=== PATIENT | male | born 1950 | race Caucasian/White ===

== ENCOUNTER → 2024-06-18 09:08 | Outpatient (BNVA) | payer SELFPAY | PROVIDERS: Visit Provider Clinical Nurse Specialist Adult Health | DX: E11.8 Type 2 diabetes mellitus with unspecified complications (principal); I10 Essential (primary) hypertension; E78.5 Hyperlipidemia, unspecified; E55.9 Vitamin D deficiency, unspecified | CPT/HCPCS: 80053; 80061; 82306; 82746; 83036; 83540; 83880; 85025 ==

== ENCOUNTER → 2024-07-20 08:59 | Outpatient (BNVA) | payer MEDICARE, SELFPAY | PROVIDERS: PCP Clinical Nurse Specialist Adult Health | DX: R50.9 Fever, unspecified (principal) | CPT/HCPCS: 87400; 87426 ==

== ENCOUNTER → 2024-09-03 10:41 | Outpatient (BNVA) | payer MEDICARE, SELFPAY | PROVIDERS: PCP Clinical Nurse Specialist Adult Health; Visit Provider Internal Medicine Cardiovascular Disease | DX: R07.9 Chest pain, unspecified (principal); I11.0 Hypertensive heart disease with heart failure; I50.9 Heart failure, unspecified; I47.20 Ventricular tachycardia, unspecified; E78.2 Mixed hyperlipidemia; E11.8 Type 2 diabetes mellitus with unspecified complications; G47.33 Obstructive sleep apnea (adult) (pediatric); E66.01 Morbid (severe) obesity due to excess calories; Z68.38 Body mass index [BMI] 38.0-38.9, adult; R94.31 Abnormal electrocardiogram [ECG] [EKG]; I45.10 Unspecified right bundle-branch block | CPT/HCPCS: 36415; 80048; 83880; 93005; 99205 ==

== ENCOUNTER 2024-09-12 20:59 | Emergency (ER) | payer MEDICARE, SELFPAY ==
[2024-09-12 21:16] VITALS: BP 131/60; PULSE 69; RESP 16; TEMP 36.9; O2SAT 92; BMI 42.5
[2024-09-12 21:31] LABS: Glucose Point of Care 551 mg/dL (70-110)
--- NOTE | 2024-09-12 21:54 | W.ED.RECABL ---
HPI - Recheck/Abnormal Lab/Rx General: Chief Complaint: Recheck/Abnormal Lab/Rx Stated Complaint: Blood Sugar register HIGH Time Seen by Provider: 09/12/24 21:39 History of Present Illness: Patient presents here to the ER because his glucometer read high. Patient is a insulin-dependent diabetic with a continuous glucose monitor and pump. There was some problem getting his normal insulin which was Humalog and he had to put Novolin R in his pump and has been working very good ever since for the last couple days. Related Data Home Medications Medication Instructions Recorded Confirmed acetaminophen 650 mg 650 mg PO Q8H 06/18/24 07/20/24 tablet,extended release (Tylenol Arthritis Pain) albuterol sulfate 2.5 mg/3 mL 2.5 mg inhalation Q6H PRN 06/18/24 07/20/24 (0.083 %) solution for nebulization shortness of breath or wheezing bupropion HCl 300 mg 24 hr tablet, 300 mg PO DAILY 06/18/24 07/20/24 extended release cetirizine 10 mg tablet 10 mg PO DAILY 06/18/24 07/20/24 cholecalciferol (vitamin D3) 25 25 mcg PO DAILY 06/18/24 07/20/24 mcg (1,000 unit) capsule docusate sodium 100 mg capsule 100 mg PO DAILY 06/18/24 07/20/24 (Colace) exenatide microspheres 2 mg/0.85 2 mg SUBCUT .weekly 06/18/24 07/20/24 mL subcutaneous auto-injector ([employer]) ezetimibe 10 mg tablet 10 mg PO DAILY 06/18/24 07/20/24 folic acid 1 mg tablet 1 mg PO DAILY 06/18/24 07/20/24 furosemide 40 mg tablet 80 mg PO DAILY 06/18/24 07/20/24 gabapentin 300 mg capsule 300 mg PO DAILY 06/18/24 07/20/24 insulin lispro 100 unit/mL 140 unit continuous subcutaneous 06/18/24 07/20/24 subcutaneous solution (Humalog infusion DAILY U-100 Insulin) isosorbide mononitrate 30 mg 30 mg PO DAILY 06/18/24 07/20/24 tablet,extended release 24 hr levothyroxine 200 mcg tablet 200 mcg PO DAILY 06/18/24 07/20/24 methotrexate sodium 2.5 mg tablet 20 mg PO .every week 06/18/24 07/20/24 metoclopramide HCl 10 mg tablet 10 mg PO DAILY 06/18/24 07/20/24 multivitamin with minerals-folic tab PO 06/18/24 07/20/24 acid 0.4 mg tablet omeprazole 20 mg capsule,delayed 20 mg PO DAILY 06/18/24 07/20/24 release prednisolone acetate 1 % eye 1 drp ophthalmic (eye) DAILY 06/18/24 07/20/24 drops,suspension ropinirole 3 mg tablet 3 mg PO .qhs 06/18/24 07/20/24 spironolactone 100 mg tablet 100 mg PO DAILY 06/18/24 07/20/24 Previous Rx's Medication Instructions Recorded adalimumab 40 mg/0.8 mL 40 mg (0.8 mL) SUBCUT Q14D #2 ea 06/18/24 subcutaneous syringe kit (Humira) ferrous sulfate 137 mg (45 mg 137 mg PO DAILY #30 tabs 06/18/24 iron) tablet,extended release (Slow Fe) CPAP Mask, tubing and all other #1 ea 06/20/24 supplies for CPAP benzonatate 200 mg capsule 200 mg PO BID PRN cough #20 caps 07/20/24 metoprolol succinate 50 mg 50 mg PO DAILY #90 tabs 09/03/24 tablet,extended release 24 hr insulin lispro 100 unit/mL 15 unit (0.15 mL) SUBCUT TID #15 mL 09/10/24 subcutaneous cartridge (Humalog U-100 Insulin) Allergies Allergy/AdvReac Type Severity Reaction Status Date / Time amoxicillin Allergy Severe anaphylaxis Verified 09/03/24 10:51 sulfamethoxazole Allergy Severe skin Verified 09/03/24 10:51 [From Bactrim] blisters trimethoprim [From Bactrim] Allergy Severe skin Verified 09/03/24 10:51 blisters meloxicam Allergy Intermediate swelling Verified 09/03/24 10:51 chlorhexadine Allergy Severe rash Uncoded 09/03/24 10:51 Review of Systems General: Reports: 10 or more systems reviewed and unremarkable except in HPI and below PFSH ED PFSH: Medical History NATIVIDAD (obstructive sleep apnea) Uses BiPAP Iron deficiency anemia Hx of bacterial pneumonia History of cystic kidney disease Seasonal allergies GERD (gastroesophageal reflux disease) Ventricular tachycardia Major depression Polymyalgia rheumatica Graves disease Laryngopharyngeal reflux Restless leg syndrome Congestive heart failure follows with cardiology Rheumatoid arthritis follows with rheumatology Vitamin D deficiency Hyperlipidemia Essential hypertension Type 2 diabetes mellitus with complication Surgical History History of bariatric surgery History of lumbar fusion Hx of fusion of cervical spine Hx of cataract extraction left eye Hx of cholecystectomy History of liver biopsy benign cysts Hx of eye surgery right eye Hx of thyroidectomy Hx of arthroscopy of right knee Hx of arthroscopy of left knee Hx of repair of right rotator cuff History of left shoulder replacement History of carpal tunnel surgery of left wrist Hx of colonoscopy with polypectomy 2023 Hx of right knee surgery History of tonsillectomy and adenoidectomy Hx of cornea transplant Family History Other Breast cancer Diabetes Heart disease Hyperlipidemia Hypertension Lung cancer Stroke Thyroid cancer Social History Smoking and tobacco/nicotine status: never used tobacco/nicotine Second hand smoke exposure: Yes (father) Alcohol intake: never Substance/Drug Use: never Household members: spouse Marital status: Highest education level completed: Master's Degree Current occupational status: retired Physical Exam Const: COMMON NORMALS: no acute distress, average body habitus, patient oriented x3, no limitations, healthy appearing, alert and well nourished HENMT: COMMON NORMALS: normocephalic, atraumatic, hearing grossly normal bilaterally, external ears normal, Normal external nose present and moist oral mucous membranes HEAD & SCALP: normocephalic and atraumatic NOSE: Normal external nose present EXTERNAL EAR: Yes external ears normal Neck/C-Spine: COMMON NORMALS: full ROM, no lymphadenopathy, supple, no meningeal signs, no JVD and Thyroid normal THYROID: Thyroid normal Chest: COMMONS NORMALS: normal inspection of the chest and normal palpation of entire chest wall Resp: COMMON NORMALS: normal respiratory effort, No retractions, No use of accessory muscles and clear to auscultation bilaterally AUSCULTATION: clear to auscultation bilaterally Cardio: COMMON NORMALS: no JVD, regular rate, regular rhythm, S1 normal heart sound present, S2 normal heart sound present, No gallops present (Cardio), No clicks present (Cardio), No murmurs present (Cardio) and No rub (Cardio) RATE: regular rate RHYTHM: regular rhythm HEART SOUNDS: S1 normal heart sound present and S2 normal heart sound present GI: COMMON NORMALS: Normal to inspection, nondistended, normoactive bowel sounds present, Soft to palpation, non-tender, No hepatosplenomegaly present and no masses PALPATION: Yes Soft to palpation and Yes No hepatosplenomegaly present Neuro: COMMON NORMALS: patient oriented x3 SENSORIUM/ORIENTATION: Yes alert MENINGEAL SIGNS: Yes no meningeal signs Course Vital Signs: Vital signs: Vital Signs Temperature 98.4 F 09/12/24 21:16 Pulse Rate 69 09/12/24 21:16 Respiratory Rate 16 09/12/24 21:16 Blood Pressure 131/60 09/12/24 21:16 Pulse Oximetry 92 09/12/24 21:16 Oxygen Delivery Me thod Room Air 09/12/24 21:16 MDM - Recheck/Abnormal Lab/Rx Medical Decision Making Patient had lab work, ketones were negative, initial blood glucose was 581 approximately. Patient was given total of 30 units of IV insulin his blood sugar went down to 300. Patient will be discharged home. Medical Records I reviewed the patient's medical records. Lab Data I reviewed the patient's lab results. 09/12/24 22:00 09/12/24 22:00 Laboratory Results WBC 9.21 10^3/uL (3.29-11.43) 09/12/24 22:00 RBC 4.18 10^6/uL (3.85-5.65) 09/12/24 22:00 Hgb 13.40 g/dL (11.27-16.99) 09/12/24 22:00 Hct 39.5 % (37-53) 09/12/24 22:00 MCV 94.5 fl (82-101) 09/12/24 22:00 MCH 32.1 pg (27-33) 09/12/24 22:00 MCHC 33.9 g/dL (30-55) 09/12/24 22:00 RDW 12.6 % (12.1-15.1) 09/12/24 22:00 Plt Count 209 10^3/cmm (157-399) 09/12/24 22:00 MPV 9.9 fL (7.4-10.4) 09/12/24 22:00 Neut % (Auto) 61.6 % 09/12/24 22:00 Lymph % (Auto) 27.5 % 09/12/24 22:00 Webster % (Auto) 6.0 % 09/12/24 22:00 Eos % (Auto) 4.3 % 09/12/24 22:00 Baso % (Auto) 0.3 % 09/12/24 22:00 Neut # (Auto) 5.67 10^3/uL (1.8-7.7) 09/12/24 22:00 Lymph # (Auto) 2.5 10^3/uL (0.8-4.8) 09/12/24 22:00 Webster # (Auto) 0.6 10^3/uL (0.2-0.9) 09/12/24 22:00 Eos # (Auto) 0.4 10^3/uL (0.0-0.8) 09/12/24 22:00 Baso # (Auto) 0.0 10^3/uL (0.0-0.1) 09/12/24 22:00 Nucleated RBC % (auto) 0 % 09/12/24 22:00 Nucleated RBCs # 0.0 /100WBC 09/12/24 22:00 Sodium 130 mmol/L (136-145) L 09/12/24 22:00 Potassium 4.8 mmol/L (3.5-5.1) 09/12/24 22:00 Chloride 92 mmol/L (98-107) L 09/12/24 22:00 Carbon Dioxide 24 mmol/L (22-29) 09/12/24 22:00 Anion Gap 18.8 (5-19) 09/12/24 22:00 BUN 24 mg/dL (8-23) H 09/12/24 22:00 Creatinine 1.3 mg/dL (0.7-1.2) H 09/12/24 22:00 GFR Calculation Not Reportable 09/12/24 22:00 Glucose 581 mg/dL (65-115) H* 09/12/24 22:00 POC Glucose 395 mg/dL (70-110) H 09/13/24 00:45 Calculated Osmolality 301 mOsm/kg (285-295) H 09/12/24 22:00 Calcium 8.4 mg/dL (8.5-10.5) L 09/12/24 22:00 Total Bilirubin 0.5 mg/dL (0.15-1.2) 09/12/24 22:00 AST 24 U/L (0-40) 09/12/24 22:00 ALT 20 U/L (0-41) 09/12/24 22:00 Alkaline Phosphatase 93 U/L (40-130) 09/12/24 22:00 Total Protein 6.9 g/dL (6.6-8.7) 09/12/24 22:00 Albumin 4.2 g/dL (3.5-5.2) 09/12/24 22:00 Globulin 2.7 g/dL (1.3-4.6) 09/12/24 22:00 Urine Color Yellow (Yellow) 09/12/24 22:00 Urine Appearance Clear (CLEAR) 09/12/24 22:00 Urine pH 7.0 (5-7) 09/12/24 22:00 Ur Specific Thomas 1.026 (1.005-1.030) 09/12/24 22:00 Urine Protein Negative (Negative) 09/12/24 22:00 Urine Glucose (UA) 3+ (Normal) H 09/12/24 22:00 Urine Ketones 2+ (Negative) H 09/12/24 22:00 Urine Blood Negative (Negative) 09/12/24 22:00 Urine Nitrate Negative (Negative) 09/12/24 22:00 Urine Bilirubin Negative (Negative) 09/12/24 22:00 Urine Urobilinogen 1.0 mg/dL (Negative) 09/12/24 22:00 Ur Leukocyte Esterase Negative (Negative) 09/12/24 22:00 Urine RBC 0-2 /hpf (0-2) 09/12/24 22:00 Urine WBC 0-5 /hpf (0-5) 09/12/24 22:00 Ur Squamous Epith Cells 0-5 /hpf (0-5) 09/12/24 22:00 Amorphous Sediment Not Reportable 09/12/24 22:00 Urine Bacteria None seen /hpf (NONE) 09/12/24 22:00 Hyaline Casts 0-4 /lpf H 09/12/24 22:00 Serum Ketones Negative (Negative) 09/12/24 22:00 No radiology studies performed this visit Discharge Plan Discharge Patient Disposition: Home Clinical Impression: Hyperglycemia due to diabetes mellitus Condition: Stable Prescriptions: No Action spironolactone 100 mg tablet 100 mg PO DAILY prednisolone acetate 1 % drops,suspension 1 drp ophthalmic (eye) DAILY methotrexate sodium 2.5 mg tablet 20 mg PO .every week folic acid 1 mg tablet 1 mg PO DAILY ezetimibe 10 mg tablet 10 mg PO DAILY furosemide 40 mg tablet 80 mg PO DAILY albuterol sulfate 2.5 mg /3 mL (0.083 %) solution for nebulization 2.5 mg inhalation Q6H PRN (Reason: shortness of breath or wheezing) cetirizine 10 mg tablet 10 mg PO DAILY isosorbide mononitrate 30 mg tablet extended release 24 hr 30 mg PO DAILY ropinirole 3 mg tablet 3 mg PO .qhs acetaminophen [Tylenol Arthritis Pain] 650 mg tablet extended release 650 mg PO Q8H docusate sodium [Colace] 100 mg capsule 100 mg PO DAILY gabapentin 300 mg capsule 300 mg PO DAILY omeprazole 20 mg capsule,delayed release(DR/EC) 20 mg PO DAILY levothyroxine 200 mcg tablet 200 mcg PO DAILY insulin lispro [Humalog U-100 Insulin] 100 unit/mL solution 140 unit continuous subcutaneous infusion DAILY metoclopramide HCl 10 mg tablet 10 mg PO DAILY cholecalciferol (vitamin D3) 25 mcg (1,000 unit) capsule 25 mcg PO DAILY bupropion HCl 300 mg tablet extended release 24 hr 300 mg PO DAILY multivit with min-folic acid 0.4 mg tablet PO Bydureon BCise 2 mg/0.85 mL auto-injector 2 mg SUBCUT .weekly Slow Fe 137 mg (45 mg iron) tablet extended release 137 mg PO DAILY Qty: 30 0RF Humira 40 mg/0.8 mL syringe kit 40 mg SUBCUT Q14D Qty: 2 0RF (DME) CPAP Mask, tubing and all other supplies for CPAP See Rx Instructions .ROUTE .MEDSUPPLY Qty: 1 0RF Rx Instructions: As directed benzonatate 200 mg capsule 200 mg PO BID PRN (Reason: cough) Qty: 20 0RF metoprolol succinate 50 mg tablet extended release 24 hr 50 mg PO DAILY Qty: 90 3RF Humalog U-100 Insulin 100 unit/mL cartridge 15 unit SUBCUT TID Qty: 15 0RF Discharge Orders: Discharge ED (Routine); Ordered 09/13/24 Ordered By: Del Bettencourt Patient Instructions: Diabetic Hyperglycemia (ED) Activity Restrictions/Additional Instructions: You are given a total of 30 units of fast acting insulin in the ER to help with your blood sugar. Please follow-up with your family practice physician and/or stitcher standard machine in the next couple days to try to arrange some change with your insulin pump and/or type of insulin that you are using. Otherwise you may have to institute a high dose sliding scale to keep your blood sugars more controlled. Coding Level of Care Code ED Med Surg Rn for Kosta Ocampo
[2024-09-12 21:57] VITALS: BP 134/52; PULSE 60; O2SAT 94
[2024-09-12 22:08] LABS: Basophils % 0.3 %; Eosinophils # 0.4 10^3/uL (0.0-0.8); Eosinophils % 4.3 %; Hematocrit 39.5 % (37-53); Lymphocytes # 2.5 10^3/uL (0.8-4.8); Lymphocytes % 27.5 %; Mean Corpuscular HGB Conc 33.9 g/dL (30-55); Mean Corpuscular Hemoglobin 32.1 pg (27-33); Mean Corpuscular Volume 94.5 fl (82-101); Mean Platelet Volume 9.9 fL (7.4-10.4); Monocytes # 0.6 10^3/uL (0.2-0.9); Neutrophils # 5.67 10^3/uL (1.8-7.7); Neutrophils % 61.6 %; Nucleated Red Blood Cells % 0 %; Platelet Count 209 10^3/cmm (157-399); Red Blood Count 4.18 10^6/uL (3.85-5.65); Red Cell Distribution Width 12.6 % (12.1-15.1); White Blood Count 9.21 10^3/uL (3.29-11.43)
[2024-09-12] MEDS: insulin lispro 100 unit/1 mL 15 UNIT SUBCUT ×2 (22:08→23:21)
[2024-09-12 22:18] LABS: Bilirubin Urine Negative (Negative); Blood Urine Negative (Negative); Glucose Urine UA 3+ (Normal); Ketones Urine 2+ (Negative); Leukocyte Esterase Urine Negative (Negative); Nitrate Urine Negative (Negative); Protein Urine Negative (Negative); Specific Gravity, Urine 1.026 (1.005-1.030); Urine Appearance Clear (CLEAR); Urine Color Yellow (Yellow)
[2024-09-12 22:22] LABS: Add Urine Microscopic? YES; Bacteria Urine None Seen /hpf; Hyaline Casts Urine 0-4 /lpf; RBC Urine 0-2 /hpf (0-2); Squamous Epithelial Cell Urine 0-5 /hpf (0-5); WBC Urine 0-5 /hpf (0-5)
[2024-09-12 22:24] LABS: Ketone (Acetest) Serum Negative (Negative)
[2024-09-12 22:25] LABS: Alanine Aminotransferase 20 U/L (0-41); Albumin Level 4.2 g/dL (3.5-5.2); Alkaline Phosphatase 93 U/L (40-130); Anion Gap 18.8 (5-19); Aspartate Amino Transferase 24 U/L (0-40); Blood Urea Nitrogen 24 mg/dL (8-23); Calcium 8.4 mg/dL (8.5-10.5); Carbon Dioxide 24 mmol/L (22-29); Chloride 92 mmol/L (98-107); Creatinine Clr Calc Pharmacy 63.8047; Globulin 2.7 g/dL (1.3-4.6); Osmolality Calculated 301 mOsm/kg (285-295); Potassium 4.8 mmol/L (3.5-5.1); Sodium 130 mmol/L (136-145); Total Bilirubin 0.5 mg/dL (0.15-1.2); Total Protein 6.9 g/dL (6.6-8.7)
[2024-09-12 22:27] LABS: Glucose 581 mg/dL (65-115)
[2024-09-12 23:08] LABS: Glucose Point of Care 530 mg/dL (70-110)
[2024-09-12 23:27] VITALS: PULSE 62; O2SAT 92
[2024-09-13 00:46] LABS: Glucose Point of Care 395 mg/dL (70-110)
[2024-09-13 00:57] VITALS: BP 127/71; PULSE 64; O2SAT 95
[2024-09-13 02:14] LABS: Glucose Point of Care 302 mg/dL (70-110)
[2024-09-13 02:27] VITALS: BP 134/90; PULSE 67; O2SAT 92
[2024-09-13 03:00] VITALS: BP 124/70; PULSE 59; O2SAT 95
[2024-09-13 03:06] VITALS: BP 124/70; PULSE 59; O2SAT 95
== END 2024-09-13 03:07 | disposition home or self-care (01) ==
PROVIDERS: Emergency Provider Emergency Medicine
DX: E11.65 Type 2 diabetes mellitus with hyperglycemia (principal); Z79.4 Long term (current) use of insulin; I10 Essential (primary) hypertension; E78.5 Hyperlipidemia, unspecified
CPT/HCPCS: 36415; 36416; 80053; 81001; 82009; 82962; 85025; 96372; 99284; J1815

== ENCOUNTER 2024-09-25 10:42 | Outpatient (CLI) | payer MEDICARE, SELFPAY ==
--- NOTE | 2024-09-25 11:15 | USCV_ITS ---
Tiff Prater Age: 74 Gender: M : 1950 Exam Date: 09/25/2024 10:54 Ordering Phys: Ranjit Sosa MD ([email or web address]) Technologist: DAVID [place]am [place] [facility] [place]: CHF BP: 124 / 86 HR: 71 Rhythm: Sinus Technical Quality: Adequate MEASUREMENTS (Male / Female) Normal Values 2D ECHO LV Diastolic Diameter PLAX 4.8 cm 4.2 - 5.9 / 3.9 - 5.3 cm IVS Diastolic Thickness 0.5 cm 0.6 - 1.0 / 0.6 - 0.9 cm IVS Systolic Thickness 1.8 cm LVPW Diastolic Thickness 1.6 cm 0.6 - 1.0 / 0.6 - 0.9 cm LVPW Systolic Thickness 1.5 cm LVOT Diameter 2.0 cm LV Ejection Fraction 2D Teich 60.0 % LV Ejection Fraction MOD 4C 63.9 % LV Ejection Fraction MOD 2C 68.3 % LV Ejection Fraction 2C AL 70.5 % LA Diameter 2.8 cm RA Systolic Volume 4C AL 23.4 ml RA Systolic Volume 4C MOD 22.3 ml LA Sys Volume AL 48.3 cm cubed LA Sys Volume Index AL 18.9 cm cubed/m squared Aorta at Sinotubular Diameter 2.3 cm IVC Diameter 1.7 cm M-MODE LA Ao Ratio MM 0.8 AV Cusp Separation MM 2.1 cm DOPPLER AV Peak Velocity 145.0 cm/s LVOT Peak Velocity 97.0 cm/s AV Area Cont Eq vti 2.2 cm squared AV Area Cont Eq pk 2.1 cm squared MV Peak Velocity 104.0 cm/s MV Area PHT 2.0 cm squared Mitral E to A Ratio 0.7 TR Peak Velocity 100.0 cm/s TR Peak Gradient 4.0 mmHg TR Mean Velocity 78.0 cm/s TR Mean Gradient 2.7 mmHg TR Velocity Time Integral 25.6 cm TV Peak E Velocity 33.0 cm/s Right Atrial Pressure 3.0 mmHg Pulmonary Artery Systolic Pressu 7.0 mmHg FINDINGS Left Ventricle Normal left ventricular size and systolic function, EF 65%.no regional wall motion abnormalities. Grade I/IV diastolic dysfunction (abnormal relaxation filling pattern), normal to mildly elevated filling pressures. Mild left ventricular hypertrophy. Right Ventricle The right ventricle is normal in size and function. Right Atrium The right atrium is normal in size. Left Atrium No gross abnormalities noted Mitral Valve No gross abnormalities noted Aortic Valve The leaflets could not be visualized well. Tricuspid Valve Trace tricuspid valve regurgitation. Pulmonic Valve Pulmonic valve not well visualized. Pericardium No pericardial effusion. Aorta Normal ascending aorta dimension. IVC The inferior vena cava appears normal. CONCLUSIONS Normal left ventricular size and systolic function, EF 65%.no regional wall motion abnormalities. Grade I/IV diastolic dysfunction (abnormal relaxation filling pattern), normal to mildly elevated filling pressures. Mild left ventricular hypertrophy. Trace tricuspid valve regurgitation. Estimated pulmonary artery peak systolic pressure probably within normal limits There is no pericardial effusion. Technically difficult study because of the poor ultrasonic window. Dr Ranjit Sosa MD FACC (Electronically Signed) Final Date: 02 October 2024 08:46 S
== END 2024-09-25 10:43 | disposition home or self-care (01) ==
LOC: RAD 10:43
PROVIDERS: PCP Family Medicine; Visit Provider Internal Medicine Cardiovascular Disease
DX: I50.30 Unspecified diastolic (congestive) heart failure (principal); R06.09 Other forms of dyspnea
CPT/HCPCS: 93306

== ENCOUNTER 2024-11-10 17:57 | Inpatient (IN) | payer MEDICARE, SELFPAY ==
[2024-11-10] VITALS (8 sets, daily range): BP systolic 97–124; BP diastolic 54–68; PULSE 52–72; RESP 16–19; TEMP 36.4–36.5; O2SAT 94–97; BMI 42.5; BMI 44.5
--- NOTE | 2024-11-10 18:06 | ECG_ITS ---
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 Measurements Intervals Conroy Rate: 65 P: 66 NE: 169 QRS: 85 QRSD: 145 T: 55 QT: 433 QTc: 452 Interpretive Statements SINUS RHYTHM WITH FREQUENT VENTRICULAR PREMATURE COMPLEXES IN A BIGEMINAL PATTERN RIGHT BUNDLE BRANCH BLOCK [120+ ms QRS DURATION, UPRIGHT V1, 40+ ms S IN I/aVL/V4/V5/V6] Compared to ECG 09/03/2024 10:46:05 Ventricular premature complex(es) now present Sinus arrhythmia no longer present Right-axis deviation no longer present Electronically Signed On 11-10-2024 21:32:00 DIRECTOR OF SOLUTIONS ARCHITECTURE by Ranjit Sosa M.D. [email or web address]
--- NOTE | 2024-11-10 18:27 | CTR_ITS ---
PROCEDURE INFORMATION: Exam: CT Head Without Contrast Exam date and time: 11/10/2024 6:36 PM Age: 74 years old Clinical indication: Patient HX: Dizziness with general weakness; Additional info: Dizzy TECHNIQUE: Imaging protocol: Computed tomography of the head without contrast. Radiation optimization: All CT scans at this facility use at least one of these dose optimization techniques: automated exposure control; mA and/or kV adjustment per patient size (includes targeted exams where dose is matched to clinical indication); or iterative reconstruction. COMPARISON: No relevant prior studies available. RADIATION DOSE METRICS: Total DLP (mGy-cm): 1087.78 FINDINGS: Brain: Mild periventricular white matter hypoattenuation. No acute intracranial hemorrhage. No acute territorial infarction. Cerebral ventricles: No ventriculomegaly. Paranasal sinuses: Mild paranasal mucosal sinus thickening. Mastoid air cells: Visualized mastoid air cells are well aerated. Bones: Unremarkable. No acute fracture. Soft tissues: Unremarkable. CT/CT head wo con* [id number] IMPRESSION: 1. No acute intracranial abnormality. 2. Mild chronic ischemic small-vessel disease.
--- NOTE | 2024-11-10 18:27 | XRR_ITS ---
PROCEDURE INFORMATION: Exam: XR Chest Exam date and time: 11/10/2024 7:22 PM Age: 74 years old Clinical indication: Other: Dizzy TECHNIQUE: Imaging protocol: Radiologic exam of the chest. Views: 1 view. COMPARISON: No relevant prior studies available. FINDINGS: Lungs: Moderate bronchovascular prominence and vascular crowding noted at the hilar regions bilaterally. No focal consolidation. Pleural spaces: No significant pleural effusion. No definitive pneumothorax. Heart/Mediastinum: The cardiomediastinal silhouette is enlarged. Bones/joints: Unremarkable. XR/XR chest 1V portable [id number] IMPRESSION: Cardiomegaly with findings suggesting pulmonary vascular congestion.
--- NOTE | 2024-11-10 19:00 | W.ED.DIZZY ---
HPI - Dizziness General: Chief Complaint: Dizziness Stated Complaint: weak and dizzy Time Seen by Provider: 11/10/24 18:22 History of Present Illness: HPI Narrative: 74-year-old male patient with no history of coronary disease he tells me. He says that he does have a history of bigeminy and right bundle branch block. He reports dizziness for the last 3 to 4 days. His dizziness he describes as nearly passing out. It is worse with changing position. His blood pressure has been low, particularly the diastolic number, which has been in the 40s. He has not been ill otherwise. No fever. No vomiting. No cough. He does not describe overt syncope. Related Data Home Medications Medication Instructions Recorded Confirmed acetaminophen 650 mg 650 mg PO Q8H 06/18/24 11/10/24 tablet,extended release (Tylenol Arthritis Pain) albuterol sulfate 2.5 mg/3 mL 2.5 mg inhalation Q6H PRN 06/18/24 11/10/24 (0.083 %) solution for nebulization shortness of breath or wheezing cetirizine 10 mg tablet 10 mg PO DAILY 06/18/24 11/10/24 docusate sodium 100 mg capsule 100 mg PO DAILY PRN Constipation 06/18/24 11/10/24 (Colace) ezetimibe 10 mg tablet 10 mg PO DAILY 06/18/24 11/10/24 folic acid 1 mg tablet 1 mg PO DAILY 06/18/24 11/10/24 furosemide 40 mg tablet 80 mg PO DAILY 06/18/24 11/10/24 gabapentin 300 mg capsule 300 mg PO DAILY 06/18/24 11/10/24 insulin lispro 100 unit/mL 140 unit continuous subcutaneous 06/18/24 11/10/24 subcutaneous solution (Humalog infusion DAILY U-100 Insulin) isosorbide mononitrate 30 mg 30 mg PO DAILY 06/18/24 11/10/24 tablet,extended release 24 hr levothyroxine 200 mcg tablet 200 mcg PO DAILY 06/18/24 11/10/24 methotrexate sodium 2.5 mg tablet 20 mg PO .every week 06/18/24 11/10/24 metoclopramide HCl 10 mg tablet 10 mg PO DAILY 06/18/24 11/10/24 multivitamin with minerals-folic 1 tab PO DAILY 06/18/24 11/10/24 acid 0.4 mg tablet prednisolone acetate 1 % eye 1 drp ophthalmic (eye) DAILY 06/18/24 11/10/24 drops,suspension spironolactone 100 mg tablet 100 mg PO DAILY 06/18/24 11/10/24 semaglutide 0.25 mg or 0.5 mg (2 0.5 mg SUBCUT .Once a week 09/19/24 11/10/24 mg/3 mL) subcutaneous pen injector (Ozempic) insulin lispro 100 unit/mL 15 unit SUBCUT TID PRN blood sugar 11/10/24 11/10/24 subcutaneous cartridge (Humalog U-100 Insulin) Previous Rx's Medication Instructions Recorded adalimumab 40 mg/0.8 mL 40 mg (0.8 mL) SUBCUT Q14D #2 ea 06/18/24 subcutaneous syringe kit (Humira) CPAP Mask, tubing and all other #1 ea 06/20/24 supplies for CPAP metoprolol succinate 50 mg 50 mg PO DAILY #90 tabs 09/03/24 tablet,extended release 24 hr Bipap, mask and supplies #1 ea 09/19/24 ropinirole 3 mg tablet 3 mg PO .qhs #90 tabs 09/19/24 tamsulosin 0.4 mg capsule 0.4 mg PO DAILY #30 caps 09/19/24 bupropion HCl 300 mg 24 hr tablet, 300 mg PO DAILY #90 tabs 11/05/24 extended release omeprazole 20 mg capsule,delayed 20 mg PO DAILY #90 caps 11/05/24 release Allergies Allergy/AdvReac Type Severity Reaction Status Date / Time amoxicillin Allergy Severe anaphylaxis Verified 11/10/24 18:11 sulfamethoxazole Allergy Severe skin Verified 11/10/24 18:11 [From Bactrim] blisters trimethoprim [From Bactrim] Allergy Severe skin Verified 11/10/24 18:11 blisters meloxicam Allergy Intermediate swelling Verified 11/10/24 18:11 chlorhexadine Allergy Severe rash Uncoded 09/03/24 10:51 [facility] ED PFSH: Medical History NATIVIDAD (obstructive sleep apnea) Uses BiPAP Iron deficiency anemia Hx of bacterial pneumonia History of cystic kidney disease Seasonal allergies GERD (gastroesophageal reflux disease) Ventricular tachycardia Major depression Polymyalgia rheumatica Graves disease Laryngopharyngeal reflux Restless leg syndrome Congestive heart failure follows with cardiology Rheumatoid arthritis follows with rheumatology Vitamin D deficiency Hyperlipidemia Essential hypertension Type 2 diabetes mellitus with complication Surgical History History of bariatric surgery History of lumbar fusion Hx of fusion of cervical spine Hx of cataract extraction left and right eye Hx of cholecystectomy History of liver biopsy benign cysts Hx of eye surgery right eye Hx of thyroidectomy Hx of arthroscopy of right knee Hx of arthroscopy of left knee Hx of repair of right rotator cuff History of left shoulder replacement History of carpal tunnel surgery of left wrist Hx of colonoscopy with polypectomy 2023 Hx of right knee surgery History of tonsillectomy and adenoidectomy Hx of cornea transplant Family History Father Congestive heart failure (CHF) COPD (chronic obstructive pulmonary disease) Other Breast cancer Diabetes Heart disease Hyperlipidemia Hypertension Lung cancer Stroke Thyroid cancer Social History Smoking and tobacco/nicotine status: never used tobacco/nicotine Second hand smoke exposure: Yes (father) Alcohol intake: current Alcohol intake frequency: holidays/special occasions only Substance/Drug Use: never Household members: spouse Marital status: Highest education level completed: Master's Degree Current occupational status: retired Previous occupational history: [employer] Physical Exam Const: GENERAL APPEARANCE: cooperative; not frail appearing HENMT: COMMON NORMALS: normocephalic, atraumatic and Normal external nose present HEAD & SCALP: normocephalic and atraumatic FACE & SINUS: normal facial exam and face symmetric NOSE: Normal external nose present Eye: COMMON NORMALS: Equal, round and reactive pupils present and EOMs intact bilaterally PUPIL: Yes Equal, round and reactive pupils present Neck/C-Spine: GENERAL: Yes trachea midline Chest: CHEST: Yes Symmetrical chest wall rise Resp: COMMON NORMALS: normal respiratory effort, No retractions, No use of accessory muscles and clear to auscultation bilaterally AUSCULTATION: clear to auscultation bilaterally Cardio: RATE: bradycardic RHYTHM: abnormal rhythm irregularly irregular GI: COMMON NORMALS: Normal to inspection, nondistended, normoactive bowel sounds present Extremity: COMMON NORMALS: no pedal edema Neuro: MELINDA COMA SCALE: document GCS findings Huggins coma scale eye opening: Spontaneous Huggins coma scale verbal response: Orientated Huggins coma scale motor response: Obey commands Melinda coma scale total score: 15 SENSORY EXAM: Yes extremities (intact) Psych: COMMON NORMALS: speech normal SPEECH: Yes normal speech Skin: COMMON NORMALS: no rashes or lesions noted GENERAL SKIN EXAM: no rashes or lesions noted Course Vital Signs: Vital signs: Vital Signs Temperature 97.7 F 11/11/24 11:36 Pulse Rate 71 11/11/24 11:36 Respiratory Rate 15 11/11/24 11:36 Blood Pressure 137/62 11/11/24 11:36 Pulse Oximetry 93 11/11/24 11:36 Oxygen Delivery Me thod Room Air 11/11/24 11:36 MDM - Dizziness Medical Decision Making Although this patient registers a consistent heart rate around 60-65, the patient has prolonged periods of ventricular bigeminy on the monitor, but the PVCs are static so closely to the normal QRS segment, that he is only conducting 1 of those beats, therefore giving him a functional distal pulse in the low 30s. He is symptomatic with this. Most likely reason for his dizziness. CBC is normal. Other laboratory and CT is pending. He is on metoprolol, 50 mg daily. He will need to be observed. Spoke with hospitalist, and with cardiology who will consult. Lab Data 11/10/24 19:18 11/11/24 01:23 Radiology Impressions Chest X-Ray 11/10/24 18:27 IMPRESSION: Cardiomegaly with findings suggesting pulmonary vascular congestion. Head CT 11/10/24 18:27 IMPRESSION: 1. No acute intracranial abnormality. 2. Mild chronic ischemic small-vessel disease. Chest CTA 11/11/24 12:59 IMPRESSION: Bilateral acute pulmonary embolism. ADDENDUM: 11/11/24 0069 THIS REPORT CONTAINS FINDINGS THAT MAY BE CRITICAL TO PATIENT CARE. The findings were verbally communicated via telephone conference with RON Bertrand at 1:57 PM CONSUMER RELATIONS COMPLAINT CLERK on 11/11/2024. The findings were acknowledged and understood. Laboratory Results WBC 8.64 10^3/uL (3.29-11.43) 11/10/24 19:18 RBC 4.06 10^6/uL (3.85-5.65) 11/10/24 19:18 Hgb 13.00 g/dL (11.27-16.99) 11/10/24 19:18 Hct 39.1 % (37-53) 11/10/24 19:18 MCV 96.3 fl (82-101) 11/10/24 19:18 MCH 32.0 pg (27-33) 11/10/24 19:18 MCHC 33.2 g/dL (30-55) 11/10/24 19:18 RDW 13.3 % (12.1-15.1) 11/10/24 19:18 Plt Count 181 10^3/cmm (157-399) 11/10/24 19:18 MPV 9.5 fL (7.4-10.4) 11/10/24 19:18 Neut % (Auto) 53.2 % 11/10/24 19:18 Lymph % (Auto) 34.7 % 11/10/24 19:18 [place] % (Auto) 8.7 % 11/10/24 19:18 Eos % (Auto) 2.9 % 11/10/24 19:18 Baso % (Auto) 0.2 % 11/10/24 19:18 Neut # (Auto) 4.59 10^3/uL (1.8-7.7) 11/10/24 19:18 Lymph # (Auto) 3.0 10^3/uL (0.8-4.8) 11/10/24 19:18 [place] # (Auto) 0.8 10^3/uL (0.2-0.9) 11/10/24 19:18 Eos # (Auto) 0.3 10^3/uL (0.0-0.8) 11/10/24 19:18 Baso # (Auto) 0.0 10^3/uL (0.0-0.1) 11/10/24 19:18 Nucleated RBC % (auto) 0 % 11/10/24 19:18 Nucleated RBCs # 0.0 /100WBC 11/10/24 19:18 PT 13.10 SECONDS (12.1-14.9) 11/10/24 19:18 INR 0.92 (0.8-1.2) 11/10/24 19:18 APTT 29.4 SECONDS (23.9-36.7) 11/10/24 19:18 D-Dimer 5.65 ug/mLFEU (0-0.59) H 11/10/24 19:18 Sodium 139 mmol/L (136-145) 11/10/24 19:18 Potassium 4.2 mmol/L (3.5-5.1) 11/10/24 19:18 Chloride 94 mmol/L (98-107) L 11/10/24 19:18 Carbon Dioxide 26 mmol/L (22-29) 11/10/24 19:18 Anion Gap 23.2 (5-19) H 11/10/24 19:18 BUN 20 mg/dL (8-23) 11/10/24 19:18 Creatinine 1.2 mg/dL (0.7-1.2) 11/10/24 19:18 GFR Calculation Not Reportable 11/10/24 19:18 Glucose 106 mg/dL (65-115) 11/10/24 19:18 Calculated Osmolality 291 mOsm/kg (285-295) 11/10/24 19:18 Calcium 9.0 mg/dL (8.5-10.5) 11/10/24 19:18 Phosphorus 3.8 mg/dL (2.5-4.5) 11/10/24 19:18 Magnesium 2.1 mg/dL (1.7-2.3) 11/10/24 19:18 Total Bilirubin 0.2 mg/dL (0.15-1.2) 11/10/24 19:18 AST 20 U/L (0-40) 11/10/24 19:18 ALT 17 U/L (0-41) 11/10/24 19:18 Alkaline Phosphatase 86 U/L (40-130) 11/10/24 19:18 Troponin T Baseline 19 ng/L (0-15) H 11/10/24 19:18 C-React Prot High Sens 0.700 mg/dL (0.0-0.3) H 11/10/24 19:18 NT-Pro-B Natriuret Pep 378 pg/mL (0-450) 11/10/24 19:18 Total Protein 6.2 g/dL (6.6-8.7) L 11/10/24 19:18 Albumin 4.0 g/dL (3.5-5.2) 11/10/24 19:18 Globulin 2.2 g/dL (1.3-4.6) 11/10/24 19:18 TSH 3.64 uIU/mL (0.27-4.20) 11/10/24 19:18 All radiology interpretation(s) finalized by discharge Discharge Plan Discharge Patient Disposition: Placed in Observation Admit Provider: Ratna Bailon Clinical Impression: Bradycardia, severe sinus Coding Level of Care Code ED Marker Shipments for Kosta Ocampo
[2024-11-10 19:26] LABS: Basophils % 0.2 %; Eosinophils # 0.3 10^3/uL (0.0-0.8); Eosinophils % 2.9 %; Hematocrit 39.1 % (37-53); Lymphocytes % 34.7 %; Mean Corpuscular HGB Conc 33.2 g/dL (30-55); Mean Corpuscular Volume 96.3 fl (82-101); Mean Platelet Volume 9.5 fL (7.4-10.4); Monocytes # 0.8 10^3/uL (0.2-0.9); Monocytes % 8.7 %; Neutrophils # 4.59 10^3/uL (1.8-7.7); Neutrophils % 53.2 %; Nucleated Red Blood Cells % 0 %; Platelet Count 181 10^3/cmm (157-399); Red Blood Count 4.06 10^6/uL (3.85-5.65); Red Cell Distribution Width 13.3 % (12.1-15.1); White Blood Count 8.64 10^3/uL (3.29-11.43)
[2024-11-10 19:43] LABS: INR 0.92 (0.8-1.2)
[2024-11-10 19:44] LABS: Partial Thromboplastin Time 29.4 SECONDS (23.9-36.7)
--- NOTE | 2024-11-10 19:48 | P.HP_ITS ---
Providers/Chief Complaint 2 Primary Care Provider: Rupesh Demarco MD Chief Complaint: weak and dizzy History of Present Illness Tiff Prater is a 74 year old male with history of V. tach in the past has seen Dr. Sosa, patient is not on any antiarrhythmics, takes multiple antihypertensive regimen including metoprolol, he has BiPAP at home that he uses every night, does not use oxygen the daytime, independent for daily activities, presenting with chief complaint of last 3 days of presyncopal event, dizziness and low blood pressure. Despite all that he has taken his antihypertensive regimen. He is denying syncopal events. No chest pain at all. He is denying fever, nausea, vomiting or diarrhea. In the ER his EKG showing multiple PVCs He is hemodynamically stable blood pressure 124/60 mm catheter my evaluation he is on room air No active chest pain at all troponin traded out Dr. Sosa consulted I have requested TSH, echo head CT unremarkable Review of Systems 2 Const: Denies: fever(s) Eyes: Denies: change in vision ENMT: Denies: throat pain Card: Reports: lightheadedness Resp: Denies: dyspnea GI: Denies: abdominal pain : Denies: flank pain Musc: Denies: neck pain Medications/Allergies Home Medications Medication Instructions Recorded Confirmed Last Taken Type acetaminophen 650 mg 650 mg PO Q8H 06/18/24 09/19/24 Unknown History tablet,extended release (Tylenol Arthritis Pain) adalimumab 40 mg/0.8 mL 40 mg (0.8 mL) SUBCUT Q14D #2 ea 06/18/24 09/19/24 Unknown Rx subcutaneous syringe kit (Humira) albuterol sulfate 2.5 mg/3 mL 2.5 mg inhalation Q6H PRN 06/18/24 09/19/24 Unknown History (0.083 %) solution for nebulization shortness of breath or wheezing cetirizine 10 mg tablet 10 mg PO DAILY 06/18/24 09/19/24 Unknown History cholecalciferol (vitamin D3) 25 25 mcg PO DAILY 06/18/24 09/19/24 Unknown History mcg (1,000 unit) capsule docusate sodium 100 mg capsule 100 mg PO DAILY 06/18/24 09/19/24 Unknown History (Colace) ezetimibe 10 mg tablet 10 mg PO DAILY 06/18/24 09/19/24 Unknown History ferrous sulfate 137 mg (45 mg 137 mg PO DAILY #30 tabs 06/18/24 09/19/24 Unknown Rx iron) tablet,extended release (Slow Fe) folic acid 1 mg tablet 1 mg PO DAILY 06/18/24 09/19/24 Unknown History furosemide 40 mg tablet 80 mg PO DAILY 06/18/24 09/19/24 Unknown History gabapentin 300 mg capsule 300 mg PO DAILY 06/18/24 09/19/24 Unknown History insulin lispro 100 unit/mL 140 unit continuous subcutaneous 06/18/24 09/19/24 Unknown History subcutaneous solution (Humalog infusion DAILY U-100 Insulin) isosorbide mononitrate 30 mg 30 mg PO DAILY 06/18/24 09/19/24 Unknown History tablet,extended release 24 hr levothyroxine 200 mcg tablet 200 mcg PO DAILY 06/18/24 09/19/24 Unknown History methotrexate sodium 2.5 mg tablet 20 mg PO .every week 06/18/24 09/19/24 Unknown History metoclopramide HCl 10 mg tablet 10 mg PO DAILY 06/18/24 09/19/24 Unknown History multivitamin with minerals-folic tab PO 06/18/24 09/19/24 Unknown History acid 0.4 mg tablet prednisolone acetate 1 % eye 1 drp ophthalmic (eye) DAILY 06/18/24 09/19/24 Unknown History drops,suspension spironolactone 100 mg tablet 100 mg PO DAILY 06/18/24 09/19/24 Unknown History CPAP Mask, tubing and all other #1 ea 06/20/24 09/19/24 Unknown Rx supplies for CPAP benzonatate 200 mg capsule 200 mg PO BID PRN cough #20 caps 07/20/24 09/19/24 Unknown Rx metoprolol succinate 50 mg 50 mg PO DAILY #90 tabs 09/03/24 09/19/24 Unknown Rx tablet,extended release 24 hr insulin lispro 100 unit/mL 15 unit (0.15 mL) SUBCUT TID #15 mL 09/10/24 09/19/24 Unknown Rx subcutaneous cartridge (Humalog U-100 Insulin) Bipap, mask and supplies #1 ea 09/19/24 09/19/24 Unknown Rx ropinirole 3 mg tablet 3 mg PO .qhs #90 tabs 09/19/24 09/19/24 Unknown Rx semaglutide 0.25 mg or 0.5 mg (2 mg SUBCUT .Once a week 09/19/24 09/19/24 Unknown History mg/3 mL) subcutaneous pen injector ([employer]) tamsulosin 0.4 mg capsule 0.4 mg PO DAILY #30 caps 09/19/24 09/19/24 Unknown Rx bupropion HCl 300 mg 24 hr tablet, 300 mg PO DAILY #90 tabs 11/05/24 Unknown Rx extended release omeprazole 20 mg capsule,delayed 20 mg PO DAILY #90 caps 11/05/24 Unknown Rx release Allergies Allergy/AdvReac Type Severity Reaction Status Date / Time amoxicillin Allergy Severe anaphylaxis Verified 11/10/24 18:11 sulfamethoxazole Allergy Severe skin Verified 11/10/24 18:11 [From Bactrim] blisters trimethoprim [From Bactrim] Allergy Severe skin Verified 11/10/24 18:11 blisters meloxicam Allergy Intermediate swelling Verified 11/10/24 18:11 chlorhexadine Allergy Severe rash Uncoded 09/03/24 10:51 PFSH Acute 2 PFSH: Medical History NATIVIDAD (obstructive sleep apnea) Uses BiPAP Iron deficiency anemia Hx of bacterial pneumonia History of cystic kidney disease Seasonal allergies GERD (gastroesophageal reflux disease) Ventricular tachycardia Major depression Polymyalgia rheumatica Graves disease Laryngopharyngeal reflux Restless leg syndrome Congestive heart failure follows with cardiology Rheumatoid arthritis follows with rheumatology Vitamin D deficiency Hyperlipidemia Essential hypertension Type 2 diabetes mellitus with complication Surgical History History of bariatric surgery History of lumbar fusion Hx of fusion of cervical spine Hx of cataract extraction left and right eye Hx of cholecystectomy History of liver biopsy benign cysts Hx of eye surgery right eye Hx of thyroidectomy Hx of arthroscopy of right knee Hx of arthroscopy of left knee Hx of repair of right rotator cuff History of left shoulder replacement History of carpal tunnel surgery of left wrist Hx of colonoscopy with polypectomy 2023 Hx of right knee surgery History of tonsillectomy and adenoidectomy Hx of cornea transplant Family History Father Congestive heart failure (CHF) COPD (chronic obstructive pulmonary disease) Other Breast cancer Diabetes Heart disease Hyperlipidemia Hypertension Lung cancer Stroke Thyroid cancer Social History Smoking and tobacco/nicotine status: never used tobacco/nicotine Second hand smoke exposure: Yes (father) Alcohol intake: current Alcohol intake frequency: holidays/special occasions only Substance/Drug Use: never Household members: spouse Marital status: Highest education level completed: Master's Degree Current occupational status: retired 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 Vitals/I&O/Wt Last Vital Signs Temp 97.5 F L 11/10/24 18:01 Pulse 65 11/10/24 19:21 Resp 16 11/10/24 19:21 BP 121/54 11/10/24 19:21 Pulse Ox 97 11/10/24 19:21 O2 Del Method Room Air 11/10/24 19:21 11/10/24 11/10/24 11/10/24 06:59 14:59 22:59 Intake Total 0 / 0 Balance 0 / 0 Weight last 48 hrs Weight 127.006 kg Physical Exam 2 Narrative: Morbidly obese male Hemodynamically stable No active chest pain S1, S2 with multiple PVCs Awake and alert Nonfocal neuroexam GCS 15 Distended abdomen nontender Pleasant and cooperative No acute distress Data 11/10/24 19:18 11/10/24 19:18 A&P Assessment and plan (1) Polymyalgia rheumatica: (2) Rheumatoid arthritis: (3) Restless leg syndrome: (4) NATIVIDAD (obstructive sleep apnea): (5) Ventricular tachycardia: (6) Heart murmur, systolic: (7) Congestive heart failure: Qualifiers: Heart failure type: unspecified Heart failure chronicity: unspecified Qualified Code(s): I50.9 - Heart failure, unspecified (8) Essential hypertension: (9) Bigeminy: (10) Pre-syncope: Plan Symptomatic bigeminy Multiple PVCs [place] potassium of 4, magnesium of 2 No active chest pain EKG without ischemic or refractory changes Troponin negative delta Requested echo I would only continue metoprolol for now Request D-dimer Presyncope Patient has kept taking his antihypertensive regimen despite low blood pressure at home No recent syncopal event No active chest pain Hold antihypertensive regimen Adjust antihypertensive regimen before discharge History of inflammatory arthritis: Hold methotrexate for now History of sleep apnea uses BiPAP at home BPH: Continue tamsulosin Hypothyroid: Continue levothyroxine Type II diabetic: Continue insulin sliding scale with cardiac consistent carb diet Full code GCS 15 DVT prophylaxis Lovenox Attestations 2 Medical Necessity Statement*: Anticipating discharge within 48 hours Diagnoses Polymyalgia rheumatica M35.3 Rheumatoid arthritis M06.9 Restless leg syndrome G25.81 NATIVIDAD (obstructive sleep apnea) G47.33 Ventricular tachycardia I47.20 Heart murmur, systolic R01.1 Congestive heart failure, unspecified HF chronicity, unspecified heart failure type I50.9 Heart failure type: unspecified Heart failure chronicity: unspecified Essential hypertension I10 Bigeminy I49.8 Pre-syncope R55
[2024-11-10 19:52] LABS: Troponin(5th) Baseline 19 ng/L (0-15)
[2024-11-10 20:04] LABS: Alanine Aminotransferase 17 U/L (0-41); Alkaline Phosphatase 86 U/L (40-130); Anion Gap 23.2 (5-19); Aspartate Amino Transferase 20 U/L (0-40); Blood Urea Nitrogen 20 mg/dL (8-23); Carbon Dioxide 26 mmol/L (22-29); Chloride 94 mmol/L (98-107); Creatinine Clr Calc Pharmacy 69.0944; Globulin 2.2 g/dL (1.3-4.6); Glucose 106 mg/dL (65-115); Magnesium 2.1 mg/dL (1.7-2.3); NT Pro B Type Natriuretic Pept 378 pg/mL (0-450); Osmolality Calculated 291 mOsm/kg (285-295); Phosphorus 3.8 mg/dL (2.5-4.5); Potassium 4.2 mmol/L (3.5-5.1); Sodium 139 mmol/L (136-145); Total Bilirubin 0.2 mg/dL (0.15-1.2); Total Protein 6.2 g/dL (6.6-8.7)
[2024-11-10 20:36] LABS: Thyroid Stimulating Hormone 3.64 uIU/mL (0.27-4.20)
[2024-11-10 21:26] LABS: Troponin 5 2HR 17.46 ng/L (0-15)
[2024-11-10 21:28] LABS: Troponin 5 2HR Delta -1.54 ABS# (0-10)
[2024-11-10 22:17] LABS: D Dimer 5.65 ug/mLFEU (0-0.59)
[2024-11-10] MEDS: enoxaparin 40 mg/0.4 mL Syringe SUBCUT (22:26)
--- NOTE | 2024-11-10 23:00 | ECG_ITS ---
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 Measurements Intervals [place] Rate: 58 P: 63 MA: 184 QRS: 81 QRSD: 161 T: 50 QT: 463 QTc: 455 Interpretive Statements SINUS BRADYCARDIA WITH FREQUENT VENTRICULAR PREMATURE COMPLEXES RIGHT BUNDLE BRANCH BLOCK [120+ ms QRS DURATION, UPRIGHT V1, 40+ ms S IN I/aVL/V4/V5/V6] Compared to ECG 11/10/2024 18:06:52 Sinus rhythm no longer present Electronically Signed On 11-11-2024 13:35:35 VP OF CUSTOMER EXPERIENCE STRATEGY by Ranjit Sosa M.D. [id number]
[2024-11-11] VITALS (10 sets, daily range): BP systolic 111–137; BP diastolic 62–75; PULSE 54–71; RESP 15–18; TEMP 36.4–36.9; O2SAT 93–96
--- NOTE | 2024-11-11 00:28 | ECG_ITS ---
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 Measurements Intervals [place] Rate: 58 P: 58 MS: 184 QRS: 77 QRSD: 143 T: 57 QT: 457 QTc: 450 Interpretive Statements SINUS BRADYCARDIA WITH OCCASIONAL VENTRICULAR PREMATURE COMPLEXES RIGHT BUNDLE BRANCH BLOCK [120+ ms QRS DURATION, UPRIGHT V1, 40+ ms S IN I/aVL/V4/V5/V6] Compared to ECG 11/10/2024 23:00:45 No significant changes Electronically Signed On 11-11-2024 13:35:43 CATECHIST by Ranjit Sosa M.D. [id number]
[2024-11-11 02:03] LABS: Anion Gap 25.1 (5-19); Blood Urea Nitrogen 21 mg/dL (8-23); Carbon Dioxide 25 mmol/L (22-29); Chloride 95 mmol/L (98-107); Creatinine Clr Calc Pharmacy 85.0261; Glucose 94 mg/dL (65-115); Magnesium 2.1 mg/dL (1.7-2.3); Osmolality Calculated 295 mOsm/kg (285-295); Potassium 4.1 mmol/L (3.5-5.1); Sodium 141 mmol/L (136-145)
[2024-11-11] MEDS: levothyroxine 200 mcg Tablet PO (05:17)
[2024-11-11 06:23] LABS: Glucose Point of Care 66 mg/dL (70-110)
[2024-11-11 07:03] LABS: Bilirubin Urine Negative (Negative); Blood Urine Negative (Negative); Glucose Urine UA Negative (Normal); Ketones Urine Negative (Negative); Leukocyte Esterase Urine Negative (Negative); Nitrate Urine Negative (Negative); Protein Urine Negative (Negative); Specific Gravity, Urine 1.018 (1.005-1.030); Urine Appearance Clear (CLEAR); Urine Color Yellow (Yellow); Urobilinogen Urine 0.2 mg/dL (Negative); pH Urine 5.5 (5-7)
[2024-11-11 07:07] LABS: Add Urine Microscopic? YES; Bacteria Urine None Seen /hpf; Hyaline Casts Urine 0-4 /lpf; RBC Urine 0-2 /hpf (0-2); Squamous Epithelial Cell Urine 0-5 /hpf (0-5); WBC Urine 0-5 /hpf (0-5)
--- NOTE | 2024-11-11 08:25 | USR_ITS ---
PROCEDURE INFORMATION: Exam: US Duplex Lower Extremity Veins, Bilateral Exam date and time: 11/11/2024 1:52 PM Age: 74 years old Clinical indication: Screening exam; Assess for dvt TECHNIQUE: Imaging protocol: Real-time duplex ultrasound of the bilateral extremities with 2-D calles scale, color Doppler flow and spectral waveform analysis including responses to compression and other maneuvers (when performed) with image documentation. Complete exam focused on the lower extremity veins. COMPARISON: No relevant prior studies available. FINDINGS: Right deep veins: Unremarkable. The common femoral, femoral, proximal profunda femoral and popliteal veins are patent without thrombus. Normal Doppler waveforms. Normal compressibility and/or augmentation response. Left deep veins: Unremarkable. The common femoral, femoral, proximal profunda femoral and popliteal veins are patent without thrombus. Normal Doppler waveforms. Normal compressibility and/or augmentation response. Superficial veins: Greater saphenous veins at the saphenofemoral junctions are patent bilaterally without thrombus. Soft tissues: Unremarkable. US/CV venous duplex [facility] [id number] IMPRESSION: No evidence of deep vein thrombosis.
[2024-11-11] MEDS: ipratropium-albuterol 3 mL Neb INHALATION (08:47)
[2024-11-11] MEDS: tamsulosin 0.4 mg Capsule PO (08:55)
[2024-11-11] MEDS: metoprolol succinate ER (24 HR) 50 mg Tablet PO (08:55)
[2024-11-11] MEDS: sennosides-docusate Tablet 1 TAB PO (08:55)
--- NOTE | 2024-11-11 11:52 | PM.CONSULT ---
Providers/Reason For Consult Consulting Physician/Specialty*: TIARA Sosa MD/cardiology Reason for Consult*: Patient with the frequent ventricular arrhythmia Requesting Physician: Dr. Reno Attending Physician: Adam Reno Primary Care Provider: Rupesh Demarco MD History of Present Illness History of Present Illness Tiff Prater is a 74 year old male with a history of ventricular arrhythmia, he is admitted to hospital through the emergency room where he presented with complaints of dizziness/weakness and relatively low blood pressure. He was found to have frequent PVCs in the form of bigeminy on the monitor. Cardiology consult is requested for further cardiac evaluation recommendations. This patient is known to have ventricular arrhythmia/ventricular tachycardia .The initial episode occurred in 1999, requiring hospitalization and angiographic evaluation, which revealed no coronary artery blockages. Subsequent episodes were recorded in 2001, 2002, 2004, and then a more recent episode in 2018, which lasted approximately [address], resolving upon arrival at the emergency room. Episodes have reportedly led to symptoms of chest pain and lightheadedness, though syncope was not experienced. The patient has undergone three cardiac catheterizations, the latest in 2014, which verified no occlusive coronary disease. Since 2014, three chemical stress tests were performed and were essentially unremarkable. There has been no record of antiarrhythmic drugs or ablation therapy for the ventricular tachycardia. Comorbid conditions include essential hypertension, type 2 diabetes mellitus for over 15 years, hyperlipidemia, and severe obstructive sleep apnea managed with continuous positive airway pressure at maximal settings/ COPD. The patient has also experienced congestive heart failure, characterized by ankle swelling, managed with diuretics, including furosemide and spironolactone. Previous echocardiographic evaluation in 2018 revealed cardiac enlargement but not ejection fraction details. 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 Comprehensive cardiac evaluations or follow-ups post-2019 have not been noted. The most recent echocardiogram in September of this year-09/25/2024 revealed the following Normal left ventricular size and systolic function, EF 65%.no regional wall motion abnormalities. Grade I/IV diastolic dysfunction (abnormal relaxation filling pattern), normal to mildly elevated filling pressures. Mild left ventricular hypertrophy. Trace tricuspid valve regurgitation. Estimated pulmonary artery peak systolic pressure probably within normal limits There is no pericardial effusion. Technically difficult study because of the poor ultrasonic window. According the patient, his blood pressure has been running low in the 90s and low 100s for the last couple of months. He feels very weak and tired with this low blood pressures. However according the patient, he continues to take the medications as prescribed. Review of Systems Narrative: CONSTITUTIONAL: No fever or chills. EYES: No blurring of vision or other visual disturbances lately. ENT: No hoarseness of voice, auditory disturbances or sore throat. CARDIOVASCULAR: As mentioned above. RESPIRATORY: No significant cough. GASTROINTESTINAL: No hematemesis or melena. GENITOURINARY: No dysuria or hematuria. INTEGUMENTARY: No skin rashes or history of skin cancer. NEURO: Intermittent episodes of dizziness/weakness PSYCHIATRIC: No history of psychosis or major depression. HEMATOLOGIC: No bleeding disorders or significant anemia. ENDOCRINE: No history of polyuria or polydipsia. MUSCULOSKELETAL: No recent joint pain or swelling. ALLERGY/IMMUNOLOGY: As mentioned above. Medications/Allergies Home Medications Medication Instructions Recorded Confirmed Last Taken Type acetaminophen 650 mg 650 mg PO Q8H 06/18/24 11/10/24 11/10/24 08:00 History tablet,extended release (Tylenol Arthritis Pain) adalimumab 40 mg/0.8 mL 40 mg (0.8 mL) SUBCUT Q14D #2 ea 06/18/24 11/10/24 Unknown Rx subcutaneous syringe kit (Humira) albuterol sulfate 2.5 mg/3 mL 2.5 mg inhalation Q6H PRN 06/18/24 11/10/24 Unknown History (0.083 %) solution for nebulization shortness of breath or wheezing cetirizine 10 mg tablet 10 mg PO DAILY 06/18/24 11/10/24 11/10/24 08:00 History docusate sodium 100 mg capsule 100 mg PO DAILY PRN Constipation 06/18/24 11/10/24 Unknown History (Colace) ezetimibe 10 mg tablet 10 mg PO DAILY 06/18/24 11/10/24 11/10/24 08:00 History folic acid 1 mg tablet 1 mg PO DAILY 06/18/24 11/10/24 11/10/24 08:00 History furosemide 40 mg tablet 80 mg PO DAILY 06/18/24 11/10/24 11/10/24 08:00 History gabapentin 300 mg capsule 300 mg PO DAILY 06/18/24 11/10/24 11/10/24 08:00 History insulin lispro 100 unit/mL 140 unit continuous subcutaneous 06/18/24 11/10/24 11/10/24 08:00 History subcutaneous solution (Humalog infusion DAILY U-100 Insulin) isosorbide mononitrate 30 mg 30 mg PO DAILY 06/18/24 11/10/24 11/10/24 08:00 History tablet,extended release 24 hr levothyroxine 200 mcg tablet 200 mcg PO DAILY 06/18/24 11/10/24 11/10/24 06:00 History methotrexate sodium 2.5 mg tablet 20 mg PO .every week 06/18/24 11/10/24 11/09/24 History metoclopramide HCl 10 mg tablet 10 mg PO DAILY 06/18/24 11/10/24 11/10/24 08:00 History multivitamin with minerals-folic 1 tab PO DAILY 06/18/24 11/10/24 11/10/24 08:00 History acid 0.4 mg tablet prednisolone acetate 1 % eye 1 drp ophthalmic (eye) DAILY 06/18/24 11/10/24 11/10/24 08:00 History drops,suspension spironolactone 100 mg tablet 100 mg PO DAILY 06/18/24 11/10/24 11/10/24 08:00 History CPAP Mask, tubing and all other #1 ea 06/20/24 11/10/24 Unknown Rx supplies for CPAP metoprolol succinate 50 mg 50 mg PO DAILY #90 tabs 09/03/24 11/10/24 11/10/24 08:00 Rx tablet,extended release 24 hr Bipap, mask and supplies #1 ea 09/19/24 11/10/24 Unknown Rx ropinirole 3 mg tablet 3 mg PO .qhs #90 tabs 09/19/24 11/10/24 11/09/24 Rx semaglutide 0.25 mg or 0.5 mg (2 0.5 mg SUBCUT .Once a week 09/19/24 11/10/24 11/09/24 History mg/3 mL) subcutaneous pen injector (Ozempic) tamsulosin 0.4 mg capsule 0.4 mg PO DAILY #30 caps 09/19/24 11/10/24 11/10/24 08:00 Rx bupropion HCl 300 mg 24 hr tablet, 300 mg PO DAILY #90 tabs 11/05/24 11/10/24 11/10/24 08:00 Rx extended release omeprazole 20 mg capsule,delayed 20 mg PO DAILY #90 caps 11/05/24 11/10/24 11/10/24 08:00 Rx release insulin lispro 100 unit/mL 15 unit SUBCUT TID PRN blood sugar 11/10/24 11/10/24 Unknown History subcutaneous cartridge (Humalog U-100 Insulin) Allergies Allergy/AdvReac Type Severity Reaction Status Date / Time amoxicillin Allergy Severe anaphylaxis Verified 11/10/24 18:11 sulfamethoxazole Allergy Severe skin Verified 11/10/24 18:11 [From Bactrim] blisters trimethoprim [From Bactrim] Allergy Severe skin Verified 11/10/24 18:11 blisters meloxicam Allergy Intermediate swelling Verified 11/10/24 18:11 chlorhexadine Allergy Severe rash Uncoded 09/03/24 10:51 Current Medications Generic Name Dose Route Start Last Admin Trade Name Freq PRN Reason Stop Dose Admin Albuterol/Ipratropium 3 ml 11/10/24 19:54 11/11/24 08:47 Ipratropium-Albuterol 3 Ml Neb INHALATION 3 ml Q6H PRN Administration SHORTNESS OF BREATH Enoxaparin Sodium 40 mg 11/10/24 20:00 11/10/24 22:26 Enoxaparin 40 Mg/0.4 Ml Syringe SUBCUT 40 mg Q24H JUAN CARLOS Administration Insulin Human Lispro 0 unit 11/11/24 08:00 11/11/24 08:54 Insulin Lispro 100 Unit/1 Ml SUBCUT Not Given TIDWM [facility] Protocol Levothyroxine Sodium 200 mcg 11/11/24 06:30 11/11/24 05:17 Levothyroxine 200 Mcg Tablet PO 200 mcg 0630 JUAN CARLOS Administration Metoprolol Succinate 50 mg 11/11/24 09:00 11/11/24 08:55 Metoprolol Succinate Er (24 Hr) 50 Mg Tablet PO 50 mg DAILY [facility] Administration Senna/Docusate Sodium 1 tab 11/11/24 09:00 11/11/24 08:55 Sennosides-Docusate Tablet PO 1 tab DAILY [facility] Administration Tamsulosin HCl 0.4 mg 11/11/24 09:00 11/11/24 08:55 Tamsulosin 0.4 Mg Capsule PO 0.4 mg DAILY JUAN CARLOS Administration PFSH Acute PFSH: Medical History NATIVIDAD (obstructive sleep apnea) Uses BiPAP Iron deficiency anemia Hx of bacterial pneumonia History of cystic kidney disease Seasonal allergies GERD (gastroesophageal reflux disease) Ventricular tachycardia Major depression Polymyalgia rheumatica Graves disease Laryngopharyngeal reflux Restless leg syndrome Congestive heart failure follows with cardiology Rheumatoid arthritis follows with rheumatology Vitamin D deficiency Hyperlipidemia Essential hypertension Type 2 diabetes mellitus with complication Surgical History History of bariatric surgery History of lumbar fusion Hx of fusion of cervical spine Hx of cataract extraction left and right eye Hx of cholecystectomy History of liver biopsy benign cysts Hx of eye surgery right eye Hx of thyroidectomy Hx of arthroscopy of right knee Hx of arthroscopy of left knee Hx of repair of right rotator cuff History of left shoulder replacement History of carpal tunnel surgery of left wrist Hx of colonoscopy with polypectomy 2023 Hx of right knee surgery History of tonsillectomy and adenoidectomy Hx of cornea transplant Family History Father Congestive heart failure (CHF) COPD (chronic obstructive pulmonary disease) Other Breast cancer Diabetes Heart disease Hyperlipidemia Hypertension Lung cancer Stroke Thyroid cancer Social History Smoking and tobacco/nicotine status: never used tobacco/nicotine Second hand smoke exposure: Yes (father) Alcohol intake: current Alcohol intake frequency: holidays/special occasions only Substance/Drug Use: never Household members: spouse Marital status: Highest education level completed: Master's Degree Current occupational status: retired 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 Not in any acute distress. HEENT: No significant pallor, icterus or lymphadenopathy.Oral cavity: There are no mucous membrane lesions. NECK: Trachea appears to be central. No masses noted. No JVD or thyromegaly appreciated. RESPIRATORY: Chest is symmetrical. No intercostals muscle retraction or any accessory muscle activation. There is no chest wall tenderness. Breath sounds are heard bilaterally. No rales or rhonchi heard. No evidence of any consolidation. BREASTS: Deferred. HEART: The heart sounds are normal. No S3 or S4. No significant murmurs. No pericardial rub ABDOMEN: No vessel pulsations or distention. No tenderness. No organomegaly appreciated. Bowel sounds are normally heard. : Deferred. RECTAL: Deferred. LYMPHATIC: No lymphadenopathy noted in the neck. EXTREMITIES: No edema or cyanosis. No clubbing. MUSCULOSKELETAL: No acute joint deformities or swelling SKIN: There are no significant rashes or ecchymosis NEUROPSYCHIATRIC: The patient is alert and oriented x3. Appears to be in a good mood. No tremors or rigidity noted. Data 11/10/24 19:18 11/11/24 01:23 Other data: The EKG showed a sinus rhythm with a frequent PVCs. Right bundle branch block pattern. Telemetry shows sinus rhythm with occasional episodes of ventricular bigeminy A&P Assessment and plan (1) Ventricular arrhythmia: Patient was found to have frequent PVCs in the form of bigeminy. Patient apparently has a history of a chronic arrhythmia with episodes of ventricular tachycardia. MAR Mag-Tab SR 85 mg p.o. twice daily. (2) Low blood pressure reading: Exact etiology is not clear. The isosorbide and spironolactone are on hold. May continue on the metoprolol for the time being. (3) Obesity: Qualifiers: Body mass index: BMI 38.0-38.9 Obesity classification: adult class 2 (BMI 35 - 39.9) Obesity type: due to excess calories Serious obesity comorbidity presence: with serious comorbidity Qualified Code(s): E66.812 - Obesity, class 2; E66.01 - Morbid (severe) obesity due to excess calories; Z68.38 - Body mass index [BMI] 38.0-38.9, adult (4) Bradycardia, severe sinus: Patient seems to have no symptomatic bradycardia at this point. Some of the symptoms could be related to the ventricular arrhythmia (5) Congestive heart failure: Clinically compensated. The LV ejection fraction was within normal limits by echocardiogram on 09/25/2024. Qualifiers: Heart failure chronicity: unspecified Heart failure type: unspecified Qualified Code(s): I50.9 - Heart failure, unspecified (6) Hyperlipidemia: May continue the current medications. Qualifiers: Hyperlipidemia type: mixed hyperlipidemia Qualified Code(s): E78.2 - Mixed hyperlipidemia (7) Elevated d-dimer: Etiology is not known. Patient is being evaluated for the DVT/pulm embolism Plan Based on the clinical progress and the results of the above, further recommendations will be made. Thank you for the opportunity to evaluate this patient and make these recommendations Coding Level of Care Code 27528 Diagnoses Ventricular arrhythmia I49.9 Low blood pressure reading R03.1 Class 2 severe obesity due to excess calories with serious comorbidity and body mass index (BMI) of 38.0 to 38.9 in adult E66.812; E66.01; Z68.38 Body mass index: BMI 38.0-38.9 Obesity classification: adult class 2 (BMI 35 - 39.9) Obesity type: due to excess calories Serious obesity comorbidity presence: with serious comorbidity Bradycardia, severe sinus R00.1 Congestive heart failure, unspecified HF chronicity, unspecified heart failure type I50.9 Heart failure chronicity: unspecified Heart failure type: unspecified Mixed hyperlipidemia E78.2 Hyperlipidemia type: mixed hyperlipidemia Elevated d-dimer R79.89
[2024-11-11 11:57] LABS: Glucose Point of Care 188 mg/dL (70-110)
--- NOTE | 2024-11-11 12:59 | CTR_ITS ---
PROCEDURE INFORMATION: Exam: CTA Chest With Contrast Exam date and time: 11/11/2024 1:22 PM Age: 74 years old Clinical indication: Abnormal findings; Abnormal diagnostic tests; Elevated d-dimer; Additional info: Syncope, elev ddimer, assess for pe TECHNIQUE: Imaging protocol: Computed tomographic angiography of the chest with contrast. Exam focused on the arteries. 3D rendering (Not supervised by radiologist): MIP and/or 3D reconstructed images were created by the technologist. Radiation optimization: All CT scans at this facility use at least one of these dose optimization techniques: automated exposure control; mA and/or kV adjustment per patient size (includes targeted exams where dose is matched to clinical indication); or iterative reconstruction. Contrast material: OMNI 350; Contrast volume: 69 ml; Contrast route: INTRAVENOUS (IV); COMPARISON: CR (CHEST, ) 11/10/2024 7:22 PM RADIATION DOSE METRICS: Total DLP (mGy-cm): 573.66 FINDINGS: Pulmonary arteries: Acute pulmonary embolism in right main pulmonary artery extending into right upper lobe lobar branch and right middle lobe and lower lobe lobar and segmental branches. Acute pulmonary embolism in left lower lobe segmental branches. Aorta: Dense coronary artery calcifications. No aortic aneurysm. No aortic dissection. Lungs: Low lung volume. Minimal nonspecific mosaic attenuation ground-glass densities in lower lobes posteriorly. No consolidation. No masses. Pleural spaces: No pneumothorax. No pleural effusion. Heart: RV/LV ratio is 1.0. Cardiomegaly. No pericardial effusion. Lymph nodes: No enlarged lymph nodes. Bones/joints: Left shoulder arthroplasty noted. Moderate spondylotic change at T7-8 level noted. No acute fracture. Soft tissues: Cholecystectomy noted. Air within the biliary tree noted. Surgical clips surrounding stomach noted. Cortical cyst in the visualized left kidney midpole posteriorly suspected, not completely imaged. CT/CT angio chest PE protcl [id number] IMPRESSION: Bilateral acute pulmonary embolism.
--- NOTE | 2024-11-11 13:28 | P.PN_ITS ---
Vitals/I&O/Wt Last Vital Signs Temp 97.7 F 11/11/24 11:36 Pulse 71 11/11/24 11:36 Resp 15 11/11/24 11:36 BP 137/62 11/11/24 11:36 Pulse Ox 93 11/11/24 11:36 O2 Del Method Room Air 11/11/24 11:36 11/10/24 11/11/24 11/11/24 22:59 06:59 14:59 Intake Total 0 / 0 600 / 600 Balance 0 / 0 600 / 600 Weight last 48 hrs Weight 136.214 kg Weight 132.857 kg Weight 127.006 kg Physical Exam 2 Const: COMMON NORMALS: patient oriented x3 and alert GENERAL APPEARANCE: c ooperative NUTRITIONAL APPEARANCE: obese ORIENTATION/CONSCIOUSNESS: Yes awake HENMT: COMMON NORMALS: oropharynx normal OTHER: Tiny bruise inf L orbit Neck/C-Spine: COMMON NORMALS: no JVD Resp: COMMON NORMALS: normal respiratory effort and clear to auscultation bilaterally AUSCULTATION: clear to auscultation bilaterally Cardio: COMMON NORMALS: no JVD, regular rhythm, S1 normal heart sound present, S2 normal heart sound present and No murmurs present (Cardio) RHYTHM: regular rhythm HEART SOUNDS: S1 normal heart sound present and S2 normal heart sound present GI: COMMON NORMALS: Normal to inspection, nondistended, normoactive bowel sounds present, Soft to palpation and non-tender PALPATION: Yes Soft to palpation Extremity: COMMON NORMALS: no joint enlargement NARRATIVE EXTREMITY EXAM: Bruising L calf GENERAL: Yes edema (Trace) Neuro: COMMON NORMALS: patient oriented x3 and moves all extremities S ENSORIUM/ORIENTATION: Yes alert Skin: COMMON NORMALS: no rashes or lesions noted GENERAL SKIN EXAM: no rashes or lesions noted Data 11/10/24 19:18 11/11/24 01:23 A&P Assessment and plan (1) Polymyalgia rheumatica: (2) Rheumatoid arthritis: (3) Restless leg syndrome: (4) NATIVIDAD (obstructive sleep apnea): (5) Ventricular tachycardia: (6) Heart murmur, systolic: (7) Congestive heart failure: Qualifiers: Heart failure type: unspecified Heart failure chronicity: unspecified Qualified Code(s): I50.9 - Heart failure, unspecified (8) Essential hypertension: (9) Bigeminy: (10) Pre-syncope: Plan Symptomatic bigeminy Monitor on Trelegy. Continue metoprolol. Discussed with transitional care manager. Appreciate recommendation. Cardiology significantly starting him on magnesium tablet. Reassess. Pending additional limited TTE. Reviewed vitals, CBC, D-dimer, CMP. NT proBNP. Troponins. Magnesium. TSH. UA. D-dimer is elevated. Requested lower extremity duplex. Discussed with him also regarding obtaining CTA, discussed risk of contrast reaction, risk of contrast- induced nephropathy. Syncope and collapse Continue metoprolol. Imdur has been on hold. Lasix, spironolactone has been held for now. Patient has kept taking his antihypertensive regimen despite low blood pressure at home No recent syncopal event No active chest pain Hold antihypertensive regimen Adjust antihypertensive regimen before discharge History of inflammatory arthritis: Hold methotrexate for now History of sleep apnea uses BiPAP at home BPH: Continue tamsulosin Hypothyroid: Continue levothyroxine Type II diabetic: He has an insulin pump which he manages, has not had any issues. I reviewed his basal and bolus insulin. He is agreeable to continue POC Accu-Cheks to compare to the pump sensor readings. Full code DVT prophylaxis Lovenox Attestations 2 Medical Necessity Statement*: Continue hospitalization for assessment management of syncope and collapse in a gentleman with history of bigeminy, ventricular tachycardia, assessment for possible VTE with abnormal D-dimer. and High MDM includes amount and/or complexity of data reviewed/ordered [ resulted lab(s)/test(s), ordered lab(s)/test(s) and other healthcare professional discussion] and described risk of complication, morbidity or mortality of management as documented Diagnoses Polymyalgia rheumatica M35.3 Rheumatoid arthritis M06.9 Restless leg syndrome G25.81 NATIVIDAD (obstructive sleep apnea) G47.33 Ventricular tachycardia I47.20 Heart murmur, systolic R01.1 Congestive heart failure, unspecified HF chronicity, unspecified heart failure type I50.9 Heart failure type: unspecified Heart failure chronicity: unspecified Essential hypertension I10 Bigeminy I49.8 Pre-syncope R55
[2024-11-11] MEDS: iohexol 350 mg/mL 500 mL Btl (per mL) IV (13:31)
[2024-11-11] MEDS: enoxaparin 150 mg/mL Syringe 140 MG SUBCUT (15:00)
[2024-11-11 16:58] LABS: Glucose Point of Care 126 mg/dL (70-110)
[2024-11-11] MEDS: magnesium lactate 84 mg Tablet PO (17:30)
--- NOTE | 2024-11-11 19:56 | USCV_ITS ---
Tiff Prater Age: 74 Gender: M : 1950 Exam Date: 11/11/2024 14:10 Ordering Phys: Ratna Bailon MD Technologist: Jason Arrieta Exam Location: [facility] – [place], [place] Indication: syncope BP: 137 / 62 HR: Rhythm: Sinus Technical Quality: Adequate MEASUREMENTS (Male / Female) Normal Values 2D ECHO LV Diastolic Diameter PLAX 3.5 cm 4.2 - 5.9 / 3.9 - 5.3 cm IVS Diastolic Thickness 1.1 cm 0.6 - 1.0 / 0.6 - 0.9 cm IVS Systolic Thickness 1.3 cm LVPW Diastolic Thickness 1.8 cm 0.6 - 1.0 / 0.6 - 0.9 cm LVPW Systolic Thickness 2.4 cm LVOT Diameter 2.0 cm LV Ejection Fraction 2D Teich 86.9 % LV Ejection Fraction MOD 4C 72.0 % LV Ejection Fraction MOD 2C 71.7 % LV Ejection Fraction 2C AL 72.5 % LA Diameter 3.5 cm RA Systolic Volume 4C AL 61.4 ml RA Systolic Volume 4C MOD 60.6 ml LA Sys Volume AL 53.2 cm cubed LA Sys Volume Index AL 20.2 cm cubed/m squared Aorta at Sinotubular Diameter 2.4 cm IVC Diameter 2.6 cm M-MODE LA Ao Ratio MM 1.5 AV Cusp Separation MM 1.8 cm FINDINGS Left Ventricle Normal cardia chamber sizes with normal ejection fraction of 72%. No gross wall motion abnormalities. Right Ventricle Normal right ventricular size and systolic function. Right Atrium The right atrium is normal in size. Left Atrium The left atrium is normal in size. Mitral Valve No gross morphologic abnormalities Aortic Valve No gross morphologic abnormalities Tricuspid Valve No gross morphologic abnormalities Pulmonic Valve No gross abnormalities noted Pericardium Normal pericardium without effusion. Aorta Normal ascending aorta dimension. IVC Inferior vena cava not visualized. CONCLUSIONS Normal cardia chamber sizes with normal ejection fraction of 72%. No gross wall motion abnormalities. Mild concentric left ventricular hypertrophy Normal cardiac chamber sizes. No intracardiac masses. No pericardial effusion. Dr Ranjit Sosa MD FAC (Electronically Signed) Final Date: 11 November 2024 17:32 S
[2024-11-11 20:44] LABS: Glucose Point of Care 148 mg/dL (70-110)
[2024-11-12] VITALS (7 sets, daily range): BP systolic 116–133; BP diastolic 65–75; PULSE 52–98; RESP 16–18; TEMP 36.6–36.8; O2SAT 94–97
[2024-11-12] MEDS: enoxaparin 150 mg/mL Syringe 140 MG SUBCUT (01:48)
[2024-11-12] MEDS: levothyroxine 200 mcg Tablet PO (05:24)
[2024-11-12 06:15] LABS: Basophils % 0.4 %; Eosinophils # 0.3 10^3/uL (0.0-0.8); Eosinophils % 4.3 %; Hematocrit 40.4 % (37-53); Lymphocytes # 2.8 10^3/uL (0.8-4.8); Lymphocytes % 42.3 %; Mean Corpuscular HGB Conc 32.2 g/dL (30-55); Mean Corpuscular Hemoglobin 32.3 pg (27-33); Mean Corpuscular Volume 100.2 fl (82-101); Mean Platelet Volume 9.8 fL (7.4-10.4); Monocytes # 0.5 10^3/uL (0.2-0.9); Neutrophils # 3.06 10^3/uL (1.8-7.7); Neutrophils % 45.6 %; Nucleated Red Blood Cells % 0 %; Platelet Count 177 10^3/cmm (157-399); Red Blood Count 4.03 10^6/uL (3.85-5.65); Red Cell Distribution Width 13.5 % (12.1-15.1); White Blood Count 6.72 10^3/uL (3.29-11.43)
[2024-11-12 06:25] LABS: Glucose Point of Care 98 mg/dL (70-110)
[2024-11-12 06:38] LABS: Anion Gap 17.2 (5-19); Blood Urea Nitrogen 15 mg/dL (8-23); Carbon Dioxide 23 mmol/L (22-29); Chloride 101 mmol/L (98-107); Creatinine Clr Calc Pharmacy 86.3695; Glucose 92 mg/dL (65-115); Osmolality Calculated 284 mOsm/kg (285-295); Potassium 4.2 mmol/L (3.5-5.1); Sodium 137 mmol/L (136-145)
[2024-11-12] MEDS: sennosides-docusate Tablet 1 TAB PO (08:25)
[2024-11-12] MEDS: tamsulosin 0.4 mg Capsule PO (08:25)
[2024-11-12] MEDS: metoprolol succinate ER (24 HR) 50 mg Tablet PO (08:25)
[2024-11-12] MEDS: magnesium lactate 84 mg Tablet PO (08:25)
--- NOTE | 2024-11-12 08:55 | PM.PN ---
Subjective Subjective: The patient was found to have features of acute pulmonary embolism bilaterally. He was started on oral anticoagulation. He seems to be doing okay with no unusual shortness of breath. Oxygen saturation is 95% room air. No evidence of DVT. Medications: Medication Review Details: Current Medications Acetaminophen (Acetaminophen 500 Mg Tablet) 500 mg PO Q4H PRN PRN Reason: fever Albuterol/Ipratropium (Ipratropium-Albuterol 3 Ml Neb) 3 ml INHALATION Q6H PRN PRN Reason: SHORTNESS OF BREATH Last Admin: 11/11/24 08:47 Dose: 3 ml Enoxaparin Sodium (Enoxaparin 150 Mg/Ml Syringe) 140 mg SUBCUT Q12H [facility] Last Admin: 11/12/24 01:48 Dose: 140 mg Glucagon (Glucagon 1 Mg/Ml Kit 1 Ml) 1 mg IM ONCE PRN; Protocol PRN Reason: Adult Acute Hypoglycemia Nursing Prot. Dextrose (D5w) 500 mls @ 0 mls/hr IV ONCE PRN; Protocol PRN Reason: Adult Acute Hypoglycemia Prot Dextrose (D10w) 125 mls @ 750 mls/hr IV PRN PRN; Protocol PRN Reason: Adult Acute Hypoglycemia Nursing Protocol Dextrose (D10w) 250 mls @ 1,000 mls/hr IV PRN PRN; Protocol PRN Reason: Adult Acute Hypoglycemia Nursing Protocol Insulin Human Lispro (Insulin Lispro 100 Unit/1 Ml) 0 unit SUBCUT TIDWM [facility]; Protocol Last Admin: 11/11/24 13:05 Dose: Not Given Levothyroxine Sodium (Levothyroxine 200 Mcg Tablet) 200 mcg PO 0630 [facility] Last Admin: 11/12/24 05:24 Dose: 200 mcg Magnesium Lactate (Magnesium Lactate 84 Mg Tablet) 84 mg PO BID [facility] Last Admin: 11/12/24 08:25 Dose: 84 mg Metoprolol Succinate (Metoprolol Succinate Er (24 Hr) 50 Mg Tablet) 50 mg PO DAILY [facility] Last Admin: 11/12/24 08:25 Dose: 50 mg Ondansetron HCl (Ondansetron 2 Mg/Ml Sdv 2 Ml) 4 mg IVP Q6H PRN PRN Reason: NAUSEA AND VOMITING Senna/Docusate Sodium (Sennosides-Docusate Tablet) 1 tab PO DAILY [facility] Last Admin: 11/12/24 08:25 Dose: 1 tab Tamsulosin HCl (Tamsulosin 0.4 Mg Capsule) 0.4 mg PO DAILY [facility] Last Admin: 11/12/24 08:25 Dose: 0.4 mg Vitals/I&O/Wt Last Vital Signs Temp 98.3 F 11/12/24 07:51 Pulse 52 L 11/12/24 07:51 Resp 17 11/12/24 07:51 BP 133/75 11/12/24 07:51 Pulse Ox 94 11/12/24 07:51 O2 Del Method CPAP 11/12/24 07:51 11/11/24 11/12/24 11/12/24 22:59 06:59 14:59 Intake Total 240 / 840 400 / 1240 Balance 240 / 840 400 / 1240 Weight last 48 hrs Weight 301 lb 1.6 oz Weight 300 lb 4.8 oz Weight 292 lb 14.4 oz Weight 280 lb Physical Exam Narrative: GENERAL: The patient is alert and oriented times three. Not in any acute distress. HEENT: No significant pallor, icterus or lymphadenopathy.Oral cavity: There are no mucous membrane lesions. NECK: Trachea appears to be central. No masses noted. No JVD or thyromegaly appreciated. RESPIRATORY: Chest is symmetrical. No intercostals muscle retraction or any accessory muscle activation. There is no chest wall tenderness. Breath sounds are heard bilaterally. No rales or rhonchi heard. No evidence of any consolidation. BREASTS: Deferred. HEART: The heart sounds are normal. No S3 or S4. No significant murmurs. No pericardial rub ABDOMEN: No vessel pulsations or distention. No tenderness. No organomegaly appreciated. Bowel sounds are normally heard. : Deferred. RECTAL: Deferred. LYMPHATIC: No lymphadenopathy noted in the neck. EXTREMITIES: No edema or cyanosis. No clubbing. MUSCULOSKELETAL: No acute joint deformities or swelling SKIN: There are no significant rashes or ecchymosis NEUROPSYCHIATRIC: The patient is alert and oriented x3. Appears to be in a good mood. No tremors or rigidity noted. Data 11/12/24 05:46 11/12/24 05:46 Other Labs: Laboratory Last Values WBC 6.72 10^3/uL (3.29-11.43) 11/12/24 05:46 RBC 4.03 10^6/uL (3.85-5.65) 11/12/24 05:46 Hgb 13.00 g/dL (11.27-16.99) 11/12/24 05:46 Hct 40.4 % (37-53) 11/12/24 05:46 MCV 100.2 fl (82-101) 11/12/24 05:46 MCH 32.3 pg (27-33) 11/12/24 05:46 MCHC 32.2 g/dL (30-55) 11/12/24 05:46 RDW 13.5 % (12.1-15.1) 11/12/24 05:46 Plt Count 177 10^3/cmm (157-399) 11/12/24 05:46 MPV 9.8 fL (7.4-10.4) 11/12/24 05:46 Neut % (Auto) 45.6 % 11/12/24 05:46 Lymph % (Auto) 42.3 % 11/12/24 05:46 Hayes % (Auto) 7.0 % 11/12/24 05:46 Eos % (Auto) 4.3 % 11/12/24 05:46 Baso % (Auto) 0.4 % 11/12/24 05:46 Neut # (Auto) 3.06 10^3/uL (1.8-7.7) 11/12/24 05:46 Lymph # (Auto) 2.8 10^3/uL (0.8-4.8) 11/12/24 05:46 Hayes # (Auto) 0.5 10^3/uL (0.2-0.9) 11/12/24 05:46 Eos # (Auto) 0.3 10^3/uL (0.0-0.8) 11/12/24 05:46 Baso # (Auto) 0.0 10^3/uL (0.0-0.1) 11/12/24 05:46 Nucleated RBC % (auto) 0 % 11/12/24 05:46 Nucleated RBCs # 0.0 /100WBC 11/12/24 05:46 PT 13.10 SECONDS (12.1-14.9) 11/10/24 19:18 INR 0.92 (0.8-1.2) 11/10/24 19:18 APTT 29.4 SECONDS (23.9-36.7) 11/10/24 19:18 D-Dimer 5.65 ug/mLFEU (0-0.59) H 11/10/24 19:18 Sodium 137 mmol/L (136-145) 11/12/24 05:46 Potassium 4.2 mmol/L (3.5-5.1) 11/12/24 05:46 Chloride 101 mmol/L (98-107) 11/12/24 05:46 Carbon Dioxide 23 mmol/L (22-29) 11/12/24 05:46 Anion Gap 17.2 (5-19) 11/12/24 05:46 BUN 15 mg/dL (8-23) 11/12/24 05:46 Creatinine 1.0 mg/dL (0.7-1.2) 11/12/24 05:46 GFR Calculation Not Reportable 11/12/24 05:46 Glucose 92 mg/dL (65-115) 11/12/24 05:46 POC Glucose 105 mg/dL (70-110) 11/12/24 11:18 Calculated Osmolality 284 mOsm/kg (285-295) L 11/12/24 05:46 Calcium 9.0 mg/dL (8.5-10.5) 11/12/24 05:46 Phosphorus 3.8 mg/dL (2.5-4.5) 11/10/24 19:18 Magnesium 2.1 mg/dL (1.7-2.3) 11/11/24 01:23 Total Bilirubin 0.2 mg/dL (0.15-1.2) 11/10/24 19:18 AST 20 U/L (0-40) 11/10/24 19:18 ALT 17 U/L (0-41) 11/10/24 19:18 Alkaline Phosphatase 86 U/L (40-130) 11/10/24 19:18 Troponin T Baseline 19 ng/L (0-15) H 11/10/24 19:18 Troponin T 120 Minute 17.46 ng/L (0-15) H 11/10/24 20:59 Delta Troponin T -1.54 ABS# (0-10) L 11/10/24 20:59 Troponin T Hi Sens 6Hr 14.90 ng/L (0-15) 11/11/24 01:23 Troponin T Hi Sens 6Hr Delta -4.10 ng/L (0-12) L 11/11/24 01:23 C-React Prot High Sens 0.700 mg/dL (0.0-0.3) H 11/10/24 19:18 NT-Pro-B Natriuret Pep 378 pg/mL (0-450) 11/10/24 19:18 Total Protein 6.2 g/dL (6.6-8.7) L 11/10/24 19:18 Albumin 4.0 g/dL (3.5-5.2) 11/10/24 19:18 Globulin 2.2 g/dL (1.3-4.6) 11/10/24 19:18 TSH 3.64 uIU/mL (0.27-4.20) 11/10/24 19:18 Urine Color Yellow (Yellow) 11/11/24 06:45 Urine Appearance Clear (CLEAR) 11/11/24 06:45 Urine pH 5.5 (5-7) 11/11/24 06:45 Ur Specific [place] 1.018 (1.005-1.030) 11/11/24 06:45 Urine Protein Negative (Negative) 11/11/24 06:45 Urine Glucose (UA) Negative (Normal) 11/11/24 06:45 Urine Ketones Negative (Negative) 11/11/24 06:45 Urine Blood Negative (Negative) 11/11/24 06:45 Urine Nitrate Negative (Negative) 11/11/24 06:45 Urine Bilirubin Negative (Negative) 11/11/24 06:45 Urine Urobilinogen 0.2 mg/dL (Negative) 11/11/24 06:45 Ur Leukocyte Esterase Negative (Negative) 11/11/24 06:45 Urine RBC 0-2 /hpf (0-2) 11/11/24 06:45 Urine WBC 0-5 /hpf (0-5) 11/11/24 06:45 Ur Squamous Epith Cells 0-5 /hpf (0-5) 11/11/24 06:45 Amorphous Sediment Not Reportable 11/11/24 06:45 Urine Bacteria None seen /hpf (NONE) 11/11/24 06:45 Hyaline Casts 0-4 /lpf H 11/11/24 06:45 A&P Assessment and plan (1) Acute pulmonary embolism: Qualifiers: Pulmonary embolism type: unspecified Acute cor pulmonale presence: without acute cor pulmonale Qualified Code(s): I26.99 - Other pulmonary embolism without acute cor pulmonale (2) Ventricular arrhythmia: Patient was found to have frequent PVCs in the form of bigeminy. Patient apparently has a history of a chronic arrhythmia with episodes of ventricular tachycardia. MAR Mag-Tab SR 85 mg p.o. twice daily. Symptoms are less PVCs on the monitor at this time. (3) Low blood pressure reading: This could be related to the pulm embolism. The blood pressure seems to be improving at this time. (4) Bradycardia, severe sinus: Patient seems to have no symptomatic bradycardia at this point. Currently seems to have improved (5) Congestive heart failure: Clinically compensated. The LV ejection fraction was within normal limits by echocardiogram on 09/25/2024. Qualifiers: Heart failure chronicity: unspecified Heart failure type: unspecified Qualified Code(s): I50.9 - Heart failure, unspecified (6) Hyperlipidemia: May continue the current medications. Qualifiers: Hyperlipidemia type: mixed hyperlipidemia Qualified Code(s): E78.2 - Mixed hyperlipidemia (7) Obesity: Importance of lifestyle modification was discussed with the patient Qualifiers: Body mass index: BMI 38.0-38.9 Obesity classification: adult class 2 (BMI 35 - 39.9) Obesity type: due to excess calories Serious obesity comorbidity presence: with serious comorbidity Qualified Code(s): E66.812 - Obesity, class 2; E66.01 - Morbid (severe) obesity due to excess calories; Z68.38 - Body mass index [BMI] 38.0-38.9, adult Plan Cardiac christensen, the patient seems to be fairly stable. May continue the current management. Attestations Medical Necessity Statement*: Disposition as per the primary Coding Level of Care Code 47514 Diagnoses Acute pulmonary embolism without acute cor pulmonale, unspecified pulmonary embolism type I26.99 Pulmonary embolism type: unspecified Acute cor pulmonale presence: without acute cor pulmonale Ventricular arrhythmia I49.9 Low blood pressure reading R03.1 Bradycardia, severe sinus R00.1 Congestive heart failure, unspecified HF chronicity, unspecified heart failure type I50.9 Heart failure chronicity: unspecified Heart failure type: unspecified Mixed hyperlipidemia E78.2 Hyperlipidemia type: mixed hyperlipidemia Class 2 severe obesity due to excess calories with serious comorbidity and body mass index (BMI) of 38.0 to 38.9 in adult E66.812; E66.01; Z68.38 Body mass index: BMI 38.0-38.9 Obesity classification: adult class 2 (BMI 35 - 39.9) Obesity type: due to excess calories Serious obesity comorbidity presence: with serious comorbidity
--- NOTE | 2024-11-12 09:13 | PC.CHAP ---
Pastoral Care Encounter/Spiritual Assessment Type of Contact [] Declined food services director visit [] Patient/Family/Request visit [] Outpatient visit [] Follow-up visit [] Physician referral [] Code/Alert [x] Routine visit [] Staff referral [] Actively dying [] Patient sleeping [] Family support [] [] Out of room [] Palliative care [] [] Receiving care in room [] Pre-surgical visit [] Trauma [] Long length of stay [] ICU visit [] Other: Relational/Emotional Strength [] Patient feels connected with others/family/visitors/staff [] Distress [] Loneliness/isolation [] Abandonment Spirituality of Patient [x] Person of Roxy [] Attends Judaism of their Roxy [x] Believes in Prayer [] Reads Bible or Oriental Orthodox materials [] There are Spiritual issues to be addressed Electron Microprobe Operator Interventions [x] Prayer [x] Active listening [] Non-anxious presence [] Spiritual/emotional support [] Crisis/trauma care [] Spiritual counseling [] Bereavement support [] Provided bereavement packet [x] Provided Bible/devotional materials [] Provided toy/stuffed animal, coloring book to patient or family member [] Provided Communion [] Anointing/[place] [] Salvation [x] Completed spiritual assessment [] Other: Impact on Illness or Injury [] Angry [] Fearful [] Anxious [] Often cries [] Exhaustion [] Unable to work [] Unable to attend jain [] Unable to walk/stand [] Unable to read [] Unable to drive [] Unable to eat/drink [] Unable to sleep [] Unable to be with family [] Patient intubated [] Other: Summary Time spent with patient 10 min
[2024-11-12 11:29] LABS: Glucose Point of Care 105 mg/dL (70-110)
--- NOTE | 2024-11-12 12:05 | PM.DCS ---
Discharge Providers Date of Admission: 11/11/24 14:45 Date of Discharge: November 12, 2024 Attending Provider at Admission: Ratna Bailon MD Attending Provider at Discharge: David Borden MD Consults: Cardiology: Dr. Sosa Primary Care Provider: Rupesh Demarco MD Diagnoses at Discharge Discharge Diagnosis (1) Ventricular arrhythmia: Status: Acute (2) Low blood pressure reading: Status: Acute (3) Obesity: Status: Acute Qualifiers: Body mass index: BMI 38.0-38.9 Obesity classification: adult class 2 (BMI 35 - 39.9) Obesity type: due to excess calories Serious obesity comorbidity presence: with serious comorbidity Qualified Code(s): E66.812 - Obesity, class 2; E66.01 - Morbid (severe) obesity due to excess calories; Z68.38 - Body mass index [BMI] 38.0-38.9, adult (4) Bradycardia, severe sinus: Status: Acute (5) Congestive heart failure: Status: Acute Qualifiers: Heart failure chronicity: unspecified Heart failure type: unspecified Qualified Code(s): I50.9 - Heart failure, unspecified Permanent problem details: follows with cardiology (6) Hyperlipidemia: Status: Chronic Qualifiers: Hyperlipidemia type: mixed hyperlipidemia Qualified Code(s): E78.2 - Mixed hyperlipidemia (7) Elevated d-dimer: Status: Acute Reason for Visit Reason for Visit: weak and dizzy Brief History: History as per HPI: Tiff Prater is a 74 year old male with history of V. tach in the past has seen Dr. Sosa, patient is not on any antiarrhythmics, takes multiple antihypertensive regimen including metoprolol, he has BiPAP at home that he uses every night, does not use oxygen the daytime, independent for daily activities, presenting with chief complaint of last 3 days of presyncopal event, dizziness and low blood pressure. Despite all that he has taken his antihypertensive regimen. He is denying syncopal events. No chest pain at all. He is denying fever, nausea, vomiting or diarrhea. In the ER his EKG showing multiple PVCs He is hemodynamically stable blood pressure 124/60 mm catheter my evaluation he is on room air No active chest pain at all troponin traded out Dr. Sosa consulted I have requested TSH, echo head CT unremarkable Hospital Course Hospital Course Patient was admitted to the hospital further evaluation and management of presyncope which at first was thought to be in setting of mild hypotension along with symptomatic multiple VPCs/bigeminy. He was found to have elevated D-dimer. CTA done was consistent with pulmonary embolism. During Hospitalization for low blood pressures his antihypertensives were withheld. He worked well with physical therapy. Echocardiogram was done which ruled out right heart strain. Cardiology was consulted given concerns for bigeminy. Discharged in hemodynamically stable condition on oral Eliquis 10 mg twice daily for next 1 week followed by 5 mg twice daily. He is to check his blood pressure daily at home maintain a blood pressure diary. Goal blood pressures less than 140/90 mmHg. All his antihypertensives are withheld except metoprolol. Lasix has been changed to as needed for increased body weight or swelling. Physical Exam Const: COMMON NORMALS: patient oriented x3 and alert GENERAL APPEARANCE: cooperative NUTRITIONAL APPEARANCE: obese ORIENTATION/CONSCIOUSNESS: Yes awake HENMT: COMMON NORMALS: oropharynx normal OTHER: Tiny bruise inf L orbit Neck/C-Spine: COMMON NORMALS: no JVD Resp: COMMON NORMALS: normal respiratory effort and clear to auscultation bilaterally AUSCULTATION: clear to auscultation bilaterally Cardio: COMMON NORMALS: no JVD, regular rhythm, S1 normal heart sound present, S2 normal heart sound present and No murmurs present (Cardio) RHYTHM: regular rhythm HEART SOUNDS: S1 normal heart sound present and S2 normal heart sound present GI: COMMON NORMALS: Normal to inspection, nondistended, normoactive bowel sounds present, Soft to palpation and non-tender PALPATION: Yes Soft to palpation Extremity: COMMON NORMALS: no joint enlargement NARRATIVE EXTREMITY EXAM: Bruising L calf GENERAL: Yes edema (Trace) Neuro: COMMON NORMALS: patient oriented x3 and moves all extremities SENSORIUM/ORIENTATION: Yes alert Skin: COMMON NORMALS: no rashes or lesions noted GENERAL SKIN EXAM: no rashes or lesions noted Discharge Data Studies Completed and Pending Completed Studies During Hospitalization Category Date Time Status CT head wo con* [id number] Stat Cat Scan 11/10/24 18:27 Completed CTA chest [CT angio chest PE protcl [id number]] Routine Cat Scan 11/11/24 12:59 Completed XR chest 1V portable [id number] Stat Exams 11/10/24 18:27 [place] [id number] Routine Ultrasound 11/11/24 08:25 Completed CV. echo limited [id number] Routine Ultrasound 11/11/24 19:56 Completed Radiology Impressions Chest X-Ray 11/10/24 18:27 IMPRESSION: Cardiomegaly with findings suggesting pulmonary vascular congestion. Head CT 11/10/24 18:27 IMPRESSION: 1. No acute intracranial abnormality. 2. Mild chronic ischemic small-vessel disease. Venous Duplex 11/11/24 08:25 IMPRESSION: No evidence of deep vein thrombosis. Chest CTA 11/11/24 12:59 IMPRESSION: Bilateral acute pulmonary embolism. ADDENDUM: 11/11/24 2681 THIS REPORT CONTAINS FINDINGS THAT MAY BE CRITICAL TO PATIENT CARE. The findings were verbally communicated via telephone conference with RON Bertrand at 1:57 PM [employer]ING [employer]DER on 11/11/2024. The findings were acknowledged and understood. Laboratory Results WBC 6.72 10^3/uL (3.29-11.43) 11/12/24 05:46 RBC 4.03 10^6/uL (3.85-5.65) 11/12/24 05:46 Hgb 13.00 g/dL (11.27-16.99) 11/12/24 05:46 Hct 40.4 % (37-53) 11/12/24 05:46 MCV 100.2 fl (82-101) 11/12/24 05:46 MCH 32.3 pg (27-33) 11/12/24 05:46 MCHC 32.2 g/dL (30-55) 11/12/24 05:46 RDW 13.5 % (12.1-15.1) 11/12/24 05:46 Plt Count 177 10^3/cmm (157-399) 11/12/24 05:46 MPV 9.8 fL (7.4-10.4) 11/12/24 05:46 Neut % (Auto) 45.6 % 11/12/24 05:46 Lymph % (Auto) 42.3 % 11/12/24 05:46 [place] % (Auto) 7.0 % 11/12/24 05:46 Eos % (Auto) 4.3 % 11/12/24 05:46 Baso % (Auto) 0.4 % 11/12/24 05:46 Neut # (Auto) 3.06 10^3/uL (1.8-7.7) 11/12/24 05:46 Lymph # (Auto) 2.8 10^3/uL (0.8-4.8) 11/12/24 05:46 [place] # (Auto) 0.5 10^3/uL (0.2-0.9) 11/12/24 05:46 Eos # (Auto) 0.3 10^3/uL (0.0-0.8) 11/12/24 05:46 Baso # (Auto) 0.0 10^3/uL (0.0-0.1) 11/12/24 05:46 Nucleated RBC % (auto) 0 % 11/12/24 05:46 Nucleated RBCs # 0.0 /100WBC 11/12/24 05:46 PT 13.10 SECONDS (12.1-14.9) 11/10/24 19:18 INR 0.92 (0.8-1.2) 11/10/24 19:18 APTT 29.4 SECONDS (23.9-36.7) 11/10/24 19:18 D-Dimer 5.65 ug/mLFEU (0-0.59) H 11/10/24 19:18 Sodium 137 mmol/L (136-145) 11/12/24 05:46 Potassium 4.2 mmol/L (3.5-5.1) 11/12/24 05:46 Chloride 101 mmol/L (98-107) 11/12/24 05:46 Carbon Dioxide 23 mmol/L (22-29) 11/12/24 05:46 Anion Gap 17.2 (5-19) 11/12/24 05:46 BUN 15 mg/dL (8-23) 11/12/24 05:46 Creatinine 1.0 mg/dL (0.7-1.2) 11/12/24 05:46 GFR Calculation Not Reportable 11/12/24 05:46 Glucose 92 mg/dL (65-115) 11/12/24 05:46 POC Glucose 105 mg/dL (70-110) 11/12/24 11:18 Calculated Osmolality 284 mOsm/kg (285-295) L 11/12/24 05:46 Calcium 9.0 mg/dL (8.5-10.5) 11/12/24 05:46 Phosphorus 3.8 mg/dL (2.5-4.5) 11/10/24 19:18 Magnesium 2.1 mg/dL (1.7-2.3) 11/11/24 01:23 Total Bilirubin 0.2 mg/dL (0.15-1.2) 11/10/24 19:18 AST 20 U/L (0-40) 11/10/24 19:18 ALT 17 U/L (0-41) 11/10/24 19:18 Alkaline Phosphatase 86 U/L (40-130) 11/10/24 19:18 Troponin T Baseline 19 ng/L (0-15) H 11/10/24 19:18 Troponin T 120 Minute 17.46 ng/L (0-15) H 11/10/24 20:59 Delta Troponin T -1.54 ABS# (0-10) L 11/10/24 20:59 Troponin T Hi Sens 6Hr 14.90 ng/L (0-15) 11/11/24 01:23 Troponin T Hi Sens 6Hr Delta -4.10 ng/L (0-12) L 11/11/24 01:23 C-React Prot High Sens 0.700 mg/dL (0.0-0.3) H 11/10/24 19:18 NT-Pro-B Natriuret Pep 378 pg/mL (0-450) 11/10/24 19:18 Total Protein 6.2 g/dL (6.6-8.7) L 11/10/24 19:18 Albumin 4.0 g/dL (3.5-5.2) 11/10/24 19:18 Globulin 2.2 g/dL (1.3-4.6) 11/10/24 19:18 TSH 3.64 uIU/mL (0.27-4.20) 11/10/24 19:18 Urine Color Yellow (Yellow) 11/11/24 06:45 Urine Appearance Clear (CLEAR) 11/11/24 06:45 Urine pH 5.5 (5-7) 11/11/24 06:45 Ur Specific [place] 1.018 (1.005-1.030) 11/11/24 06:45 Urine Protein Negative (Negative) 11/11/24 06:45 Urine Glucose (UA) Negative (Normal) 11/11/24 06:45 Urine Ketones Negative (Negative) 11/11/24 06:45 Urine Blood Negative (Negative) 11/11/24 06:45 Urine Nitrate Negative (Negative) 11/11/24 06:45 Urine Bilirubin Negative (Negative) 11/11/24 06:45 Urine Urobilinogen 0.2 mg/dL (Negative) 11/11/24 06:45 Ur Leukocyte Esterase Negative (Negative) 11/11/24 06:45 Urine RBC 0-2 /hpf (0-2) 11/11/24 06:45 Urine WBC 0-5 /hpf (0-5) 11/11/24 06:45 Ur Squamous Epith Cells 0-5 /hpf (0-5) 11/11/24 06:45 Amorphous Sediment Not Reportable 11/11/24 06:45 Urine Bacteria None seen /hpf (NONE) 11/11/24 06:45 Hyaline Casts 0-4 /lpf H 11/11/24 06:45 Vitals Last Vital Signs Temp 98 F 11/12/24 11:55 Pulse 58 L 11/12/24 11:55 Resp 18 11/12/24 11:55 BP 116/65 11/12/24 11:55 Pulse Ox 95 11/12/24 11:55 O2 Del Method Room Air 11/12/24 11:55 Discharge Plan Discharge Patient Disposition: Home Condition: Stable Prescriptions: New magnesium L-lactate [Magtab] 84 mg Tablet Extended Release 84 mg PO BID Qty: 60 0RF Eliquis DVT-PE Treat 30D Start 5 mg (74 tabs) tablets,dose pack See Rx Instructions .ROUTE .COMPLEX Qty: 74 0RF Rx Instructions: orally per package directions Continued prednisolone acetate 1 % drops,suspension 1 drp ophthalmic (eye) DAILY methotrexate sodium 2.5 mg tablet 20 mg PO .every week folic acid 1 mg tablet 1 mg PO DAILY ezetimibe 10 mg tablet 10 mg PO DAILY albuterol sulfate 2.5 mg /3 mL (0.083 %) solution for nebulization 2.5 mg inhalation Q6H PRN (Reason: shortness of breath or wheezing) cetirizine 10 mg tablet 10 mg PO DAILY acetaminophen [Tylenol Arthritis Pain] 650 mg tablet extended release 650 mg PO Q8H docusate sodium [Colace] 100 mg capsule 100 mg PO DAILY PRN (Reason: Constipation) gabapentin 300 mg capsule 300 mg PO DAILY levothyroxine 200 mcg tablet 200 mcg PO DAILY insulin lispro [Humalog U-100 Insulin] 100 unit/mL solution 140 unit continuous subcutaneous infusion DAILY metoclopramide HCl 10 mg tablet 10 mg PO DAILY multivit with min-folic acid 0.4 mg tablet 1 tab PO DAILY Humira 40 mg/0.8 mL syringe kit 40 mg SUBCUT Q14D Qty: 2 0RF (DME) CPAP Mask, tubing and all other supplies for CPAP See Rx Instructions .ROUTE .MEDSUPPLY Qty: 1 0RF Rx Instructions: As directed Ozempic 0.25 mg or 0.5 mg (2 mg/3 mL) pen injector 0.5 mg SUBCUT .Once a week (DME) Bipap, mask and supplies See Rx Instructions .Route .MEDSUPPLY Qty: 1 6RF Rx Instructions: Settings . Use at night. ropinirole 3 mg tablet 3 mg PO .qhs Qty: 90 3RF tamsulosin 0.4 mg capsule 0.4 mg PO DAILY Qty: 30 6RF metoprolol succinate 50 mg tablet extended release 24 hr 50 mg PO DAILY Qty: 90 3RF omeprazole 20 mg capsule,delayed release(DR/EC) 20 mg PO DAILY Qty: 90 3RF bupropion HCl 300 mg tablet extended release 24 hr 300 mg PO DAILY Qty: 90 3RF Humalog U-100 Insulin 100 unit/mL cartridge 15 unit SUBCUT TID PRN (Reason: blood sugar) Rx Instructions: Patient only uses this if his insulin pump is empty Changed furosemide 40 mg tablet 80 mg PO DAILY PRN (Reason: Swelling, shortness of breath) Qty: 10 0RF Held isosorbide mononitrate 30 mg tablet extended release 24 hr 30 mg PO DAILY Hold Instructions: Resume on 11/26/24. Discontinued spironolactone 100 mg tablet 100 mg PO DAILY Discharge Orders: Discharge Order (Routine); Ordered 11/12/24 Ordered By: David Borden Referrals: Rupesh Demarco MD [Primary Care Provider] - 11/14/24 11:40 am ( ) Discharge Diet: Cardiac and Diabetic Discharge Activity: Resume usual activity and Increase activity as tolerated Patient Instructions: Magnesium Oxide (By mouth), Apixaban (By mouth), Syncope (DC), Opioid Safety Activity Restrictions/Additional Instructions: Check your blood pressure daily at home maintain a blood pressure diary. Hold off on home dose of spironolactone and Imdur for now. Lasix has been changed to only as needed for shortness of breath or increasing body weight by 5 pounds. Please check your weight daily at home maintain a body weight diary. Your goal blood pressure is less than 140/90 mmHg. Follow-up with a primary care provider with a blood pressure diary in 2 weeks for further adjustment of antihypertensives as needed. Eliquis with blood thinner which is supposed to take going forward. Take 10 mg twice daily for next 1 week followed by 5 mg twice daily. Discharge Attestations Time Spent in Discharge Care*: greater than 30 min Specific Discharge Activities: educating patient, discussing with pcp/other providers, discussing with bilingual patient support caseworker/social workers/dc planners, documenting/other paperwork and evaluating patient/reviewing data Status at Discharge: Cognitive status at discharge: cognitively intact, Behavioral status at discharge: cooperative, Functional status at discharge: independent ambulation, Overall status at discharge: patient is back to baseline Quality Metrics Clinical Quality Measures [ No reported AMI, CVA or VTE this stay] Coding Level of Care Code 89895 Total time (in minutes) for Discharge: 60 Diagnoses Ventricular arrhythmia I49.9 Low blood pressure reading R03.1 Class 2 severe obesity due to excess calories with serious comorbidity and body mass index (BMI) of 38.0 to 38.9 in adult E66.812; E66.01; Z68.38 Body mass index: BMI 38.0-38.9 Obesity classification: adult class 2 (BMI 35 - 39.9) Obesity type: due to excess calories Serious obesity comorbidity presence: with serious comorbidity Bradycardia, severe sinus R00.1 Congestive heart failure, unspecified HF chronicity, unspecified heart failure type I50.9 Heart failure chronicity: unspecified Heart failure type: unspecified Mixed hyperlipidemia E78.2 Hyperlipidemia type: mixed hyperlipidemia Elevated d-dimer R79.89
--- NOTE | 2024-11-12 13:24 | PC.SOCIAL ---
IMM Update pg 2 of IMM updated and reviewed w/ patient. Copy provided and copy dated, initialed and placed in chart.
== END 2024-11-12 14:05 | disposition home or self-care (01) | DRG 308 ==
LOC: ER 19:35 → MEDSURG 20:52
PROVIDERS: Internal Medicine; Internal Medicine Cardiovascular Disease; Admitting Provider Internal Medicine; Emergency Provider Emergency Medicine; PCP Family Medicine; Visit Provider Student in an Organized Health Care Education/Training Program
DX: I47.20 Ventricular tachycardia, unspecified (principal); I26.99 Other pulmonary embolism without acute cor pulmonale; Z68.42 Body mass index [BMI] 45.0-49.9, adult; R03.1 Nonspecific low blood-pressure reading; E66.01 Morbid (severe) obesity due to excess calories; R00.1 Bradycardia, unspecified; I11.0 Hypertensive heart disease with heart failure; I50.9 Heart failure, unspecified; E78.5 Hyperlipidemia, unspecified; M35.3 Polymyalgia rheumatica; M06.9 Rheumatoid arthritis, unspecified; G25.81 Restless legs syndrome; G47.33 Obstructive sleep apnea (adult) (pediatric); R01.1 Cardiac murmur, unspecified; R00.8 Other abnormalities of heart beat; R55 Syncope and collapse; N40.0 Benign prostatic hyperplasia without lower urinary tract symptoms; E03.9 Hypothyroidism, unspecified; E11.9 Type 2 diabetes mellitus without complications; E55.9 Vitamin D deficiency, unspecified; F32.9 Major depressive disorder, single episode, unspecified; K21.9 Gastro-esophageal reflux disease without esophagitis; D50.9 Iron deficiency anemia, unspecified; Z98.84 Bariatric surgery status; Z79.85 Long-term (current) use of injectable non-insulin antidiabetic drugs; Z79.4 Long term (current) use of insulin
CPT/HCPCS: 36415; 36416; 70450; 71045; 71275; 80048; 80053; 81001; 82962; 83735; 83880; 84100; 84443; 84484; 85025; 85378; 85610; 85730; 86141; 93005; 93308; 93970; 94640; 96360; 96372; 97161; 99285; G0378; J1650

== ENCOUNTER → 2024-11-20 10:53 | Outpatient (BNVA) | payer MEDICARE, SELFPAY | PROVIDERS: PCP Family Medicine; Visit Provider Podiatrist Foot & Ankle Surgery | DX: L60.3 Nail dystrophy (principal); E11.8 Type 2 diabetes mellitus with unspecified complications; R60.9 Edema, unspecified; M76.60 Achilles tendinitis, unspecified leg; G62.9 Polyneuropathy, unspecified; Z79.4 Long term (current) use of insulin | CPT/HCPCS: 11721; 99203 ==

== ENCOUNTER 2024-11-21 09:01 | Oncology outpatient (recurring) (ONCR) | payer MEDICARE, SELFPAY ==
--- NOTE | 2024-11-21 10:48 | XR_ITS ---
WS: [email or web address] XR bone survey* [id number] REASON FOR EXAM: elevated light chains FINDINGS: Multiple axial and extremity images for evaluation of bony multiple myeloma. AXIAL: Posterior lumbar fusion with severe compression deformity of L5. No previous examination for comparis on. The thoracic spine demonstrates dextroscoliosis and moderate degenerative spondylosis without focal l esion or significant compression deformity. The cervical spine demonstrates anterior fusion with no significant compression deformity or focal le vi. No lesions of the skull. No lesions in the visualized ribs. No abnormality of the bony pelvis. EXTREMITIES: Total reverse left shoulder arthroplasty. Total right knee arthroplasty. No focal lesions of the visualized extremities. XR/XR bone survey* [id number] IMPRESSION: The only finding of significance for the myeloma survey is severe compression d eformity of L5. The abnormality appears chronic and most likely unrelated to mu ltiple myeloma. There are no previous exams for comparison.
[2024-11-21 11:05] LABS: Basophils % 0.5 %; Eosinophils # 0.3 10^3/uL (0.0-0.8); Eosinophils % 4.9 %; Hematocrit 36.7 % (37-53); Lymphocytes # 1.7 10^3/uL (0.8-4.8); Lymphocytes % 28.4 %; Mean Corpuscular HGB Conc 33.8 g/dL (30-55); Mean Corpuscular Hemoglobin 32.6 pg (27-33); Mean Corpuscular Volume 96.6 fl (82-101); Mean Platelet Volume 10.1 fL (7.4-10.4); Monocytes # 0.3 10^3/uL (0.2-0.9); Monocytes % 5.1 %; Neutrophils # 3.71 10^3/uL (1.8-7.7); Neutrophils % 60.6 %; Nucleated Red Blood Cells % 0 %; Platelet Count 209 10^3/cmm (157-399); Red Cell Distribution Width 13.2 % (12.1-15.1); White Blood Count 6.12 10^3/uL (3.29-11.43)
[2024-11-21 11:25] LABS: D Dimer 1.02 ug/mLFEU (0-0.59)
[2024-11-21 11:28] LABS: Alanine Aminotransferase 20 U/L (0-41); Alkaline Phosphatase 78 U/L (40-130); Anion Gap 16.2 (5-19); Aspartate Amino Transferase 19 U/L (0-40); Blood Urea Nitrogen 12 mg/dL (8-23); C Reactive Protein 7.6 mg/L (0.0-4.9); Calcium 8.9 mg/dL (8.5-10.5); Carbon Dioxide 25 mmol/L (22-29); Chloride 100 mmol/L (98-107); Creatinine Clr Calc Pharmacy 93.5819; Globulin 2.5 g/dL (1.3-4.6); Glucose 202 mg/dL (65-115); Immunoglobulin IGA 165 mg/dL (70-400); Immunoglobulin IGG 976 mg/dL (700-1600); Immunoglobulin IGM 63 mg/dL (40-230); Lactate Dehydrogenase 216 U/L (135-225); Osmolality Calculated 290 mOsm/kg (285-295); Phosphorus 2.6 mg/dL (2.5-4.5); Potassium 4.2 mmol/L (3.5-5.1); Sodium 137 mmol/L (136-145); Total Bilirubin 0.5 mg/dL (0.15-1.2); Total Protein 6.5 g/dL (6.6-8.7); Uric Acid 5.3 mg/dL (3.4-7.0)
[2024-11-22 13:07] LABS: Leukemia Profile (BBPL) See Report
[2024-11-22 20:19] LABS: PTT-LA-Screen 40 sec (< OR = 40)
[2024-11-23 11:54] LABS: KAPPA LIGHT CHAIN, FREE, SERUM 28.2 mg/L (3.3-19.4); LAMBDA LIGHT CHAIN, FREE, SERU 14.1 mg/L (5.7-26.3)
[2024-11-23 22:05] LABS: CARDIOLIPIN AB (IGA) <2.0 APL-U/mL; CARDIOLIPIN AB (IGG) <2.0 GPL-U/mL; CARDIOLIPIN AB (IGM) 2.7 MPL-U/mL
[2024-11-24 21:19] LABS: PROTEIN C, ACTIVITY 157 % normal (70-180)
[2024-11-24 21:45] LABS: Antithrombin III Activity 108 % normal (80-135)
[2024-11-26 11:06] LABS: Protein S Antigen, Total 103 % normal (70-140)
[2024-11-26 19:59] LABS: Immunofixation Serum Normal pattern.
== END 2024-11-21 23:59 | disposition home or self-care (01) ==
PROVIDERS: PCP Family Medicine; Visit Provider Internal Medicine
DX: R76.8 Other specified abnormal immunological findings in serum (principal); M43.8X6 Other specified deforming dorsopathies, lumbar region; D80.8 Other immunodeficiencies with predominantly antibody defects; I26.99 Other pulmonary embolism without acute cor pulmonale; I50.9 Heart failure, unspecified; I49.9 Cardiac arrhythmia, unspecified; G47.33 Obstructive sleep apnea (adult) (pediatric); E11.8 Type 2 diabetes mellitus with unspecified complications; E03.9 Hypothyroidism, unspecified; Z86.718 Personal history of other venous thrombosis and embolism; Z79.01 Long term (current) use of anticoagulants; I11.0 Hypertensive heart disease with heart failure; Z90.89 Acquired absence of other organs
CPT/HCPCS: 36415; 77075; 80053; 81219; 81241; 81270; 81279; 81339; 82784; 83010; 83615; 83883; 84100; 84550; 85025; 85210; 85300; 85303; 85305; 85378; 85613; 85730; 86140; 86146; 86147; 86334; 88184; 88185; 99204

== ENCOUNTER 2024-11-29 09:15 | Oncology outpatient (recurring) (ONCR) | payer MEDICARE, SELFPAY ==
--- NOTE | 2024-11-29 09:30 | US_ITS ---
WS: [id number] Complete ABDOMINAL ULTRASOUND HISTORY: elevated free light chains COMPARISON: None available. Liver: 20.5 cm in length. Enlarged liver is poorly visualized. Poor echogenic windows and body habitu s limiting evaluation of the liver. Hypoechoic mass towards the diaphragm measures 1.7 x 1.6 x 1.3 cm . Portal Vein: Normal hepatopetal flow with monophasic waveform. Gallbladder: Prior cholecystectomy. CBD: 0.8 cm Pancreas: Not visualized. Right kidney: 10.2 cm x 5.4 x 6.1 cm. Cortex:1.1 cm. Hypoechoic mass exophytic from the lower pole measures 1.2 x 1.2 x 1.3 cm. Left kidney: 11.4 cm x 4.9 cm x 5.9 cm. Cortex: 1.2 cm. Cyst from the superior pole measures 3.5 x 3.9 x 3.3 cm. No hydronephrosis or solid mass. Spleen: 12.2 cm. Normal size and echogenicity. Aorta and IVC: Unremarkable abdominal aorta and IVC. US/US abdomen complete* [id number] Impression: 1. Limited quality evaluation of the abdominal ultrasound due to patient's bod y habitus. 2. Prior cholecystectomy. 3. Bilateral renal masses. Favor these are probably cysts but are difficult to characterize completely due to patient's body habitus. 4. Indeterminate hypoechoic mass in the liver. Complex cyst, hemangioma or met astatic disease not excluded. For further evaluation MRI or CT for hepatic mass protocol can be obtained. This would include imaging with and without contrast .
== END 2024-12-07 23:59 | disposition home or self-care (01) ==
LOC: RAD 09:15 → ONCMED 09:53
PROVIDERS: PCP Family Medicine; Visit Provider Internal Medicine
DX: R76.8 Other specified abnormal immunological findings in serum (principal); Z90.49 Acquired absence of other specified parts of digestive tract; N28.89 Other specified disorders of kidney and ureter; R16.0 Hepatomegaly, not elsewhere classified
CPT/HCPCS: 76700

== ENCOUNTER → 2024-12-03 10:31 | Outpatient (BNVA) | payer MEDICARE, SELFPAY | PROVIDERS: PCP Family Medicine; Visit Provider Nurse Practitioner Family | DX: I11.0 Hypertensive heart disease with heart failure (principal); I50.9 Heart failure, unspecified; M79.89 Other specified soft tissue disorders; I47.20 Ventricular tachycardia, unspecified; E78.2 Mixed hyperlipidemia; E11.8 Type 2 diabetes mellitus with unspecified complications; G47.33 Obstructive sleep apnea (adult) (pediatric); E66.812 Obesity, class 2; E66.01 Morbid (severe) obesity due to excess calories; Z68.38 Body mass index [BMI] 38.0-38.9, adult; Z79.4 Long term (current) use of insulin; Z86.718 Personal history of other venous thrombosis and embolism; Z79.01 Long term (current) use of anticoagulants | CPT/HCPCS: 99214 ==

== ENCOUNTER 2024-12-26 07:15 | Oncology outpatient (recurring) (ONCR) | payer MEDICARE, SELFPAY ==
--- NOTE | 2024-12-26 07:15 | MR_ITS ---
WS: [email or web address] MRI OF THE ABDOMEN WITHOUT GADOLINIUM ENHANCEMENT TECHNIQUE: Coronal T2 Fase BH, Axial T2 Fase BH, Axial T2 FS BH, Zxial 3D BH, Axial 3D Dyn BH Post sequences. CLINICAL INFORMATION: Hx pulmonary embolism COMPARISON: Ultrasound 11/29/2024 FINDINGS: Abdominal images significantly limited due to respiratory artifact. Patient difficulty holding breath. Prior cholecystectomy. Mild hepatomegaly LEFT renal cyst measuring 3.8 x 3.4 cm. No hydronephrosis in either kidney. Smaller RIGHT renal cyst measuring 1.3 cm. Normal caliber abdominal aorta. Celiac and SMA appear patent. Proximal renal arteries appear patent. Portal vein and splenic vein appear patent. Small esophageal hiatal hernia. Lobulated lesion in the RIGHT hepatic lobe measuring 1.8 cm likely small cyst or hemangioma. Post gadolinium images are too degraded to adequately evaluate. Adrenal glands appear normal. MR/MR abdomen wo/w con* [id number] Impression: Limited examination due to significant respiratory artifact. Post post gadolini um images essentially nondiagnostic. Recommend any additional follow-up of the liver and kidneys to be performed with contrast-enhanced CT abdomen pelvis Also spinal fusion hardware significantly degrades pelvic MRI imaging. 1. LEFT renal cyst measuring 3.8 x 3.4 cm. 2. Small RIGHT renal cyst. 3. 1.8 cm T2 hyperintense hepatic lesion likely small cyst or hemangioma. Resp iratory artifact on the post gadolinium images degrades further evaluation of t his lesion 4. Small esophageal hiatal hernia. 5. No other remarkable findings considering limitations
--- NOTE | 2024-12-26 08:00 | MR_ITS ---
WS: [email or web address] MRI OF THE PELVIS WITHOUT AND WITH GADOLINIUM ENHANCEMENT. INDICATION: Multiple myeloma TECHNIQUE: Coronal T1, coronal STIR, axial T2 fat-sat, axial T1, sagittal T2 fat-sat and post gadolinium imaging was obtained. FINDINGS: Pelvic imaging is somewhat limited due to extensive lumbar fusion hardware and body habitus. Prior postoperative changes pedicle screw fixation with interbody fusion L2-L5. Osteopenia. Chronic compression of L5. Heterogeneous bone marrow signal throughout the visualized pelvic bony structures compatible with history of multiple myeloma. This involves the bony pelvis and sacrum extending into the pubic rami and bilateral acetabulum and proximal femurs. No pelvic lymphadenopathy. No significant inguinal lymphadenopathy. Heterogeneous enhancing enlarged nodular prostate measuring 3.6 x 4.7 cm. Recommend correlation PSA. 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 No large dominant expansile myelomatous lesions. MR/MR pelvis wo/w con [id number] IMPRESSION: Pelvic imaging is somewhat limited due to extensive lumbar fusion hardware and body habitus. 1. Diffuse heterogeneous bone marrow signal throughout the visualized bony str uctures compatible with history of multiple myeloma. No large dominant destruct ryan myelomatous or soft tissue lesions. 2. Enlarged heterogeneous nodular prostate suspicious for neoplasia/hyperplasi a recommend correlation PSA. 3. Diffuse bladder wall thickening likely due to bladder outlet obstruction. 4. No other acute findings.
== END 2025-01-04 23:59 | disposition home or self-care (01) ==
LOC: RAD 12-27 00:01 → ONCMED 12-27 09:05
PROVIDERS: PCP Family Medicine; Visit Provider Internal Medicine
DX: E55.9 Vitamin D deficiency, unspecified (principal); Z86.711 Personal history of pulmonary embolism; D50.9 Iron deficiency anemia, unspecified; N32.9 Bladder disorder, unspecified; N28.1 Cyst of kidney, acquired; N40.2 Nodular prostate without lower urinary tract symptoms; Z85.79 Personal history of other malignant neoplasms of lymphoid, hematopoietic and related tissues; K44.9 Diaphragmatic hernia without obstruction or gangrene; K76.89 Other specified diseases of liver
CPT/HCPCS: 72197; 74183; 99213

== ENCOUNTER 2025-01-15 12:57 | Outpatient (RCR) | payer MEDICARE, SELFPAY | END 2025-02-04 12:09 | disposition home or self-care (01) | LOC: SPT 12:57 | PROVIDERS: PCP Family Medicine; Visit Provider Family Medicine | DX: R42 Dizziness and giddiness (principal) | CPT/HCPCS: 95992; 97112; 97161 ==

== ENCOUNTER 2025-01-15 20:00 | Outpatient (CLI) | payer MEDICARE, SELFPAY | END 2025-01-15 20:01 | disposition home or self-care (01) | LOC: SLEEP 01-16 05:03 | PROVIDERS: PCP Family Medicine; Visit Provider Family Medicine | DX: G47.33 Obstructive sleep apnea (adult) (pediatric) (principal) | CPT/HCPCS: 95811 ==

== ENCOUNTER 2025-01-16 09:30 | Oncology outpatient (recurring) (ONCR) | payer MEDICARE, SELFPAY ==
[2025-01-15 09:43] LABS: Basophils % 0.5 %; Eosinophils # 0.1 10^3/uL (0.0-0.8); Eosinophils % 1.9 %; Hematocrit 42.5 % (37-53); Lymphocytes # 1.9 10^3/uL (0.8-4.8); Mean Corpuscular HGB Conc 31.8 g/dL (30-55); Mean Corpuscular Volume 97.5 fl (82-101); Mean Platelet Volume 10.1 fL (7.4-10.4); Monocytes # 0.4 10^3/uL (0.2-0.9); Neutrophils # 3.42 10^3/uL (1.8-7.7); Neutrophils % 58.4 %; Nucleated Red Blood Cells % 0 %; Platelet Count 198 10^3/cmm (157-399); Red Blood Count 4.36 10^6/uL (3.85-5.65); White Blood Count 5.85 10^3/uL (3.29-11.43)
[2025-01-15 10:02] LABS: Alanine Aminotransferase 14 U/L (0-41); Alkaline Phosphatase 65 U/L (40-130); Anion Gap 12.4 (5-19); Aspartate Amino Transferase 17 U/L (0-40); Blood Urea Nitrogen 14 mg/dL (8-23); Calcium 8.6 mg/dL (8.5-10.5); Carbon Dioxide 28 mmol/L (22-29); Chloride 103 mmol/L (98-107); Glucose 133 mg/dL (65-115); Lactate Dehydrogenase 189 U/L (135-225); Osmolality Calculated 290 mOsm/kg (285-295); Potassium 4.4 mmol/L (3.5-5.1); Sodium 139 mmol/L (136-145); Total Bilirubin 0.6 mg/dL (0.15-1.2)
[2025-01-15 10:04] LABS: D Dimer 0.58 ug/mLFEU (0-0.59)
--- NOTE | 2025-01-16 09:30 | USR_ITS ---
PROCEDURE INFORMATION: Exam: US Duplex Lower Extremity Veins, Bilateral Exam date and time: 01/16/2025 9:38 AM Age: 74 years old Clinical indication: Swelling (edema) of limb; Lower extremity, left; Additional info: Lower extremity swelling TECHNIQUE: Imaging protocol: Real-time duplex ultrasound of the bilateral extremities with 2-D calles scale, color Doppler flow and spectral waveform analysis including responses to compression and other maneuvers (when performed) with image documentation. Complete exam focused on the lower extremity veins. COMPARISON: No relevant prior studies available. FINDINGS: Right deep veins: Unremarkable. The common femoral, femoral, proximal profunda femoral and popliteal veins are patent without thrombus. Normal Doppler waveforms. Normal compressibility and/or augmentation response. Left deep veins: Unremarkable. The common femoral, femoral, proximal profunda femoral and popliteal veins are patent without thrombus. Normal Doppler waveforms. Normal compressibility and/or augmentation response. Superficial veins: Greater saphenous veins at the saphenofemoral junctions are patent bilaterally without thrombus. Reflux is noted within the left greater saphenous vein [id number]. US/CV lanette dup bran [facility] [id number] IMPRESSION: No evidence of deep vein thrombosis.
== END 2025-02-04 23:59 | disposition home or self-care (01) ==
LOC: RAD 09:30 → ONCMED 09:59 → RAD 01-17 00:01 → ONCMED 01-17 09:01
PROVIDERS: PCP Family Medicine; Visit Provider Internal Medicine
DX: Z53.9 Procedure and treatment not carried out, unspecified reason; D80.8 Other immunodeficiencies with predominantly antibody defects; I26.99 Other pulmonary embolism without acute cor pulmonale; M79.89 Other specified soft tissue disorders; I50.9 Heart failure, unspecified; I11.0 Hypertensive heart disease with heart failure; I49.9 Cardiac arrhythmia, unspecified; G47.33 Obstructive sleep apnea (adult) (pediatric); E11.8 Type 2 diabetes mellitus with unspecified complications; E03.9 Hypothyroidism, unspecified; K76.89 Other specified diseases of liver; Z87.891 Personal history of nicotine dependence; N32.89 Other specified disorders of bladder; Z90.89 Acquired absence of other organs; Z79.01 Long term (current) use of anticoagulants
CPT/HCPCS: 36415; 80053; 83615; 85025; 85378; 93970; 99213

== ENCOUNTER → 2025-01-22 11:15 | Outpatient (BNVA) | payer MEDICARE, SELFPAY | PROVIDERS: PCP Family Medicine; Visit Provider Podiatrist Foot & Ankle Surgery | DX: E11.8 Type 2 diabetes mellitus with unspecified complications (principal); L60.3 Nail dystrophy; M76.62 Achilles tendinitis, left leg; R60.9 Edema, unspecified; G62.9 Polyneuropathy, unspecified; Z79.4 Long term (current) use of insulin | CPT/HCPCS: 11721; 73630; 99213 ==

== ENCOUNTER 2025-02-07 14:25 | Outpatient (RCR) | payer MEDICARE, SELFPAY | END 2025-03-06 23:59 | disposition home or self-care (01) | LOC: SPT 14:25 | PROVIDERS: PCP Family Medicine; Visit Provider Podiatrist Foot & Ankle Surgery | DX: M76.62 Achilles tendinitis, left leg (principal) | CPT/HCPCS: 97110; 97140; 97161 ==

== ENCOUNTER → 2025-03-04 10:04 | Outpatient (BNVA) | payer MEDICARE, SELFPAY | PROVIDERS: PCP Family Medicine; Visit Provider Nurse Practitioner Family | DX: I11.0 Hypertensive heart disease with heart failure (principal); I50.9 Heart failure, unspecified; E78.2 Mixed hyperlipidemia; I47.20 Ventricular tachycardia, unspecified; Z86.711 Personal history of pulmonary embolism; G47.33 Obstructive sleep apnea (adult) (pediatric); Z87.891 Personal history of nicotine dependence | CPT/HCPCS: 99214 ==

== ENCOUNTER 2025-03-07 05:00 | Outpatient (RCR) | payer MEDICARE, SELFPAY | END 2025-04-06 23:59 | disposition home or self-care (01) | LOC: SPT 05:00 | PROVIDERS: PCP Family Medicine; Visit Provider Podiatrist Foot & Ankle Surgery | DX: M76.62 Achilles tendinitis, left leg (principal) | CPT/HCPCS: 97110; 97140 ==

== ENCOUNTER → 2025-03-26 10:17 | Outpatient (BNVA) | payer MEDICARE, SELFPAY | PROVIDERS: PCP Family Medicine; Visit Provider Podiatrist Foot & Ankle Surgery | DX: E11.42 Type 2 diabetes mellitus with diabetic polyneuropathy (principal); L60.3 Nail dystrophy; R60.9 Edema, unspecified; G62.9 Polyneuropathy, unspecified; L03.031 Cellulitis of right toe; Z79.4 Long term (current) use of insulin | CPT/HCPCS: 11721; 99214 ==

== ENCOUNTER 2025-04-07 05:00 | Outpatient (RCR) | payer MEDICARE, SELFPAY | END 2025-04-26 09:06 | disposition home or self-care (01) | LOC: SPT 05:00 | PROVIDERS: PCP Family Medicine; Visit Provider Podiatrist Foot & Ankle Surgery | DX: M76.62 Achilles tendinitis, left leg (principal) | CPT/HCPCS: 97110; 97140 ==

== ENCOUNTER 2025-05-14 11:59 | Outpatient (RCR) | payer MEDICARE, OTHER, SELFPAY | END 2025-06-06 23:59 | disposition home or self-care (01) | LOC: SOT 11:59 | PROVIDERS: PCP Family Medicine; Visit Provider Orthopaedic Surgery Hand Surgery | DX: Z98.890 Other specified postprocedural states (principal) | CPT/HCPCS: 97110; 97140; 97165 ==

== ENCOUNTER → 2025-05-28 10:59 | Outpatient (BNVA) | payer MEDICARE, OTHER, SELFPAY | PROVIDERS: PCP Family Medicine; Visit Provider Podiatrist Foot & Ankle Surgery | DX: E11.42 Type 2 diabetes mellitus with diabetic polyneuropathy (principal); L60.3 Nail dystrophy; E11.8 Type 2 diabetes mellitus with unspecified complications; R60.9 Edema, unspecified; G62.9 Polyneuropathy, unspecified; L03.031 Cellulitis of right toe; Z79.4 Long term (current) use of insulin | CPT/HCPCS: 11721; 99213 ==

== ENCOUNTER 2025-06-07 05:00 | Outpatient (RCR) | payer MEDICARE, OTHER, SELFPAY | END 2025-07-07 23:59 | disposition home or self-care (01) | LOC: SOT 05:00 | PROVIDERS: PCP Family Medicine; Visit Provider Orthopaedic Surgery Hand Surgery | DX: M19.041 Primary osteoarthritis, right hand (principal) | CPT/HCPCS: 97110; 97140 ==

== ENCOUNTER 2025-06-18 11:19 | Outpatient (CLI) | payer MEDICARE, OTHER, SELFPAY ==
--- NOTE | 2025-06-18 11:30 | XR_ITS ---
WS: [email or web address] Right knee, 3 views, 06/18/2025 Clinical Data: Knee pain/clicking with rotation Comparison: None. Findings: The right knee arthroplasty is in good position. No periprosthetic fractures or loosening is seen. The soft tissues are normal. XR/XR knee RT 3V* [id number] Impression: Right knee arthroplasty.
== END 2025-06-18 11:20 | disposition home or self-care (01) ==
PROVIDERS: PCP Family Medicine; Visit Provider Family Medicine
DX: M25.561 Pain in right knee (principal); E53.8 Deficiency of other specified B group vitamins; R35.0 Frequency of micturition; Z51.81 Encounter for therapeutic drug level monitoring; E55.9 Vitamin D deficiency, unspecified; Z96.651 Presence of right artificial knee joint
CPT/HCPCS: 73562; 80053; 82306; 82607; 84153

== ENCOUNTER 2025-07-08 05:00 | Outpatient (RCR) | payer MEDICARE, OTHER, SELFPAY | END 2025-08-06 23:59 | disposition home or self-care (01) | LOC: SOT 05:00 | PROVIDERS: PCP Family Medicine; Visit Provider Orthopaedic Surgery Hand Surgery | DX: M19.041 Primary osteoarthritis, right hand (principal) | CPT/HCPCS: 97022; 97110; 97140 ==

== ENCOUNTER 2025-07-17 12:28 | Oncology outpatient (recurring) (ONCR) | payer MEDICARE, OTHER, SELFPAY ==
[2025-07-10 14:33] LABS: Hematocrit 40.3 % (37-53); Hemoglobin 13.70 g/dL (11.27-16.99); Mean Corpuscular HGB Conc 34.0 g/dL (30-55); Mean Corpuscular Hemoglobin 32.5 pg (27-33); Mean Corpuscular Volume 95.5 fl (82-101); Nucleated Red Blood Cells % 0 %; Platelet Count 218 10^3/cmm (157-399); Red Blood Count 4.22 10^6/uL (3.85-5.65); White Blood Count 7.93 10^3/uL (3.29-11.43)
[2025-07-10 14:53] LABS: Alanine Aminotransferase 16 U/L (0-41); Albumin Level 4.2 g/dL (3.5-5.2); Alkaline Phosphatase 95 U/L (40-130); Anion Gap 15.5 (5-19); Aspartate Amino Transferase 20 U/L (0-40); Blood Urea Nitrogen 13 mg/dL (8-23); Calcium 8.9 mg/dL (8.5-10.5); Carbon Dioxide 29 mmol/L (22-29); Chloride 100 mmol/L (98-107); Globulin 2.8 g/dL (1.3-4.6); Glucose 134 mg/dL (65-115); Osmolality Calculated 292 mOsm/kg (285-295); Potassium 4.5 mmol/L (3.5-5.1); Sodium 140 mmol/L (136-145); Total Protein 7.0 g/dL (6.6-8.7)
[2025-07-11 06:10] LABS: PROTEIN, TOTAL 6.7 g/dL (6.1-8.1)
[2025-07-11 14:24] LABS: KAPPA LIGHT CHAIN, FREE, SERUM 26.4 mg/L (3.3-19.4); KAPPA/LAMBDA LIGHT CHAINS FREE 1.87 (0.26-1.65); LAMBDA LIGHT CHAIN, FREE, SERU 14.1 mg/L (5.7-26.3)
[2025-07-11 21:09] LABS: ALPHA 1 GLOBULIN 0.3 g/dL (0.2-0.3); ALPHA 2 GLOBULIN 0.8 g/dL (0.5-0.9); BETA 1 GLOBULIN 0.4 g/dL (0.4-0.6); BETA 2 GLOBULIN 0.4 g/dL (0.2-0.5)
[2025-07-14 07:04] LABS: Protein/Creatinine Ratio 0.145 (<0.100); Protein/Creatinine Ratio 145 mg/g creat (<100)
[2025-07-18 12:29] LABS: ALPHA-1-GLOBULINS 0 %; ALPHA-2-GLOBULINS 0 %; BETA GLOBULINS 0 %; GAMMA GLOBULINS 0 %
== END 2025-08-06 23:59 | disposition home or self-care (01) ==
PROVIDERS: PCP Family Medicine; Visit Provider Internal Medicine
DX: D80.8 Other immunodeficiencies with predominantly antibody defects (principal); I26.99 Other pulmonary embolism without acute cor pulmonale; I50.9 Heart failure, unspecified; I49.9 Cardiac arrhythmia, unspecified; G47.33 Obstructive sleep apnea (adult) (pediatric); E11.8 Type 2 diabetes mellitus with unspecified complications; E03.9 Hypothyroidism, unspecified; Z79.01 Long term (current) use of anticoagulants; N32.9 Bladder disorder, unspecified; Z86.718 Personal history of other venous thrombosis and embolism
CPT/HCPCS: 36415; 80053; 82232; 82570; 82784; 83615; 83883; 84155; 84165; 84166; 85025; 86334; 86335; 99214

== ENCOUNTER → 2025-08-08 08:52 | Outpatient (BNVA) | payer MEDICARE, OTHER, SELFPAY | PROVIDERS: PCP Family Medicine; Visit Provider Podiatrist Foot & Ankle Surgery | DX: E11.42 Type 2 diabetes mellitus with diabetic polyneuropathy (principal); L60.0 Ingrowing nail; L60.3 Nail dystrophy; R60.9 Edema, unspecified; G62.9 Polyneuropathy, unspecified; L03.031 Cellulitis of right toe; Z79.4 Long term (current) use of insulin | CPT/HCPCS: 11721; 11730; 11750; 99214; A6219; J9999 ==

== ENCOUNTER → 2025-08-12 09:57 | Outpatient (BNVA) | payer MEDICARE, OTHER, SELFPAY | PROVIDERS: PCP Family Medicine; Visit Provider Internal Medicine Cardiovascular Disease | DX: I11.0 Hypertensive heart disease with heart failure (principal); I50.32 Chronic diastolic (congestive) heart failure; I47.20 Ventricular tachycardia, unspecified; E78.5 Hyperlipidemia, unspecified; E11.9 Type 2 diabetes mellitus without complications; Z79.4 Long term (current) use of insulin; Z79.85 Long-term (current) use of injectable non-insulin antidiabetic drugs; G47.33 Obstructive sleep apnea (adult) (pediatric); Z99.89 Dependence on other enabling machines and devices; E66.9 Obesity, unspecified; Z68.41 Body mass index [BMI] 40.0-44.9, adult; Z79.01 Long term (current) use of anticoagulants; Z86.718 Personal history of other venous thrombosis and embolism; R06.02 Shortness of breath | CPT/HCPCS: 80048; 83880; 99214 ==

== ENCOUNTER → 2025-08-22 07:39 | Outpatient (BNVA) | payer MEDICARE, OTHER, SELFPAY | PROVIDERS: PCP Family Medicine; Visit Provider Podiatrist Foot & Ankle Surgery | DX: L60.8 Other nail disorders (principal); L60.3 Nail dystrophy; E11.8 Type 2 diabetes mellitus with unspecified complications; R60.9 Edema, unspecified; G62.9 Polyneuropathy, unspecified; L03.031 Cellulitis of right toe; L60.0 Ingrowing nail; E11.42 Type 2 diabetes mellitus with diabetic polyneuropathy; Z79.4 Long term (current) use of insulin | CPT/HCPCS: 99213 ==

== ENCOUNTER 2025-08-29 09:18 | Oncology outpatient (recurring) (ONCR) | payer MEDICARE, OTHER, SELFPAY ==
--- NOTE | 2025-08-29 09:30 | USCV_ITS ---
Tiff Prater Age: 75 Gender: M : 1950 Exam Date: 08/29/2025 09:08 Ordering Phys: Ranjit Sosa MD ([email or web address]) Technologist: CONCHA [place]am Location[place] [facility] [place]: HISTORY: PROCEDURES: FINDINGS: The veins were found to be easily compressible bilaterally Significant reflux was noted in the right popliteal vein, reflux time of 3.07-second. No deep vein reflux in the left side Interrogation of the superficial veins on the right side revealed significant reflux at the level of the mid greater saphenous vein and below-knee greater saphenous vein. The reflux time where 1.77 and 1.08 respectively, at a depth of 2.02 and 0.22 cm respectively. These venous segments were measuring 0.57 and 0.44 cm in diameter. On the left side, significant venous reflux were noted throughout the greater saphenous vein segments. The reflux times were. 2.96, 3.08, 3.39, 2.67 and 2.91 seconds at the level of the greater saphenous vein distal to SFJ, proximal, mid, distal and below-knee levels. These venous segments were at a depth of 1.35, 1.72, 1.36, 0.47 and 0.31 cm respectively from the surface. These venous segments are measuring 0.91, 0.68, 0.75, 0.51 and 0.5 cm respectively. CONCLUSIONS 1. No evidence of DVT in the above-mentioned identifiable veins 2. Significant deep venous reflux on the right side, at the level of the popliteal vein as mentioned above 3. Significant venous reflux of greater than 500 ms were noted on the right side, at the level of the mid greater saphenous vein and below- knee greater saphenous vein on the right side. But the below-knee segment was very superficial. Details as mentioned above. 3. Significant venous reflux of greater than 500 ms were noted on the left side at the level of the distal to SFJ, proximal, mid, distal and below-knee segments of the greater saphenous vein. However the distal and below-knee segments of the greater saphenous vein were found to be very superficial. The details are as mentioned above Dr Ranjit Sosa MD [facility] (Electronically Signed) Final Date: 31 August 2025 11:55 S
== END 2025-09-06 23:59 | disposition home or self-care (01) ==
LOC: RAD 09:19 → ONCMED 09:23
PROVIDERS: PCP Family Medicine; Visit Provider Internal Medicine
DX: D80.8 Other immunodeficiencies with predominantly antibody defects (principal); I26.99 Other pulmonary embolism without acute cor pulmonale; I50.9 Heart failure, unspecified; I49.9 Cardiac arrhythmia, unspecified; G47.33 Obstructive sleep apnea (adult) (pediatric); E11.8 Type 2 diabetes mellitus with unspecified complications; E03.9 Hypothyroidism, unspecified; Z79.01 Long term (current) use of anticoagulants; N32.9 Bladder disorder, unspecified; Z86.718 Personal history of other venous thrombosis and embolism; E55.9 Vitamin D deficiency, unspecified; D50.9 Iron deficiency anemia, unspecified; E53.8 Deficiency of other specified B group vitamins; R06.02 Shortness of breath
CPT/HCPCS: 93970

== ENCOUNTER 2025-09-18 08:18 | Emergency (ER) | payer MEDICARE, OTHER, SELFPAY ==
[2025-09-18 08:18] VITALS: BP 130/62; PULSE 60; RESP 18; TEMP 36.7; O2SAT 97; BMI 41.3
--- NOTE | 2025-09-18 08:20 | XR_ITS ---
WS: [email or web address] Exam: XR hip RT 2-3V wo/w pel* [id number] Date/Time of Exam: 09/18/2025 8:26 AM Reason For Exam: Pain No obvious acute fracture. Mild DJD of the joint compartment. Normal soft tissues. XR/XR hip RT 2-3V wo/w pel* [id number] IMPRESSION: 1. No obvious fracture.
--- OUTSIDE RECORDS SUMMARY | 2025-09-18 08:25 | XMS_ITS | Encounter Summary ---
Author Organization [facility] Address [address] 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
--- OUTSIDE RECORDS SUMMARY | 2025-09-18 08:25 | XMS_ITS | Encounter Summary ---
Author Organization [facility] Address [address] [place] [address] Care Team Providers Care Pai Gow Dealer Name Role Phone Rupesh Vargas MD Primary Care Provider [phone]- [phone] Encounter Details Date Type Department Care Team (Late st Contact Info) Description 06/29/2000 Inpatient Historical [facility] Laboratory Services [place] [address] [address] Fely Sommers MD [address] [place] [address] Type II or unspecified type diabetes mellitus without mention of complication, uncontrolled (Primary Dx) Social History Tobacco Use Types Packs/Day Years Used Date Smoking Tobacco: Never Assessed Sex and Gender Information Value Date Recorded Sex Assigned at Not on file 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
--- OUTSIDE RECORDS SUMMARY | 2025-09-18 08:25 | XMS_ITS | Encounter Summary ---
Author Organization [facility] Address [address] [place] [address] Care Team Providers Care Material Controller Name Role Phone Rupesh Vargas MD Primary Care Provider [phone]- [phone] Encounter Details Date Type Department Care Team (Late st Contact Info) Description 10/23/1997 Emergency 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
--- OUTSIDE RECORDS SUMMARY | 2025-09-18 08:25 | XMS_ITS | Patient Health Record ---
Author Organization [facility] Address [address] [address] Care Team Providers Care Cripple Chaser Name Role Phone MASON GONZALEZ Primary Care Provider Reason For Referral No Information Problems Problem Type SNOMED Code ICD Code Onset Dates Problem Status W/U Status Risk Notes Problem Morbid obesity (824941968) Morbid obesity (278.01) Active confirmed [id number] -Snomed Descriptio n:Morbid obesity, NOS Plan Of Treatment No Information
--- OUTSIDE RECORDS SUMMARY | 2025-09-18 08:25 | XMS_ITS | Encounter Summary ---
Author Organization [facility] Address [address] 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
--- OUTSIDE RECORDS SUMMARY | 2025-09-18 08:25 | XMS_ITS | Encounter Summary ---
Author Organization [facility] Address [address] [place] [address] Care Team Providers Care Director Sales And Trade Marketing Name Role Phone Unavailable Primary Care Provider Unavailabl e Encounter Details Date Type Department Care Team (Late Contact Info) Description 09/09/2025 Orders Only [facility] [address] [place] [address] Randolph Lundy MD [address] [place] [address] Social History Tobacco Use Types Packs/Day Years Used Date Smoking Tobacco: Never Smokeless Tobacco: Never Alcohol Use Standard Drinks/Week Comments No 0 (1 standard drink = 0.6 oz pur e alcohol) Feeling Safe Answer Date Recorded Are you in a relationship wi th someone who hurts you emotionally and/or physically? No 05/03/2025 Sex and Gender Information Value Date Recorded Sex Assigned at Not on file Legal Sex Male 2:26 AM [employer] Gender Identity Not on file Sexual Orientation Not on file documented as of this encounter Plan of Treatment Upcoming Encounters Date Type Department Care Team (Late Contact Info) Description 09/25/2025 1:10 PM [employer] Office Visit [place] [facility] [address] [place] [address] Randolph Lundy MD [address] [place] [address] 09/27/2025 3:10 PM [employer] Office Visit [facility] Endocrinology [facility] [address] [place] [address] Nevin Walker PA [address] [place] [address] 11/04/2025 1:10 PM [employer] Office Visit [facility] Facial Plastic Surgery- [place] [address] [place] [address] Mak Serrato MD [address] [place] [address] 11/15/2025 1:00 PM [employer] Office Visit [facility] Ophthal[facility] [place] [address] [place] [address] Bharath Clark, [facility] [address] [place] [address] 12/23/2025 10:30 AM [employer] Office Visit [facility] Endocrinology [facility] [address] [place] [address] Kulwinder Cutler MD [address] [place] [address] 01/17/2026 10:20 AM CDT Office Visit [facility] Rheumatology- [place] [address] [place] [address] Charo Ramos PA [address] [place] [address] documented as of this encounter Visit Diagnoses Not on filedocumented in this encounter
--- OUTSIDE RECORDS SUMMARY | 2025-09-18 08:25 | XMS_ITS | Clinical Summary ---
Author Organization [facility] Address [address] [place] [address] Phone Care Team Providers Care Elastic Attacher Overlock Name Role Phone Unavailable Primary Care Provider Unavailabl e Allergies Active Allergy Reactions Criticality Noted Date Comments Amoxicillin Anaphylaxis,Shortnes s of Breath/Wheezing High 01/30/2015 Chlorhexidine Rash,Itching Low 03/09/2021 Meloxicam Swelling Low 12/19/2017 Sulfamethoxazole-Trimeth oprim Hives,Swelling,Jhonatan ns Kulwinder Syndrome High 01/15/2022 Lip Swelling / Raw Skin Medications docusate sodium (COLACE) 100 mg capsule Take 100 mg by mouth 2 times daily as needed. 05/08/20 20 Active acetaminophen (TYLENOL ARTHRITIS) 650 mg Extended Release tablet Take 1,300 mg by mouth 2 times daily as needed. 05/01/20 20 Active polyethylene glycol 3350 (MIRALAX) 17 gram/dose Powder Take 17 Grams by mouth 1 time daily as needed. 05/08/20 20 Active isosorbide mononitrate (IMDUR) 30 mg Extended Release 24 hour tablet Take 30 mg by mouth daily. 05/22/20 21 Active glucagon (GlucaGen HypoKit) 1 mg Recon Soln Inject 1 mg by subcutaneous injection. Has never used 01/31/20 20 Active rOPINIRole (REQUIP) 3 mg Tablet Take 3 mg by mouth daily at bedtime. 08/11/20 21 Active MULTIVITAMIN ORAL Take 1 Tablet by mouth daily. 02/25/20 21 Active buPROPion HCL (WELLBUTRIN XL) 300 mg Extended Release 24 hour tablet Take 300 mg by mouth daily. 01/18/20 Active losartan (COZAAR) 100 mg tablet Take 100 mg by mouth daily. 11/09/19 Active omeprazole (PriLOSEC) 20 mg Capsule, Delayed Release(E.C.) Take 1 Capsule (20 mg) by mouth daily at bedtime. 60 Capsule 1 07/02/20 22 Active cetirizine (ZyrTEC) 10 mg tablet Take 10 mg by mouth daily. 12/15/19 23 Active albuterol (PROVENTIL,RICCO OBINNA) 2.5 mg /3 mL (0.083 %) Solution for Nebulization TAKE 3 ML BY NEBULIZATION EVERY 6 HOURS NEEDED FOR WHEEZING. 07/14/20 23 Active CHOLECALCIFEROL, VITAMIN D3, ORAL Take 50 mcg by mouth daily. 10/12/20 23 Active triamcinolone acetonide (KENALOG) 0.1 % Ointment APPLY TOPICALLY TO TRUNK AND EXTREMITIES TWICE DAILY NEEDED 11/23/19 24 Active folic acid (FOLVITE) 1 mg tablet Take 1 Tablet (1 mg) by mouth daily. 90 Tablet 6 03/20/20 24 Active Syringe with Needle, Disp, (Monoject TB Safety Syringe) 1 mL 25 gauge x 5/8 Syringe Use for the administration of MTX. 50 Each 06/21/20 24 Active metoprolol succinate (TOPROL XL) 50 mg Extended Release 24 hour tablet Take 50 mg by mouth daily. 09/03/20 Active Eliquis 5 mg tablet Take 5 mg by mouth 2 times daily. 12/17/19 Active semaglutide (Ozempic) 2 mg/dose (8 mg/3 mL) Pen Injector Inject 2 mg by subcutaneous injection every 7 days. 9 mL 3 03/26/20 Active gabapentin (NEURONTIN) 300 mg capsule Take 1 Capsule (300 mg) by mouth 3 times daily. 270 Capsule 3 03/26/20 Active azithromycin (AzaSite) 1 % solution Administer 1 Drop in right eye. 09/03/20 24 Active metoclopramide HCl (REGLAN) 10 mg tablet Take 10 mg by mouth daily. 02/03/20 Active levothyroxine 200 mcg tablet Take 1 Tablet (200 mcg) by mouth daily in the morning. 100 Tablet 3 04/26/20 25 Active solifenacin (VESICARE) 5 mg Tablet Take 1 Tablet (5 mg) by mouth daily. 90 Tablet 3 04/30/20 25 Active tamsulosin (FLOMAX) 0.4 mg capsule Take 0.4 mg by mouth daily. 04/20/20 25 Active ezetimibe (ZETIA) 10 mg tablet Take 10 mg by mouth daily. 02/20/20 25 Active cephALEXin (KEFLEX) 500 mg capsule Take 1 Capsule by mouth 3 times daily. 04/19/20 25 Active ferrous sulfate (SLOW RELEASE IRON) 142 mg (45 mg iron) Tablet Sustained Release Take 142 mg by mouth daily. 10/12/20 23 Active furosemide (LASIX) 40 mg tablet Take 80 mg by mouth daily. 10/07/20 24 Active Restasis 0.05 % emulsionIndicati ons:Dry eye syndrome of both eyes INSTILL 1 DROP INTO BOTH EYES TWICE DAILY 120 Each 5 05/06/20 25 Active epinastine (ELESTAT) 0.05 % solution Q12H 07/17/20 25 Active prednisoLONE acetate (PRED FORTE) 1 % suspension Administer 1 Drop in both eyes 2 times daily. 10 mL 4 08/08/20 25 Active tiZANidine (ZANAFLEX) 4 mg Tablet TAKE 1 TABLET BY MOUTH EVERY 8 HOURS NEEDED FOR SPASM OR PAIN 90 Tablet 1 08/13/20 25 Active methotrexate (RHEUMATREX) 2.5 mg TabletIndication s:Seronegative rheumatoid arthritis ([facility]/HCC) TAKE 8 TABLETS BY MOUTH EVERY 7 DAYS 102 Tablet 08/13/20 25 Active insulin lispro (HumaLOG U-100 Insulin) 100 unit/mL vialIndications: Uncontrolled type 2 diabetes mellitus with hyperglycemia, with long-term current use of insulin ([facility]) INFUSE THROUGH INSULIN PUMP. AVERAGE DAILY DOSE OF 140 UNITS 40 mL 11 09/03/20 25 Active HumaLOG U-100 Insulin 100 unit/mL vial INFUSE THROUGH INSULIN PUMP. AVERAGE DAILY DOSE OF 140 UNITS 40 mL 11 06/14/20 25 025 Discontin ued(Reord er) Active Problems Problem Noted Date Diagnosed Date Mixed stress and urge urinary incontinence 10/12 Vitamin D deficiency 10/12/2023 Iron deficiency anemia due to chronic blood loss 06/15/2023 Degenerative lumbar spinal stenosis 06/14/2023 Stage 3a chronic kidney disease 11/24/2022 Cervical spinal stenosis 09/02/2022 Moderate persistent asthma without complication 06/24/2022 Rheumatoid arthritis of [facility] with negative rheumatoid factor 05/24/2022 Syphilis, late latent 11/18/2021 Paroxysmal supraventricular tachycardia 07/06/20 21 Right bundle branch block 05/22/2021 Ventricular tachycardia 05/22/2021 Left ventricular hypertrophy 05/12/2021 Peripheral edema 01/19/2021 Erectile dysfunction due to diseases classified elsewhere 09/15/2020 Chronic diastolic congestive heart failure 07/27 Overview (11/04/2023): Last Assessment & Plan: Recent Lab Results Lab Units 06/01/23 1549 06/01/23 1250 06/01/23 1250 05/30/23 0703 POTASSIUM SERUM mmol/L 4.5 < > 5.1 4.5 CREATININE mg/dL 1.32* -- 1.47* 1.00 < > = values in this interval not displayed. BP Min: 111/65 Min taken time: 06/01/23 1615 Max: 140/72 Max taken time: 06/01/23 1400 Pulse Min: 61 Min taken time: 06/01/23 1630 Max: 77 Max taken time: 06/01/23 1345 Continue home medications Obstructive sleep apnea 03/27/2019 Recurrent major depressive disorder, in partial remission 03/02/2019 Postoperative hypothyroidism 02/14/2018 Diabetic peripheral neuropathy 11/15/2017 Graves' disease with exophthalmos 04/21/2017 Wade light chain disease 03/24/2017 Asthma 06/28/2016 Overview (11/04/2023): Last Assessment & Plan: Continue home medication and adjust as needed. Cobalamin deficiency 06/28/2016 Hyperlipidemia 06/28/2016 Overview (11/04/2023): Last Assessment & Plan: Continue home medications Sensorineural hearing loss 06/28/2016 Restless legs 03/07/2015 Morbid obesity with BMI of 40.0-44.9, adult 11/2014 Hypertension 03/07/2015 Diabetes mellitus type 2, controlled, without co mplications 03/07/2015 Chronic bronchitis 03/07/2015 GERD (gastroesophageal reflux disease) 5 Resolved Problems Problem Noted Date Diagnosed Date Resolved Date Trigger middle finger of right hand 02/29/2024 03/28/2024 Oropharyngeal dysphagia 08/02/202303/08 Hyponatremia 06/17/2023 03/28/2024 History of lumbosacral spine surgery 06/14/2023 03/28/2024 Elevated CK 11/24/2022 03/28/2024 Uncontrolled diabetes mellit us with hyperglycemia 09/02/2022 03/28/2024 Cervical spondylosis 07/22/2022 024 Left carpal tunnel syndrome 07/07/2022 03/28/2024 Cubital tunnel syndrome on left 07/07/2022 03/28/2024 Right foot pain 02/01/2022 03/28/2024 S/P reverse total shoulder arthroplasty, left 12/23/1903/28/2024 Rotator cuff arthropathy of left shoulder 10/28/2021 03/28/2024 Degenerative joint disease of shoulder region 10/28/2003/28/2024 Hepatic lesion 07/21/2021 03/28/2024 Pain in both lower extremities 05/22/2021 03/28/2024 Shortness of breath 05/22/2021 03/28/20 24 Swelling 05/22/2021 03/28/2024 Syncope and collapse 05/22/2021 024 Nonrheumatic mitral valve regurgitation 05/12/2021 03/28/2024 Nonrheumatic tricuspid valve regurgitation 05/12/2021 03/28/2024 PVC's (premature ventricular contractions) 05/12/2021 03/28/2024 Bursitis of right shoulder 04/23/2021 0 03/28/2024 Arthritis of left shoulder region 03/25/2021 03/28/2024 S/P arthroscopy of right shoulder 03/25/2021 03/28/2024 Hoarseness 03/10/2021 03/28/2024 Tinea corporis 03/10/2021 03/28/2024 Shoulder pain 02/24/2021 03/28/2024 Closed fracture of base of f ifth metatarsal bone of left foot at metaphyseal-diaphyseal junction 11/19/2020 03/28/2024 Microscopic hematuria 05/01/20202023 Chest pain 08/19/2019 03/28/2024 Onychomycosis 06/01/2019 03/28/2024 Primary osteoarthritis invol ving multiple joints 06/01/2019 03/28/2024 Tinea cruris 07/19/2018 03/28/2024 Family history of colonic polyps 07/18/2018 03/28/2024 Polymyalgia rheumatica 01/02/201803/28 Overview (11/04/2023): Last Assessment & Plan: Tiff is having no problems with his polymyalgia rheumatica, and is been on 4 mg of prednisone a day. We will decrease it to 3 mg of prednisone daily. Allergic rhinitis 11/15/2016 03/28/2024 Acanthosis nigricans 06/28/2016 024 Chronic midline low back jake n without sciatica 06/28/2016 03/28/2024 Morbid obesity 06/28/2016 03/28/2024 Overview (11/04/2023): Last Assessment & Plan: Obesity is unchanged. Diastasis recti 06/28/2016 03/28/2024 Trigger thumb of left hand 06/28/2016 0 03/28/2024 Encounters Date Type Department Care Team Description 09/09/2025 Orders Only [facility] [address] [facility] [id number] Randolph Lundy MD 09/03/[address] [facility] [address] [place] [address] Nevin Walker PA Uncontrolled type 2 diabetes mellitus with hyperglycemia, with long-term current use of insulin ([facility]) (Primary Dx) 09/02/2025 Orders Only [facility] [address] [place] [address] Charo Ramos PA High risk medication use 08/16/2025 1:00 PM CDT Office Visit [facility] [place] [address] [place] [phone] Bharath Clark, SENIOR COMMISSARY AGENT Hx of cornea transplant (Primary Dx); Dry eye syndrome of both eyes; Keratoconus of both eyes; Lagophthalmos of both lower eyelids 08/12/2025 Refill [facility] [address] [place] [address] Charo Ramos PA Seronegative rheumatoid arthritis (CMS/HCC) 08/12/2025 Refill [facility] [address] [place] [address] Crys Mendenhall MD 08/08/[address] [facility] [place] [address] [phone] Hanna Dietrich, COA 07/19/2025 10:20 AM CDT Office Visit [place] [address] [place] [phone] Charo Ramos PA Seronegative rheumatoid arthritis ([facility]/HCC) (Primary Dx); High risk medication use; Primary osteoarthritis involving multiple joints 07/18/2025 10:30 AM CDT Office Visit [facility] [place] [address] [phone] Bharath Clark, SENIOR COMMISSARY AGENT Dry eye syndrome of both eyes (Primary Dx); Hx of cornea transplant; Keratoconus of both eyes; Lagophthalmos of both lower eyelids; Exophthalmos 06/22/2025 Results [facility] [address] [place] [phone] Kulwinder Cutler MD HEMOGLOBIN A1C, LIPID PANEL 06/21/2025 10:10 AM CDT Office Visit [facility] [address] [place] [address] Nevin Walker PA Uncontrolled type 2 diabetes mellitus with hyperglycemia, with long-term current use of insulin ([facility]) (Primary Dx); Morbid obesity with BMI of 40.0-44.9, adult ([facility]); Diabetic polyneuropathy associated with type 2 diabetes mellitus ([facility]); Dyslipidemia; Postoperative hypothyroidism 06/19/2025 11:00 AM CDT Office Visit [facility] [address] [place] [phone] Randolph Lundy MD Degenerative arthritis of middle finger of right hand (Primary Dx) 06/19/2025 10:05 AM CDT Ancillary Procedure [facility] [address] [place] [phone] Randolph Lundy MD Degenerative arthritis of middle finger of right hand from Last 3 Months Immunizations Immunization Administration Dates Next Due (Desktime)(12 YR UP) COVID-19 VACCINE - EMERGENCY USE AUTHORIZATION, MRNA, [id number](PF) 30 MCG/0.3 ML IM SUSP 07/21/2021,11/12/2020,10/23/2020 (PNEUMOVAX 23)(50 YRS UP) PN EUMOCOCCAL POLYSACCHARIDE (PPV23) 0.5 ML, IM 04/21/2017,03/07/2013 (PREVNAR 13)(6 WKS UP) PNEUM OCOCCAL CONJUGATE (PCV13) 0.5 ML, IM 08/04/2015 (SHINGRIX)(50 YRS UP) ZOSTER VACCINE RECOMBINANT, 0.5 ML, IM 10/02/2018 Influenza Seasonal Unspecifi ed Formulation IM 07/21/2021,09/05/2014 Pneumococcal conjugate, unsp ecified formulation 03/07/2013 Zoster Vaccine Live SQ 09/02/2012 Family History Medical History Relation Name Comments Diabetes Brother 1 Violetta Prater diet controlled Hypertension Brother 1 Violetta Prater Hypertension Brother 2 Latesha Prater Diabetes Brother 3 Baltazar Prater insulin dependa nt Hypertension Brother 3 Baltazar Prater Hypertension Brother 4 Jaden Prater Diabetes Brother 5 Latesha Prater Healthy Brother 5 Latesha Prater Hypertension Brother 5 Latesha Council Hypertension Daughter Marisol Prater Fofana COPD Father HT Council Emphysema Father HT Council Heart Attack Father HT Council Heart Disease Father HT Council Hypertension Father HT Council Respiratory Disease Father HT Council Heart Failure Maternal Grandfather Nelson Mccullough Hypertension Maternal Grandfather Nelson Mccullough Diabetes Maternal Grandmother Lashanda Mccullough Hypertension Maternal Grandmother Lashanda Brown Stroke Maternal Grandmother Lashanda Mccullough Arthritis-osteo Mother Rosie Council Breast Cancer Mother Rosie Council Cancer Mother Rosie Council Diabetes Mother Rosie Council Heart Disease Mother Rosie Council Hepatitis Mother Rosie Council Hypertension Mother Rosie Council Rheumatoid Arthritis Mother Rosie Council Thyroid Cancer Mother Rosie Council Thyroid Disease Mother Rosie Council Heart Attack Paternal Grandfather Baltazar H Council Heart Disease Paternal Grandfather Baltazar H Council Hypertension Paternal Grandfather Baltazar H Council Hypertension Paternal Grandmother Mary Ann Prater Other Paternal Grandmother Mary Ann Prater afib Relation Name Status Comments Brother 1 Violetta Council Brother 2 Latesha Prater Alive Brother 3 Baltazar [place] Council Alive Brother 4 Jaden Prater Alive Brother 5 Latesha Prater Alive Daughter Marisol Fofana Alive Father HT Council Maternal Grandfather Nelson Mccullough Maternal Grandmother Lashanda Mccullough Mother Rosie Prater Paternal Grandfather Baltazar Prater Paternal Grandmother Mary Ann Prater Social History Tobacco Use Types Packs/Day Years Used Date Smoking Tobacco: Never Smokeless Tobacco: Never Tobacco Cessation:Counseling Given: Not Answered Alcohol Use Standard Drinks/Week Comments No 0 (1 standard drink = 0.6 oz pur e alcohol) Feeling Safe Answer Date Recorded Are you in a relationship wi th someone who hurts you emotionally and/or physically? No 05/03/2025 Sex and Gender Information Value Date Recorded Sex Assigned at Not on file Legal Sex Male 2:26 AM RING STRIKER Gender Identity Not on file Sexual Orientation Not on file Last Filed Vital Signs Vital Sign Reading Time Taken Comments Blood Pressure 122/88 07/19/2025 10:00 AM CDT Pulse 66 07/19/2025 10:00 AM CDT Temperature 36.7 C (98 F) 05/03/2025 10:30 AM CDT Respiratory Rate 15 05/03/2025 10:2 0 AM CDT Oxygen Saturation 95% 07/19/2025 10: 00 AM CDT Inhaled Oxygen Concentration - - Weight 129.1 kg (284 lb 9.6 oz) 025 10:00 AM CDT Height 172.7 cm (5' 8 ) 07/19/2025 10:0 0 AM CDT Body Mass Index 43.27 07/19/2025 10:00 AM CDT Plan of Treatment Upcoming Encounters Date Type Department Care Team (Late st Contact Info) Description 09/25/2025 1:10 PM RING STRIKER Office Visit [facility] [address] [place] [address] Randolph Lundy MD [address] [place] [address] 09/27/2025 3:10 PM RING STRIKER Office Visit [facility] [address] [place] [address] Nevin Walker PA [address] [place] [address] 11/04/2025 1:10 PM RING STRIKER [facility] [address] [place] [address] Mak Serrato MD [address] [facility] [address] [place] [address] 11/15/2025 1:00 PM RING STRIKER Office Visit [facility] [place] [address] [place] [address] Bharath Clark, [facility] [address] [place] [address] 12/23/2025 10:30 AM RING STRIKER Office Visit [facility] [address] [place] [address] Kulwinder Cutler MD [address] [place] [address] 01/17/2026 10:20 AM CDT Office Visit [facility] [address] [place] [address] Charo Ramos PA [address] [place] [address] Health Maintenance Due Date Last Done Comments Traditional Medicare (ACO) A nnual Wellness Visit 1969 RSV VACCINE (60+ or ) (1 - 1-dose 75+ series) 2024 DIABETES ANNUAL FOOT EXAM 06/07/2024 06/07/2023 INFLUENZA VACCINE (#1) 2025 , 07/23/2022, 07/21/2021, Additional history exists DIABETES ANNUAL RETINAL EXAM 06/22/2025, 06/22/2024, 06/22/2024, Additional history exists COVID-19 Vaccine (9 - Pfizer risk 2023- season) 2025 08/05/2024, 03/20/2024, 09/19/2023, Additional history exists DIABETES MICROALBUMIN ANNUAL SCREEN 09/12/2025 09/12/2024 DIABETES HBA1C Q 6 MONTHS 12/22/20252024, 03/19/2025, 03/19/2025, Additional history exists LDL CHOLESTEROL ANNUAL 06/21/2026 06/21/2025 DTAP/TDAP/TD VACCINES (3 - T d or Tdap) 10/26/2027 10/26/2017, 09/04/2012 ZOSTER VACCINE Completed 05/14/2023, 0512/2022, 10/02/2018, Additional history exists COLORECTAL SCREENING Discontinued 03/26/2024, 03/26/20 Colorectal Cancer Screening Discontinued PNEUMOCOCCAL VACCINE 50+ YEARS Completed 0 08/05/2024, 04/21/2017, 08/04/2015, Additional history exists FIT-DNA Q 3 years Discontinued FIT/FOBT Q 1 year Discontinued Flex Sig/CT Colonography Q 5 years Discontinued Medical Devices Implanted Type Area Environmental Manager Device Identifier Shelf Expiration Date Model / Serial / Lot Finger Mcp-30 - [id number] Implanted:Qty: 1 on 05/03/2025 by Randolph Lundy MD at [facility] Finger Right: Finger [employer] [id number] 07/13/2027 MCP-30 / / [id number] Screw Central Modular Rvrs 30mm Ar-9561-30s - [id number] Implanted:Qty: 1 on 12/07/2021 by Rupesh Garrido MD at [facility] Screw Left: Shoulder [employer] [id number] 05/06/2026 AR-9561- 30S / / [id number] Screw Peripheral Loc 5.5x20mm Ar-9563-20 - [id number] Implanted:Qty: 1 on 12/07/2021 by Rupesh Garrido MD at [facility] Screw Left: Shoulder [employer] [id number] 01/04/2026 AR-9563- 20 / / [id number] Screw Peripheral Loc 5.5x28mm Ar-9563-28 - [id number] Implanted:Qty: 1 on 12/07/2021 by Rupesh Garrido MD at [facility] Screw Left: Shoulder [employer] [id number] 05/06/2026 AR-9563- 28 / / [id number] Baseplate Modular +2 Lat 24mm Uf-1196-43-2 - [id number] Implanted:Qty: 1 on 12/07/2021 by Rupesh Garrido MD at [facility] Shoulder Left: Shoulder [employer] [id number] 06/06/2026 AR-9560- 24-2 / / [id number] Glenosphere Total Rvrs 39 +4 Lat/24 Lb-0982-6487-L at - [id number] Implanted:Qty: 1 on 12/07/2021 by Rupesh Garrido MD at [facility] Shoulder Left: Shoulder [employer] [id number] 07/07/2026 AR-9564- 2439-LA / / [id number] Stem Hum Unvrs Rvs Sz10 Ar-9501-10p - [id number] Implanted:Qty: 1 on 12/07/2021 by Rupesh Garrido MD at [facility] Shoulder Left: Shoulder [employer] [id number] 03/06/2026 AR-9501- 10P / / [id number] Liner Hum Unvrs Rvs 39 +3 Ar-9503m-03 - [id number] Implanted:Qty: 1 on 12/07/2021 by Rupesh Garrido MD at [facility] Shoulder Left: Shoulder [employer] [id number] 01/04/2026 AR-9503M -03 / / [id number] Cup Hum Univrs Rvrs 39 +2 Left Tr-1860n-66nsg c - [id number] Implanted:Qty: 1 on 12/07/2021 by Rupesh Garrido MD at [facility] Shoulder Left: Shoulder [employer] 07/07/2026 AR-9502F -39LCPC / / [id number] Bilateral Total Knee Insulin Pump/Glucose Meter In Buq Procedures Procedure Name Priority Date/Time Associated Diagnosis Comments LIPID PANEL Routine 06/21/2025 10:46 AM CDT Uncontrolled type 2 diabetes mellitus with hyperglycemia, with long-term current use of insulin ([facility]) Diabetic polyneuropathy associated with type 2 diabetes mellitus (CMS/HCC) HEMOGLOBIN A1C Routine 06/21/2025 10:46 AM CDT Uncontrolled type 2 diabetes mellitus with hyperglycemia, with long-term current use of insulin (CMS/HCC) Diabetic polyneuropathy associated with type 2 diabetes mellitus (CMS/HCC) COMPREHENSIVE METABOLIC PANEL Routine 06/21/2025 10:45 AM CDT High risk medication use CBC WITH DIFFERENTIAL Routine 06/21/2025 10:45 AM CDT High risk medication use XR FINGER(S) RIGHT Routine 06/19/2025 10 :10 AM CDT Degenerative arthritis of middle finger of right hand MICROALBUMIN/CREATINI NE RATIO, RANDOM UR Routine 09/12/2024 10:25 AM RING STRIKER Controlled type 2 diabetes mellitus without complication, with long-term current use of insulin ([facility]) HM DIABETES EYE EXAM Routine 06/22/2024 1:22 PM CDT from Last 3 Months or Most Recently Relevant to Health Maintenance Results * (ABNORMAL) HEMOGLOBIN A1C (06/21/2025 10:46 AM CDT) HEMOGLOBIN A1C 6.7(H) <5.7 % [facility] Comment: For someone without known diabetes, a hemoglobin A1c value of 6.5% or greater indicates that they may have diabetes and this should be confirmed with a follow-up test. For someone with known diabetes, a value <7% indicates that their diabetes is well controlled and a value greater than or equal to 7% indicates suboptimal control. A1c targets should be individualized based on duration of diabetes, age, comorbid conditions, and other considerations. Currently, no consensus exists regarding use of hemoglobin A1c for diagnosis of diabetes for children. ESTIMATED AVERAGE GLUCOSE (MG/DL) 146 mg/dL [facility] ESTIMATED AVERAGE GLUCOSE (MMOL/L) 8.1 mmol/L [facility] Comment: FASTING:NO FASTING: NO Test Performed at: [facility] [address] [facility] [place] [address] Tess Cabrera MD Blood 06/21/2025 10:4 6 AM CDT 06/21/2025 10:47 AM CDT Kulwinder Cutler MD CHEMISTRY ORDERABLES Final Res ult [facility] [phone] [facility] [address] [place] [address] * (ABNORMAL) LIPID PANEL (06/21/2025 10:46 AM CDT) CHOLESTEROL 196 <200 mg/dL [facility] HDL 53 > OR = 40 mg/dL [facility] TRIGLYCERIDE 246(H) <150 mg/dL [facility] Comment: If a non-fasting specimen was collected, consider repeat triglyceride testing on a fasting specimen if clinically indicated. Lele et al. J. of Clin. Lipidol. 2015;9:129-169. LDL CALCULATED 106(H) mg/dL (calc) [facility] Comment: Reference range: <100 Desirable range <100 mg/dL for primary prevention; <70 mg/dL for patients with CHD or diabetic patients with > or = 2 CHD risk factors. LDL-C is now calculated using the Erica calculation, which is a validated novel method providing better accuracy than the Friedewald equation in the estimation of LDL-C. Omega GARCIA et al. JOSEP. 2013;310(19): 4479-9682 (http://education.[employer]/faq/GHZ919) CHOL/HDL RATIO 3.7 <5.0 (calc) [facility] NON-HDL CHOLESTEROL 143(H) <130 mg/dL (calc) [facility] Comment: For patients with diabetes plus 1 major ASCVD risk factor, treating to a non-HDL-C goal of <100 mg/dL (LDL-C of <70 mg/dL) is considered a therapeutic option. FASTING:NO FASTING: NO Test Performed at: [facility] [address] [place] [address] Mak Albarran Blood 06/21/2025 10:4 6 AM CDT 06/21/2025 10:47 AM CDT us Kulwinder Cutler MD CHEMISTRY ORDERABLES Final Res ult [facility] [phone] [facility] [address] [place] [address] * CBC WITH DIFFERENTIAL (06/21/2025 10:45 AM CDT) WBC 7.0 3.8 - 10.8 Thousand/u L [facility] RBC 4.44 4.20 - 5.80 Million/uL [facility] HEMOGLOBIN 14.2 13.2 - 17.1 g/dL [facility] HEMATOCRIT 42.3 38.5 - 50.0 % [facility] MCV 95.3 80.0 - 100.0 fL [facility] MCH 32.0 27.0 - 33.0 pg [facility] MCHC 33.6 32.0 - 36.0 g/dL [facility] Comment: For adults, a slight decrease in the calculated MCHC value (in the range of 30 to 32 g/dL) is most likely not clinically significant; however, it should be interpreted with caution in correlation with other red cell parameters and the patient's clinical condition. RDW 13.7 11.0 - 15.0 % [facility] PLATELETS 212 140 - 400 Thousand/u L [facility] MPV 10.5 7.5 - 12.5 fL [facility] NEUTROPHIL ABSOLUTE 4,046 1,500 - 7,800 cells/uL [facility] RR LYMPHOCYTE ABSOLUTE 2,317 850 - 3,900 cells/uL [facility] RR MONOCYTE ABSOLUTE 490 200 - 950 cells/uL [facility] EOSINOPHIL ABSOLUTE 119 15 - 500 cells/uL [facility] RR BASOPHILS ABSOLUTE 28 0 - 200 cells/uL [facility] NEUTROPHIL 57.8 % [facility] LYMPHOCYTES 33.1 % [facility] RR MONOCYTE 7.0 % [facility] EOSINOPHILS 1.7 % [facility] RR BASOPHILS 0.4 % [facility] Comment: FASTING:NO FASTING: NO Test Performed at: [facility] [address] [place] [address] Mak Albarran Blood 06/21/2025 10:4 5 AM CDT 06/21/2025 10:45 AM CDT us Charo SUMNER HEMATOLOGY ORDERABLES Final Resu lt [facility] [phone] [facility] [address], [place] [address] * (ABNORMAL) COMPREHENSIVE METABOLIC PANEL (06/21/2025 10:45 AM CDT) GLUCOSE 119 65 - 139 mg/dL [facility] Comment: Non-fasting reference interval BUN 12 7 - 25 mg/dL [facility] CREATININE 0.97 0.70 - 1.28 mg/dL [facility] RR GFR 81 > OR = 60 mL/min/1. 73m2 [facility] BUN/CREAT RATIO SEE NOTE: 6 - 22 (calc) [facility] Comment: Not Reported: BUN and Creatinine are within reference range. SODIUM 139 135 - 146 mmol/L [facility] POTASSIUM 4.1 3.5 - 5.3 mmol/L [facility] CHLORIDE 99 98 - 110 mmol/L [facility] CO2 34(H) 20 - 32 mmol/L [facility] CALCIUM 8.9 8.6 - 10.3 mg/dL [facility] TOTAL PROTEIN 7.0 6.1 - 8.1 g/dL [facility] ALBUMIN 4.5 3.6 - 5.1 g/dL [facility] GLOBULIN 2.5 1.9 - 3.7 g/dL (calc) [facility] ALBUMIN/GLOBULIN RATIO 1.8 1.0 - 2.5 (calc) [facility] BILIRUBIN TOTAL 0.5 0.2 - 1.2 mg/dL [facility] ALKALINE PHOSPHATASE 75 35 - 144 U/L [facility] AST 20 10 - 35 U/L [facility] ALT 18 9 - 46 U/L [facility] Comment: FASTING:NO FASTING: NO Test [facility]formed [facility]: [facility] [address] [place] [address] Mak Albarran Blood 06/21/2025 10:4 5 AM CDT 06/21/2025 10:45 AM CDT us Charo SUMNER CHEMISTRY ORDERABLES Final Resul t [facility] [phone] [facility] [address] [place] [address] * XR FINGER(S) RIGHT (06/19/2025 10:10 AM CDT) Anatomical Region Laterality Modality Wrist / Hand Computed Radiogr aphy Narrative 06/20/2025 10:58 AM CDT AP and lateral views of the hand show good position of the implant of the middle finger MP joint. The adjacent fingers are spared of any osteoarthritis. us Randolph Lundy MD DIAGNOSTIC IMAGING ORDShayy COLEY Final Result * MICROALBUMIN/CREATININE RATIO, RANDOM UR (09/12/2024 10:25 AM RING STRIKER) Creatinine, Urine 30 20 - 320 mg/dL [facility] MICROALBUMIN, URINE <0.2 See Note: mg/dL [facility] Comment: Reference Range: Reference Range Not established MICROALBUMIN/CREAT RATIO, UR NOTE <30 mg/g creat [facility] Comment: NOTE: The urine albumin value is less than 0.2 mg/dL therefore we are unable to calculate excretion and/or creatinine ratio. The ADA defines abnormalities in albumin excretion as follows: Albuminuria Category Result (mg/g creatinine) Normal to Mildly increased <30 Moderately increased 30-299 Severely increased > OR = 300 The ADA recommends that at least two of three specimens collected within a 3-6 month period be abnormal before considering a patient to be within a diagnostic category. FASTING:NO FASTING: NO Test [facility]formed [facility] [address] [address] [phone] Tess Cabrera MD Urine URINE SPECIMEN OBTAINED BY CLEAN CATCH PROCEDURE / Unknown 09/12/2024 10:25 AM RING STRIKER 09/12/2024 10:25 AM RING STRIKER Nevin Shore Clair BURAK URINE ORDERABLES Final Result [facility] [phone] [facility] [address] [address] [phone] * (ABNORMAL) DIABETES EYE EXAM (06/22/2024 1:22 PM CDT) us Abstract Provider HEALTH MAINTENANCE Edited Resu lt - Final from Last 3 Months or Most Recently Relevant to Health Maintenance Insurance MEDICARE PART A AND B [facility] LIFE INS SUPP JOSE WILLAMS [id number] Advance Directives For more information, please contact: [phone] * Full Code (Latest Code Status on File) Date Activated Date Inactivated Comments 12/07/2021 11:50 AM 12/08/2021 6:02 PM * Full Code Date Activated Date Inactivated Comments 12/07/2021 6:55 AM 12/07/2021 11:50 AM * Full Code Date Activated Date Inactivated Comments 12/07/2021 6:55 AM 12/07/2021 6:55 AM
--- OUTSIDE RECORDS SUMMARY | 2025-09-18 08:25 | XMS_ITS | Clinical Summary ---
Author Organization [facility] n Address [address] [place] [address] Phone Care Team Providers Care Dicer Operator Name Role Phone Rupesh Vargas MD Primary Care Provider Allergies Active Allergy Reactions Criticality Noted Date Comments Amoxicillin Anaphylaxis High 01/30/2015 Chlorhexidine Itching Low 03/09/2021 Hydrocodone Nausea and Vomiting Low 08/22/2014 Meloxicam Swelling Low 12/19/2017 Medications potassium chloride (KLOR-CON) 10 mEq Extended Release tablet Take 10 mEq by mouth Tuesday, tue & Tuesday . Active furosemide (LASIX) 80 mg tablet Take by mouth. 0 Active atorvastatin (LIPITOR) 20 mg tablet TAKE 1 TABLET BY MOUTH DAILY 0 Active losartan (COZAAR) 100 mg tablet TAKE 1 TABLET BY MOUTH DAILY 0 Active citalopram (CeleXA) 40 mg tablet Take 40 mg by mouth. 0 Active levothyroxine 175 mcg tablet Take 1 Tablet by mouth. 0 Active gabapentin (NEURONTIN) 300 mg capsule Take 2 Capsules by mouth daily at bedtime. 0 Active rOPINIRole (REQUIP) 1 mg tablet Take 1 Tablet by mouth daily at bedtime. 0 Active dulaglutide (Trulicity) 1.5 mg/0.5 mL injection 0 Active docusate sodium (COLACE) 100 mg capsule Take 100 mg by mouth. 0 Active glucagon human recombinant (GlucaGen HypoKit) 1 mg Recon Soln USE DIRECTED FOR SEVERE HYPOGLYCEMIA 0 Active insulin lispro (HumaLOG) 100 unit/mL vial Inject 1 Units by subcutaneous injection. 0 Active multivitamin (DAILY-GREG) tablet Take 1 Tablet by mouth. Active insulin aspart U-100 (NovoLOG U-100 Insulin aspart) 100 unit/mL vial 0 Active oxyCODONE-aceta minophen (PERCOCET) 7.5-325 mg TabletIndicatio ns:S/P arthroscopy of left shoulder Take 1 Tablet by mouth every 4 hours as needed for Pain, Moderate. Max Daily Amount: 6 Tablets 40 Tablet 1 Active clindamycin HCL (CLEOCIN) 300 mg Capsule Take 1 Capsule (300 mg) by mouth 3 times daily. 21 Capsule 1 Active furosemide (LASIX) 40 mg tablet Take 40 mg by mouth. 1 Active oxyCODONE-aceta minophen (PERCOCET) 7.5-325 mg TabletIndicatio ns:S/P arthroscopy of right shoulder Take 1 Tablet by mouth every 4 hours as needed for Pain, Moderate. Max Daily Amount: 6 Tablets 40 Tablet 1 Active Active Problems Problem Noted Date Diagnosed Date Bursitis of right shoulder 04/23/2021 Arthritis of left shoulder region 03/25/2021 S/P arthroscopy of left shoulder 03/25/2021 Shoulder pain 02/24/2021 Chronic bronchitis 03/07/2015 Hypertension 03/07/2015 Diabetes mellitus type 2, controlled, without co mplications 03/07/2015 Restless legs 03/07/2015 Morbid obesity with BMI of 40.0-44.9, adult 0511/2014 GERD (gastroesophageal reflux disease) 5 Immunizations Immunization Administration Dates Next Due Influenza Seasonal Unspecified Formulation IM Pneumococcal conjugate, unspecified formulation 03/07/2013 Family History Medical History Relation Name Comments Healthy Brother 1 Hypertension Brother 2 Diabetes Brother 3 insulin dependa nt Hypertension Brother 4 Diabetes Brother 5 diet controlled COPD Father Emphysema Father Heart Attack Father Heart Disease Father Hypertension Father Heart Failure Maternal Grandfather Diabetes Maternal Grandmother Hypertension Maternal Grandmother Stroke Maternal Grandmother Breast Cancer Mother Diabetes Mother Thyroid Cancer Mother Other Other lung disease ri ght ll removed due to tobacco exposure Heart Attack Paternal Grandfather Heart Disease Paternal Grandfather Hypertension Paternal Grandmother Other Paternal Grandmother afib Relation Name Status Comments Brother 1 Alive Brother 2 Alive Brother 3 Alive Brother 4 Alive Brother 5 Father Maternal Grandfather Maternal Grandmother Mother Other Paternal Grandfather Paternal Grandmother Social History Tobacco Use Types Packs/Day Years Used Date Smoking Tobacco: Never Smokeless Tobacco: Never Alcohol Use Standard Drinks/Week Comments No 0 (1 standard drink = 0.6 oz pur e alcohol) Sex and Gender Information Value Date Recorded Sex Assigned at Not on file Legal Sex Male 12:04 PM [employer] Gender Identity Not on file Sexual Orientation Not on file Last Filed Vital Signs Vital Sign Reading Time Taken Comments Blood Pressure 102/61 05/04/2021 8:48 AM CDT Pulse 65 05/04/2021 8:48 AM CDT Temperature 36.7 C (98 F) 05/04/2021 8:48 AM CDT Respiratory Rate 21 05/04/2021 8:48 AM CDT Oxygen Saturation 91% 05/04/2021 8:48 AM CDT Inhaled Oxygen Concentration - - Weight 133.4 kg (294 lb) 05/04/2021 7:02 AM CDT Height 172.7 cm (5' 8 ) 05/04/2021 7:02 AM CDT Body Mass Index 44.7 05/04/2021 7:02 AM CDT Plan of Treatment Health Maintenance Due Date Last Done Comments DIABETES ANNUAL RETINAL EXAM 1967 DIABETES MICROALBUMIN ANNUAL SCREEN 1968 LDL CHOLESTEROL ANNUAL 1967 ZOSTER VACCINE (1 of 2) 1968 DIABETES HBA1C Q 6 MONTHS 07/23/2021 01/20/2021 DIABETES ANNUAL FOOT EXAM 11/19/2021 11/19/2020 RSV VACCINE (60+ or ) (1 - 1-dose 75+ series) 2024 INFLUENZA VACCINE (#1) 2025 , 07/31/2019, 07/19/2018, Additional history exists DTAP/TDAP/TD VACCINES (3 - T d or Tdap) 10/26/2027 10/26/2017, 09/04/2012 PNEUMOCOCCAL VACCINE 50+ YEARS Completed 0 04/21/2017, 04/21/2017, 08/04/2015, Additional history exists Medical Devices Implanted Type Area Servicenow Administrator Device Identifier Shelf Expiration Date Model / Serial / Lot Bilateral Total Knee Insulin Pump/Glucose Meter In Buq Insurance MEDICARE PART A AND B [facility] Advance Directives For more information, please contact: [phone] Documents on File Type Date Recorded Patient Manager Medicare Expl anation Advance Directive POA 05/25/2012 Advanc e Directive POA * Full Code (Latest Code Status on File) Date Activated Date Inactivated Comments 05/04/2021 6:50 AM 05/04/2021 11:00 AM * Full Code Date Activated Date Inactivated Comments 03/09/2021 5:53 AM 03/09/2021 10:48 AM Care Teams Dicer Operator Relationship Specialty Start Date End Date Rupesh Vargas MD [address] [place] [id number] PCP - General Family Practice 01/28/15
--- NOTE | 2025-09-18 08:50 | W.ED.EXTPRO ---
HPI - Extremity Problem General: Chief complaint: Extremity Problem,Nontraumatic Stated complaint: RT Hip Pain Time Seen by Provider: 09/18/25 08:19 History of Present Illness: 75-year-old male presents emergency room with complaint of right hip pain. He was laying in bed he rolled over to his left side felt sharp pain with pain radiating down the right leg from the right hip. No recent falls or trauma. He has had problems with low back pain and sciatica pain. Denies dysuria urgency or frequency no hematuria. No bulge in the groin no vomiting diarrhea. No previous back surgery. No fecal incontinence urinary retention or saddle paresthesias. Associated symptoms: Deny chest pain, fever(s) or rash Related Data Home Medications ?Medication ?Instructions ?Recorded ?Confirmed acetaminophen 650 mg 650 mg PO Q8H 06/18/24 09/17/25 tablet,extended release (Tylenol Arthritis Pain) albuterol sulfate 2.5 mg/3 mL 2.5 mg inhalation Q6H PRN 06/18/24 09/17/25 (0.083 %) solution for nebulization shortness of breath or wheezing docusate sodium 100 mg capsule 100 mg PO DAILY PRN Constipation 06/18/24 09/17/25 (Colace) insulin lispro 100 unit/mL 140 unit continuous subcutaneous 06/18/24 09/17/25 subcutaneous solution (Humalog infusion DAILY U-100 Insulin) levothyroxine 200 mcg tablet 200 mcg PO DAILY 06/18/24 09/17/25 methotrexate sodium 2.5 mg tablet 20 mg PO .every week 06/18/24 09/17/25 multivitamin with minerals-folic 1 tab PO DAILY 06/18/24 09/17/25 acid 0.4 mg tablet prednisolone acetate 1 % eye 1 drp ophthalmic (eye) DAILY 06/18/24 09/17/25 drops,suspension insulin lispro 100 unit/mL 15 unit SUBCUT TID PRN blood sugar 11/10/24 09/17/25 subcutaneous cartridge (Humalog U-100 Insulin) semaglutide 0.25 mg or 0.5 mg (2 2 mg SUBCUT .Once a week 06/18/25 09/17/25 mg/3 mL) subcutaneous pen injector (Ozempic) epinastine 0.05 % eye drops 1 drp ophthalmic (eye) Q12H 07/17/25 09/17/25 tamsulosin 0.4 mg capsule 0.4 mg PO DAILY 09/19/25 09/19/25 Previous Rx's ?Medication ?Instructions ?Recorded CPAP Mask, tubing and all other #1 ea 06/20/24 supplies for CPAP Bipap, mask and supplies #1 ea 09/19/24 bupropion HCl 300 mg 24 hr tablet, 300 mg PO DAILY #90 tabs 11/05/24 extended release metoprolol succinate 50 mg 50 mg PO DAILY #90 tabs 11/14/24 tablet,extended release 24 hr cetirizine 10 mg tablet 10 mg PO DAILY #90 tabs 12/18/24 ezetimibe 10 mg tablet 10 mg PO DAILY #90 tabs 12/18/24 magnesium L-lactate 84 mg 84 mg PO BID #60 tabs 12/18/24 tablet,extended release (Magtab) ropinirole 3 mg tablet 3 mg PO .qhs #90 tabs 12/18/24 alprazolam 0.5 mg tablet 0.5 mg PO DAILY anxiety #4 tabs 12/20/24 Bipap with mask and supplies #1 ea 01/28/25 gabapentin 300 mg capsule 300 mg PO DAILY #90 caps 02/04/25 apixaban 5 mg tablet (Eliquis) 5 mg PO BID #180 tabs 03/04/25 metoclopramide HCl 10 mg tablet 10 mg PO DAILY #30 tabs 04/26/25 isosorbide mononitrate 30 mg See Rx Instructions .Route 05/11/25 tablet,extended release 24 hr .COMPLEX #90 tabs COVID vaccine #1 ea 07/26/25 furosemide 40 mg tablet See Rx Instructions .Route 08/07/25 .COMPLEX #180 tabs folic acid 1 mg tablet 1 mg PO DAILY #90 tabs 08/12/25 omeprazole 20 mg capsule,delayed 20 mg PO DAILY #90 caps 08/12/25 release prednisone 20 mg tablet 20 mg PO TID #15 tabs 09/18/25 tizanidine 4 mg tablet 4 mg PO Q6H PRN muscle spasticity 09/18/25 #20 tabs Allergies Allergy/AdvReac Type Severity Reaction Status Date / Time amoxicillin Allergy Severe anaphylaxis Verified 09/17/25 17:12 sulfamethoxazole (From Allergy Severe skin Verified 09/17/25 17:12 Bactrim) blisters trimethoprim (From Bactrim) Allergy Severe skin Verified 09/17/25 17:12 blisters meloxicam Allergy Intermediate swelling Verified 09/17/25 17:12 chlorhexadine Allergy Severe rash Uncoded 09/17/25 17:12 Review of Systems Const: Denies: fever(s) or chills Card: Denies: chest pain Resp: Denies: dyspnea GI: Denies: abdominal pain : Denies: dysuria, urinary frequency or urinary urgency Musc: Reports: extremity pain and joint pain; Denies: neck pain or back pain Skin/Breast: Denies: rash PFSH ED PFSH: Medical History Acute embolism and thrombosis of unspecified deep veins of right lower extremity NAITVIDAD (obstructive sleep apnea) Uses BiPAP Iron deficiency anemia Hx of bacterial pneumonia History of cystic kidney disease Seasonal allergies GERD (gastroesophageal reflux disease) Ventricular tachycardia Major depression Polymyalgia rheumatica Graves disease Laryngopharyngeal reflux Restless leg syndrome Congestive heart failure follows with cardiology Rheumatoid arthritis follows with rheumatology Vitamin D deficiency Hyperlipidemia Essential hypertension Type 2 diabetes mellitus with complication Patient sees Dr Kulwinder Cutler Surgical History History of bariatric surgery History of lumbar fusion Hx of fusion of cervical spine Hx of cataract extraction left and right eye Hx of cholecystectomy History of liver biopsy benign cysts Hx of eye surgery right eye Hx of thyroidectomy Hx of arthroscopy of right knee Hx of arthroscopy of left knee Hx of repair of right rotator cuff History of left shoulder replacement History of carpal tunnel surgery of left wrist Hx of colonoscopy with polypectomy 2023 Hx of right knee surgery History of tonsillectomy and adenoidectomy Hx of cornea transplant Family History Father Congestive heart failure (CHF) COPD (chronic obstructive pulmonary disease) Other Breast cancer Diabetes Heart disease Hyperlipidemia Hypertension Lung cancer Stroke Thyroid cancer Social History Smoking and tobacco/nicotine status: never used tobacco/nicotine Second hand smoke exposure: Yes (father) Alcohol intake: current Alcohol intake frequency: holidays/special occasions only Substance/Drug Use: never Household members: spouse Marital status: Highest education level completed: Master's Degree Current occupational status: retired 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 Physical Exam Const: COMMON NORMALS: no acute distress GENERAL APPEARANCE: cooperative and comfortable ORIENTATION/CONSCIOUSNESS: Yes awake, Yes oriented to person, Yes oriented to place and Yes oriented to time HENMT: COMMON NORMALS: normocephalic, atraumatic and hearing grossly normal bilaterally HEAD & SCALP: normocephalic and atraumatic Resp: COMMON NORMALS: normal respiratory effort, No retractions, No use of accessory muscles and clear to auscultation bilaterally AUSCULTATION: clear to auscultation bilaterally Cardio: COMMON NORMALS: regular rate, regular rhythm and No murmurs present (Cardio) RATE: regular rate RHYTHM: regular rhythm GI: COMMON NORMALS: Soft to palpation and No hepatosplenomegaly present AUSCULTATION: Yes normoactive bowel sounds PALPATION: Yes Soft to palpation, No Tenderness to palpation present (GI), No Guarding due to palpation present (GI) and Yes No hepatosplenomegaly present Extremity: COMMON NORMALS: normal to inspection, capillary refill normal, no clubbing, cyanosis or edema, no calf tenderness and no pedal edema OTHER: Sensation bilaterally lower extremities normal no saddle paresthesias. Flexion internal extra rotation of the right hip does not elicit any pain. Neuro: SENSORIUM/ORIENTATION: Yes oriented to person, Yes oriented to place and Yes oriented to time Skin: COMMON NORMALS: no rashes or lesions noted GENERAL SKIN EXAM: no rashes or lesions noted Course Vital Signs: Vital signs: Vital Signs Temperature 98.1 F 09/18/25 08:18 Pulse Rate 56 L 09/18/25 09:26 Respiratory Rate 18 09/18/25 08:18 Blood Pressure 118/65 09/18/25 09:26 Pulse Oximetry 96 09/18/25 09:26 Oxygen Delivery Me thod Room Air 09/18/25 08:18 MDM - Extremity (Nontraumatic) Medical Decision Making Patient seems to have more lumbar radiculopathy like symptoms. He particularly refers the pain to the through the buttock and lateral thigh I suspect L4 V nerve root impingement. Will discharge home prednisone taper tizanidine to use as needed follow-up with primary care doctor may require advanced imaging and/or referral to physical therapy. Lab Data Radiology Impressions Hip/Pelvis X-Ray 09/18/25 08:20 IMPRESSION: 1. No obvious fracture. All radiology interpretation(s) finalized by discharge Discharge Plan Discharge Patient Disposition: Home Clinical Impression: Lumbar radiculopathy, right Condition: Stable Prescriptions: New tizanidine 4 mg tablet 4 mg PO Q6H PRN (Reason: muscle spasticity) Qty: 20 0RF Rx Instructions: do not exceed 3 doses per 24 hrs prednisone 20 mg tablet 20 mg PO TID Qty: 15 0RF Rx Instructions: 1 p.o. 3 times daily x3 days, 1 p.o. twice daily x2 days, 1 p.o. daily x2 days No Action prednisolone acetate 1 % drops,suspension 1 drp ophthalmic (eye) DAILY methotrexate sodium 2.5 mg tablet 20 mg PO .every week albuterol sulfate 2.5 mg /3 mL (0.083 %) solution for nebulization 2.5 mg inhalation Q6H PRN (Reason: shortness of breath or wheezing) acetaminophen [Tylenol Arthritis Pain] 650 mg tablet extended release 650 mg PO Q8H docusate sodium [Colace] 100 mg capsule 100 mg PO DAILY PRN (Reason: Constipation) levothyroxine 200 mcg tablet 200 mcg PO DAILY insulin lispro [Humalog U-100 Insulin] 100 unit/mL solution 140 unit continuous subcutaneous infusion DAILY multivit with min-folic acid 0.4 mg tablet 1 tab PO DAILY (DME) CPAP Mask, tubing and all other supplies for CPAP See Rx Instructions .ROUTE .MEDSUPPLY Qty: 1 0RF Rx Instructions: As directed (DME) Bipap, mask and supplies See Rx Instructions .Route .MEDSUPPLY Qty: 1 6RF Rx Instructions: Settings . Use at night. Ozempic 0.25 mg or 0.5 mg (2 mg/3 mL) pen injector 2 mg SUBCUT .Once a week metoprolol succinate 50 mg tablet extended release 24 hr 50 mg PO DAILY Qty: 90 3RF tamsulosin 0.4 mg capsule 0.4 mg PO DAILY Eliquis 5 mg tablet 5 mg PO BID Qty: 180 3RF epinastine 0.05 % drops 1 drp ophthalmic (eye) Q12H bupropion HCl 300 mg tablet extended release 24 hr 300 mg PO DAILY Qty: 90 3RF cetirizine 10 mg tablet 10 mg PO DAILY Qty: 90 3RF ezetimibe 10 mg tablet 10 mg PO DAILY Qty: 90 3RF magnesium L-lactate [Magtab] 84 mg tablet extended release 84 mg PO BID Qty: 60 6RF ropinirole 3 mg tablet 3 mg PO .qhs Qty: 90 3RF alprazolam 0.5 mg tablet 0.5 mg PO DAILY Qty: 4 0RF Rx Instructions: take one the night before MRI one morning of and one 2 hours before (DME) Bipap with mask and supplies See Rx Instructions .Route .MEDSUPPLY Qty: 1 0RF Rx Instructions: Use while sleeping. Settings . gabapentin 300 mg capsule 300 mg PO DAILY Qty: 90 2RF metoclopramide HCl 10 mg tablet 10 mg PO DAILY Qty: 30 6RF isosorbide mononitrate 30 mg tablet extended release 24 hr See Rx Instructions .ROUTE .COMPLEX Qty: 90 3RF Dose Instruction: TAKE 1 TABLET BY MOUTH DAILY Rx Instructions: TAKE 1 TABLET BY MOUTH DAILY (DME) COVID vaccine See Rx Instructions .Route .MEDSUPPLY Qty: 1 0RF Rx Instructions: Give 1 dose IM per guidelines furosemide 40 mg tablet See Rx Instructions .ROUTE .COMPLEX Qty: 180 3RF Dose Instruction: TAKE 2 TABLETS(80 MG) BY MOUTH DAILY Rx Instructions: TAKE 2 TABLETS(80 MG) BY MOUTH DAILY omeprazole 20 mg capsule,delayed release(DR/EC) 20 mg PO DAILY Qty: 90 3RF folic acid 1 mg tablet 1 mg PO DAILY Qty: 90 3RF Humalog U-100 Insulin 100 unit/mL cartridge 15 unit SUBCUT TID PRN (Reason: blood sugar) Rx Instructions: Patient only uses this if his insulin pump is empty Discharge Orders: Discharge ED (Routine); Ordered 09/18/25 Ordered By: Venkatesh Burdick Referrals: Rupesh Demarco MD [Primary Care Provider, Family Practice] Patient Instructions: Opioid Safety, Pain Management, Patient Portal & Stephani Instructions Activity Restrictions/Additional Instructions: Thank you for choosing [facility] for your healthcare needs today. It is very important that you follow up as instructed or that you return to the Emergency Department should you have concerns or if your condition changes or worsens in any way. Emergency department visits are focused on emergent conditions, in some cases you may require further evaluation on an outpatient basis. You were seen for pain in your hip radiating down your right leg. Your x-ray of your hip was negative suspect this is sciatic pain from nerve root irritation or impingement. Will discharge you home on a steroid taper muscle relaxer follow-up with your primary care doctor. (Please note that included in your discharge packet is information concerning opioid safety and pain management. This information is given to all patients were discharged from the ER regardless of their discharge diagnosis or the medicines they usually take or are prescribed.) Print Language: Syriac Coding Level of Care Code ED Repairer Evaporator for Kosta Ocampo
[2025-09-18] MEDS: methylPREDNISolone sod succ 125 mg/2 mL INJ IM (09:25)
[2025-09-18 09:26] VITALS: BP 118/65; PULSE 56; O2SAT 96
== END 2025-09-18 09:43 | disposition home or self-care (01) ==
PROVIDERS: Emergency Provider Family Medicine; PCP Family Medicine
DX: M54.16 Radiculopathy, lumbar region (principal); Z79.4 Long term (current) use of insulin; Z79.01 Long term (current) use of anticoagulants; E11.9 Type 2 diabetes mellitus without complications; E78.5 Hyperlipidemia, unspecified; I11.0 Hypertensive heart disease with heart failure; I50.9 Heart failure, unspecified
CPT/HCPCS: 73502; 96372; 99284; J1885; J2919

== ENCOUNTER → 2025-10-24 08:42 | Outpatient (BNVA) | payer MEDICARE, OTHER, SELFPAY | PROVIDERS: PCP Family Medicine; Visit Provider Podiatrist Foot & Ankle Surgery | DX: E11.42 Type 2 diabetes mellitus with diabetic polyneuropathy (principal); L60.3 Nail dystrophy; L60.8 Other nail disorders; R60.9 Edema, unspecified; G62.9 Polyneuropathy, unspecified; Z79.4 Long term (current) use of insulin; Z79.85 Long-term (current) use of injectable non-insulin antidiabetic drugs | CPT/HCPCS: 11721 ==